=== PATIENT | male | born 1935 | race Caucasian/White ===

== ENCOUNTER 2018-05-06 14:43 | Emergency (ER) | payer MEDICARE ==
[~2018-05-06] VITALS: Ht 170.2 cm; Wt 81.6 kg
[2018-05-06 15:13] LABS: BASOPHILS % (AUTO) 0.3 % (0.0-2.0); EOSINOPHILS % (AUTO) 3.5 % (0.0-6.0); HEMATOCRIT 36 % (39-51); HEMOGLOBIN 12.8 g/dL (13.5-17.5); LYMPHOCYTES # (AUTO) 3.5 /CMM (0.8-4.8); LYMPHOCYTES % (AUTO) 29.7 % (20.0-44.0); MEAN CORPUSCULAR HEMOGLOBIN 31 PG (26.0-33.0); MEAN CORPUSCULAR HGB CONC 36 g/dl (31.0-36.0); MEAN CORPUSCULAR VOLUME 88 fL (80-96); MONOCYTES # (AUTO) 0.9 /CMM (0.1-1.30); MONOCYTES % (AUTO) 7.4 % (2.0-12.0); NEUTROPHILS # (AUTO) 7.1 /CMM (1.8-8.9); NEUTROPHILS % (AUTO) 59.1 % (43.0-81.0); PLATELET COUNT (AUTO) 241 /CMM (150-450); RDW COEFFICIENT OF VARIATION 12.1 (11.5-15.0); RED BLOOD CELL COUNT(AUTO) 4.11 MIL/uL (4.5-6.0); WHITE BLOOD COUNT (AUTO) 11.9 K/uL (4.3-11.0)
[2018-05-06 15:24] LABS: CALCIUM, SERUM 8.4 mg/dL (8.5-10.1); CARBON DIOXIDE 29 mmol/L (21-32); CHLORIDE 104 mmol/L (98-107); GLUCOSE 128 mg/dL (74-106); POTASSIUM 3.4 mmol/L (3.5-5.1); SODIUM SERUM 139 mmol/L (136-145); UREA NITROGEN, BLOOD 10 mg/dL (7-18)
[2018-05-06] MEDS ORDERED: IV NS 0.9% 500 ML BAG IV ONE (15:30)
[2018-05-06 15:40] LABS: APPEARANCE,URINE Cloudy (CLEAR); BILIRUBIN,URINE SMALL (NEGATIVE); BLOOD, URINE Large Ery/uL (NEGATIVE); COLOR,URINE Red (YELLOW); KETONES,URINE Negative (NEGATIVE); LEUKOCYTE ESTERASE ,URINE Trace (NEGATIVE); NITRITE, URINE Negative (NEGATIVE); PH,URINE 8.5 (5.0-8.0); PROTEIN,URINE >=300 mg/dl (NEGATIVE); UGLUCOSE Negative (NEGATIVE)
[2018-05-06 15:47] LABS: BACTERIA,URINE None seen /HPF (None Seen); RBC,URINE TOO NUMEROUS TO COUN /HPF (0-2); SQUAMOUS EPITHELIAL CELL,UR Few /HPF (None Seen); WBC,URINE 0-3 /HPF (0-3)
[2018-05-06 16:28] VITALS: BP 139/81
== END 2018-05-06 16:28 | disposition home or self-care (01) ==
LOC: ER 14:45
DX: R31.9 Hematuria, unspecified (principal); I10 Essential (primary) hypertension; N40.0 Benign prostatic hyperplasia without lower urinary tract symptoms; Z98.890 Other specified postprocedural states
CPT/HCPCS: 36415; 80048-TC; 81000-TC; 85025-TC; 85730-TC; 87086-TC; 87186-TC; A4606; J7040; Z7610

== ENCOUNTER 2018-05-13 10:46 | Emergency (ER) | payer MEDICARE ==
[~2018-05-13] VITALS: Ht 170.2 cm; Wt 79.4 kg
[2018-05-13 10:46] VITALS: BP 146/82
--- NOTE | 2018-05-13 10:55 | NUR ---
PATIENT TO ED FOR KO CATHETER REMOVAL. PATIENT HAS NO OTHER COMPLAIN,. VSS
--- NOTE | 2018-05-13 10:56 | NUR ---
MD GARCIA AT BEDSIDE.
--- NOTE | 2018-05-13 11:01 | NUR ---
PATIENT TOLERATED THE PROCEDURE.
--- NOTE | 2018-05-13 11:01 | NUR ---
DEJUAN KO PER DR GARCIA ORDER.
== END 2018-05-13 11:09 | disposition home or self-care (01) ==
LOC: ER 10:47
DX: Z46.6 Encounter for fitting and adjustment of urinary device (principal); R33.9 Retention of urine, unspecified; N40.0 Benign prostatic hyperplasia without lower urinary tract symptoms; Z98.890 Other specified postprocedural states
CPT/HCPCS: A4606; Z7610

== ENCOUNTER 2018-05-14 09:16 | Emergency (ER) | payer MEDICARE ==
[~2018-05-14] VITALS: Ht 172.7 cm; Wt 81.6 kg
[2018-05-14 09:26] VITALS: BP 153/90
== END 2018-05-14 10:15 | disposition home or self-care (01) ==
LOC: ER 09:17
DX: N40.1 Benign prostatic hyperplasia with lower urinary tract symptoms (principal); R33.8 Other retention of urine
CPT/HCPCS: A4606; Z7610

== ENCOUNTER 2019-05-13 11:42 | Emergency (ER) | payer MEDICARE, OTHER ==
[~2019-05-13] VITALS: Ht 167.6 cm; Wt 74.4 kg
[2019-05-13 14:05] VITALS: BP 146/85
--- NOTE | 2019-05-13 14:20 | NUR ---
BRANDEN CALLED FOR RIDE, ANGELA WILL BE BACK ANY MINUTE ACCORDING TO HER
--- NOTE | 2019-05-13 14:22 | NUR ---
KITCHEN CALLD FOR TO GO [facility] REQUESTED
--- NOTE | 2019-05-13 14:25 | NUR ---
Patient discharged to home in stable condition. Written and verbal after care instructions given. Patient verbalizes understanding of instruction.
== END 2019-05-13 14:47 | disposition home or self-care (01) ==
LOC: ER 11:42
DX: S42.432A Displaced fracture (avulsion) of lateral epicondyle of left humerus, initial encounter for closed fracture (principal); Z98.890 Other specified postprocedural states; X58.XXXA Exposure to other specified factors, initial encounter; Y93.89 Activity, other specified; Y92.89 Other specified places as the place of occurrence of the external cause; Y99.8 Other external cause status
CPT/HCPCS: 73080-TC; 73130-TC

== ENCOUNTER 2019-08-03 00:34 | Inpatient (IN) | payer MEDICARE ==
[~2019-08-03] VITALS: Ht 165.1 cm; Wt 68.0 kg
--- NOTE | 2019-08-03 00:50 | NUR ---
PT BIBFRIEND C/O DIFFICULTY SWALLOWING X1 WEEK. DENIES SOB, STATES DIFFICULT WHILE EATING PT STATES "MY FOOD DOESN'T STAY DOWN". PT AAOX4. RESPIRATIONS EVEN AND UNLABORED. SKIN WARM AND INTACT. NO ACUTE DISTRESS NOTED AT THIS TIME. PLACED ON MONITOR, WILL CONTINUE TO MONITOR
[2019-08-03] MEDS ORDERED: IV NS 0.9% 500 ML BAG IV ONE (01:00)
--- NOTE | 2019-08-03 01:10 | NUR ---
IV INITIATED RAC 20G. LABS DRAWN FROM SITE. STOCK PREPARER AT BEDSIDE FOR COLLECTION. IV INTACT AND PATENT, PLACED ON SALINE LOCK
[2019-08-03 01:15] LABS: BASOPHILS # (AUTO) 0.1 /CMM (0.0-0.2); BASOPHILS % (AUTO) 1.2 % (0.0-2.0); HEMATOCRIT 42 % (39-51); HEMOGLOBIN 14.2 g/dL (13.5-17.5); LYMPHOCYTES # (AUTO) 3.5 /CMM (0.8-4.8); LYMPHOCYTES % (AUTO) 27.6 % (20.0-44.0); MEAN CORPUSCULAR HGB CONC 34 g/dl (31.0-36.0); MEAN CORPUSCULAR VOLUME 89 fL (80-96); MONOCYTES # (AUTO) 1.3 /CMM (0.1-1.30); NEUTROPHILS # (AUTO) 7.2 /CMM (1.8-8.9); NEUTROPHILS % (AUTO) 57.2 % (43.0-81.0); PLATELET COUNT (AUTO) 408 /CMM (150-450); RED BLOOD CELL COUNT(AUTO) 4.65 MIL/uL (4.5-6.0); WHITE BLOOD COUNT (AUTO) 12.6 K/uL (4.3-11.0)
[2019-08-03 01:21] LABS: CALCIUM, SERUM 8.7 mg/dL (8.5-10.1); CARBON DIOXIDE 27 mmol/L (21-32); CHLORIDE 103 mmol/L (98-107); CREATININE 0.8 mg/dL (0.6-1.3); GLUCOSE 116 mg/dL (74-106); POTASSIUM 3.8 mmol/L (3.5-5.1); SODIUM SERUM 138 mmol/L (136-145); UREA NITROGEN, BLOOD 11 mg/dL (7-18)
[2019-08-03] MEDS ORDERED: MAGNESIUM HYDROXIDE 30 ML UDC PO PRN (02:30)
[2019-08-03] MEDS ORDERED: MAG HYDROX/AL HYDROX/SIMETH 30 ML UDC PO PRN (02:30)
[2019-08-03] MEDS ORDERED: Z GUARD REMEDY 2 OZ OINT TP PRN (02:30)
[2019-08-03] MEDS ORDERED: ACETAMINOPHEN 325 MG TABLET PO PRN (02:30)
[2019-08-03] MEDS ORDERED: ONDANSETRON HCL/PF 4 MG/2 ML VIAL IVP PRN (02:30)
[2019-08-03] MEDS ORDERED: HYDROCODONE/APAP 5/325MG 1 EACH TABLET PO PRN (02:30)
--- NOTE | 2019-08-03 03:26 | NUR ---
REPORT CALLED TO BLOW DOWN OPERATORCAROLA BROWN. WILL TRANSPORT PT VIA ACLS PROTOCOL.
--- NOTE | 2019-08-03 03:35 | NUR ---
PT WAS TRANSFERRED TO THE THIRD FLOOR IN STABLE CONDITION.
[2019-08-03 03:40] VITALS: BP 148/74
--- NOTE | 2019-08-03 03:40 | NUR ---
RN MS ADMITTING OPENING NOTES RECEIVED PATIENT FROM ER VIA GURNEY SAFELY TRANSFERRED TO BED, AWAKE ALERT AND ORIENTED X2 NOTED, RESPIRATIONS EVEN AND UNLABORED WITH EQUAL RISE AND FALL OF CHEST, DENIES ANY PAIN OR DISCOMFORT, KO CATHETER INTACT AND PATENT, NOTED URINE YELLOW WITH SLIGHT SEDIMENTS CLEAR, BODY ASSESSMENT DONE SACRAL REDNESS AND LEFT ARM SCAB PICTURES TAKEN IN CHART, BELONGINGS LIST DONE , FRIEND ANGELA CORADO WILL TAKE WALLET HOME PATIENT AWAKE, IV SITE TO RIGHT AC #20 G INTACT AND PATENT, NO REDNESS, NO INFILTRATION, NPO STATUS, ORIENTED TO STAFF AND CALL LIGHT AND KEPT WITHIN REACH,AT THIS TIME DISCUSSED PLAN OF CARE, REMAINS COMFORTABLE WILL CONTINUE TO MONITOR FOR ANY CHANGES AND FOLLOW MD ORDERS.
[2019-08-03] MEDS: IV NS 0.9% 1,000 ML IV PRN (04:15)
[2019-08-03 05:00] VITALS: BP 148/74
[2019-08-03] MEDS ORDERED: TAMS-12 PO (05:24)
--- NOTE | 2019-08-03 06:32 | NUR ---
RN MS CLOSING NOTES PATIENT IN BED AWAKE ALERT AND ORIENTED X2, RESPIRATIONS EVEN AND UNLABORED WITH EQUAL RISE AND FALL OF CHEST,DENIES ANY PAIN OR DISCOMFORT, KO CATHETER INTACT DRAINING WELL 250CC OUTPUT, IV SITE RIGHT AC #20 INTACT AND PATENT, IVF RUNNING ORDERED, REMAINS COMFORTABLE AND CLEAN AT THIS TIME, SAFETY PRECAUTIONS IN PLACE, LOW BED AND LOCKED, BED ALARM IN PLACE, ALL NEEDS ATTENDED AT THIS TIME, WILL CONTINUE TO MONITOR.
[2019-08-03] MEDS: PANTOPRAZOLE 40 MG VIAL IV SCH (07:30)
[2019-08-03 08:00] VITALS: BP 128/68
--- NOTE | 2019-08-03 11:20 | NUR ---
WOUND CARE CONSULT: PT PRESENTS WITH DRY ABRASIONS TO LEFT ELBOW AND BLANCHABLE REDNESS TO BUTTOCKS, PRESENT ON ADMISSION. RECOMMENDATIONS MADE FOR SKIN PROTECTION. DISCUSSED WITH NURSING STAFF. STEFANI RUBIO. WILL SEE PRN. HOWARD IN AGREEMENT WITH PLAN OF CARE. Addendum: 08/03/19 at 1121 by SUKUMAR GUILLAUME WNDNU Amended: Links added.
[2019-08-03 16:00] VITALS: BP 137/82
--- NOTE | 2019-08-03 17:00 | NUR ---
Urine sample sent to lab for US
--- NOTE | 2019-08-03 19:00 | NUR ---
Patient awake , resting in bed. Alert and oriented x2, episodes of forgetfulness. Patient remains NPO status, ice chips ok to take in upright position. Caregiver at bedside. Patient with F/C, for retention. Came with catheter from home. All needs attended. GI consult pending. All needs attended. Iv line flushing well. Will endorse to next shift for BRINA.
--- NOTE | 2019-08-03 19:10 | NUR ---
MS RN NOTES RECEIVED PT IN BED AWAKE AND ABLE TO MAKE NEEDS KNOWN WITH CAREGIVER AT BEDSIDE. PT A/O X2. RESPIRATIONS EVEN AND UNLABORED WITH NO S/S OF ACUTE DISTRESS OR SOB NOTED. NO COMPLAINTS OF PAIN AT THIS TIME. KO CATHETER INTACT AND DRAINING WELL. PT WITH RAC #20G PATENT AND INTACT. SAFETY MEASURES IN PLACE WITH BED IN LOWEST LOCKED POSITION WITH SIDE RAILS UP X2. CALL LIGHT WITHIN REACH. WILL CONTINUE TO MONITOR.
[2019-08-03 19:44] LABS: APPEARANCE,URINE Slightly Cloudy (CLEAR); BILIRUBIN,URINE Negative (NEGATIVE); BLOOD, URINE Small Ery/uL (NEGATIVE); COLOR,URINE Dark (YELLOW); KETONES,URINE Negative (NEGATIVE); LEUKOCYTE ESTERASE ,URINE Large (NEGATIVE); NITRITE, URINE Positive (NEGATIVE); PROTEIN,URINE 30 mg/dl (NEGATIVE); UGLUCOSE Negative (NEGATIVE)
[2019-08-03 20:00] VITALS: BP 145/71
[2019-08-03 20:13] LABS: BACTERIA,URINE Many /HPF (None Seen); SQUAMOUS EPITHELIAL CELL,UR Rare /HPF (None Seen)
[2019-08-03 20:14] LABS: WBC,URINE 51-80 /HPF (0-3)
--- NOTE | 2019-08-03 21:36 | NUR ---
MS RN NOTES EXPLAINED TO PT AND CAREGIVER ABOUT PENDING PROCEDURE. CAREGIVER WANTS TO WAIT BEFORE SIGNING CONSENT FORMS, STATED THAT HE WANTED TO TALKED TO THE DAUGHTER FIRST. CHARGE NURSE MADE AWARE. WILL CONTINUE TO MONITOR.
[2019-08-04 06:25] LABS: BASOPHILS # (AUTO) 0.1 /CMM (0.0-0.2); BASOPHILS % (AUTO) 0.9 % (0.0-2.0); EOSINOPHILS % (AUTO) 3.9 % (0.0-6.0); HEMATOCRIT 39 % (39-51); HEMOGLOBIN 13.4 g/dL (13.5-17.5); LYMPHOCYTES # (AUTO) 2.5 /CMM (0.8-4.8); LYMPHOCYTES % (AUTO) 23.6 % (20.0-44.0); MEAN CORPUSCULAR HGB CONC 34 g/dl (31.0-36.0); MEAN CORPUSCULAR VOLUME 89 fL (80-96); NEUTROPHILS # (AUTO) 6.5 /CMM (1.8-8.9); NEUTROPHILS % (AUTO) 61.6 % (43.0-81.0); PLATELET COUNT (AUTO) 394 /CMM (150-450); RED BLOOD CELL COUNT(AUTO) 4.41 MIL/uL (4.5-6.0); WHITE BLOOD COUNT (AUTO) 10.5 K/uL (4.3-11.0)
--- NOTE | 2019-08-04 06:35 | NUR ---
MS RN NOTES CAREGIVER SPOKE WITH PT'S SISTER, CONFIRMED THAT IT IS OK FOR PROCEDURE. WILL HAVE PT SIGN CONSENTS. PIPE ORGAN INSTALLER STATED THAT HE WILL HAVE IT SIGNED WITH ON COMING NURSE. CHARGE NURSE MADE AWARE.
--- NOTE | 2019-08-04 06:37 | NUR ---
MS RN NOTES PT IN BED ASLEEP BUT EASILY AWOKEN VERBALLY OR BY TOUCH. PT A/O X1-2 AND ABLE TO MAKE NEEDS KNOWN WITH CAREGIVER AT BEDSIDE. RESPIRATIONS EVEN AND UNLABORED WITH NO S/S OF ACUTE DISTRESS OR SOB NOTED THROUGHOUT SHIFT. NO COMPLAINTS OF PAIN AT THIS TIME. KO CATHETER INTACT AND DRAINING WELL. PT WITH RAC #20G PATENT AND INTACT. SAFETY MEASURES IN PLACE WITH BED IN LOWEST LOCKED POSITION WITH SIDE RAILS UP X2. PT KEPT CLEAN, DRY, AND COMFORTABLE. CALL LIGHT WITHIN REACH. WILL ENDORSE TO ONCOMING NURSE FOR BRINA.
[2019-08-04 06:45] LABS: CALCIUM, SERUM 8.5 mg/dL (8.5-10.1); CREATININE 0.6 mg/dL (0.6-1.3); PHOSPHORUS 3.2 mg/dL (2.5-4.9); POTASSIUM 3.6 mmol/L (3.5-5.1)
[2019-08-04 06:53] LABS: THYROID STIMULATING HORMONE 0.085 uIU/mL (0.358-3.74)
[2019-08-04] MEDS: PANTOPRAZOLE 40 MG VIAL IV SCH (07:30)
[2019-08-04 08:00] VITALS: BP 147/70
--- NOTE | 2019-08-04 08:25 | NUR ---
patient picked up by OR staff for scheduled EGD . Patient awake and oriented x2.
--- NOTE | 2019-08-04 10:30 | NUR ---
patient back from EGD . Awake and oriented x2 . stable on room air with VS within baseline
[2019-08-04] MEDS ORDERED: DIATR MEGLU/DIATRIZOATE SODIUM 120 ML BOTTLE (GASTROGRAPHIN) ONE ×2 (11:09→11:36)
[2019-08-04] MEDS ORDERED: BARIUM SULFATE 98% 135 ML SUSP.RECON PO ONE (11:10)
--- NOTE | 2019-08-04 11:11 | NUR ---
patient out of department for Esophagram
[2019-08-04] MEDS: CEFTRIAXONE 2 G in IV NS 0.9% 100 ML IV SCH (12:15)
--- NOTE | 2019-08-04 14:32 | NUR ---
patient had episode of confusion and pulled out IV line. A new IV line inserted to the right arm G22, Flushing well . Patient transferred to room 312-1 with a sitter for safety.Will continue to monitor.
[2019-08-04] MEDS: IV NS 0.9% 1,000 ML IV PRN (15:14)
[2019-08-04 16:00] VITALS: BP 139/74
[2019-08-04] MEDS ORDERED: CEPHALEXIN MONOHYDRATE 500 MG CAPSULE PO SCH (17:00)
--- NOTE | 2019-08-04 19:30 | NUR ---
MS RN PM OPENING NOTE BEDSIDE REPORT RECIEVED FROM SHERRY SRIVASTAVA. PT IN BED ALERT AND ORIENTED X2 CONVERSING. BLAYNE GUADALUPE A SITTER PRESENT AT THE BEDSIDE. RESPIRATIONS EVEN AND UNLABORED WITH NO S/S OF ACUTE DISTRESS DENIES COMPLAINTS OF PAIN AT THIS TIME. KO CATHETER INTACT AND DRAINING ANJALI URINE. SAFETY MEASURES IN PLACE WITH BED IN LOW LOCKED POSITION WITH SIDE RAILS UP X3. CALL LIGHT WITHIN REACH. WILL CONT TO MONITOR.
[2019-08-04 20:00] VITALS: BP 124/68
[2019-08-05] MEDS: PANTOPRAZOLE 40 MG VIAL IV SCH (06:15)
[2019-08-05] MEDS: IV NS 0.9% 1,000 ML IV PRN (06:16)
[2019-08-05 06:38] LABS: BASOPHILS # (AUTO) 0.1 /CMM (0.0-0.2); BASOPHILS % (AUTO) 1.2 % (0.0-2.0); EOSINOPHILS % (AUTO) 3.5 % (0.0-6.0); HEMATOCRIT 40 % (39-51); HEMOGLOBIN 13.4 g/dL (13.5-17.5); LYMPHOCYTES # (AUTO) 2.8 /CMM (0.8-4.8); LYMPHOCYTES % (AUTO) 24.6 % (20.0-44.0); MEAN CORPUSCULAR HGB CONC 34 g/dl (31.0-36.0); MEAN CORPUSCULAR VOLUME 89 fL (80-96); MONOCYTES % (AUTO) 8.7 % (2.0-12.0); NEUTROPHILS # (AUTO) 6.9 /CMM (1.8-8.9); PLATELET COUNT (AUTO) 399 /CMM (150-450); WHITE BLOOD COUNT (AUTO) 11.2 K/uL (4.3-11.0)
[2019-08-05 06:52] LABS: CALCIUM, SERUM 8.6 mg/dL (8.5-10.1); CREATININE 0.7 mg/dL (0.6-1.3); MAGNESIUM 2.2 mg/dL (1.8-2.4); POTASSIUM 3.5 mmol/L (3.5-5.1)
--- NOTE | 2019-08-05 07:25 | NUR ---
MS RN OPENING NOTES RECEIVED PT IN AWAKE. A/O X1. SITTER AT BEDSIDE. PT TOLERATING RA, WITH NO ACUTE RESPIRATORY DISTRESS NOTED. PT DENIES PAIN OR ANY DISCOMFORT AT THIS TIME. PT ALSO DENIES QUESTIONS OR CONCERNS AT THIS MOMENT. IVF NS AT 75ML/HR TO RFA G22, INTACT AND FLUID INFUSING WELL. PT KEPT COMFORTABLE IN BED. CALL LIGHT KEPT WITHIN REACH. HOB ELEVATED. PT'S BED IN LOWEST, LOCKED POSITION WITH SR X3. WILL CONTINUE PLAN OF CARE.
[2019-08-05] MEDS: CEFTRIAXONE 2 G in IV NS 0.9% 100 ML IV SCH (10:20)
[2019-08-05] MEDS ORDERED: CEPH-570 PO (14:40)
--- NOTE | 2019-08-05 15:30 | NUR ---
MS RN NOTES PT REFUSED FOR PICTURES TO BE TAKEN. STATING HE DOESN'T HAVE WOUNDS. SKIN NOTED INTACT BY RN. EXPLAINED UNIT PROTOCOL, PT INSISTED TO REFUSE AND EXCITED TO GO HOME.
--- NOTE | 2019-08-05 16:19 | NUR ---
MS ADULT PSYCHIATRIST NOTES PT TO DISCHARGE TO HOME. PT TOLERATING RA, WITH NO ACUTE RESPIRATORY DISTRESS NOTED. PT DENIES ANY PAIN OR DISCOMFORT AT THE TIME OF DISCHARGE. PIV TO RFA REMOVED, APPLIED DRY DRESSING. REVIEWED AND SIGNED DISCHARGE PAPERS AND INVENTORY LIST BY CAREGIVER/OTTIS. ALL BELONGINGS WITH THE PT. ALL NEEDS AND CARE ATTENDED AND PROVIDED. PT ESCORTED BY TRIM INSTALLER VIA WHEELCHAIR TO THE LOBBY WITH THE CAREGIVER. CN/BONNY AND HABITAT CONSERVATION PLANNER/LW AWARE OF DISCHARGE. PT LEFT THE UNIT AT 1600.
== END 2019-08-05 16:00 | disposition home health service (06) | DRG 392 ==
LOC: ER 00:34 → MED 02:38
PROVIDERS: ADMIT Registered Nurse; ATTEND Registered Nurse
PROC: 0DJ08ZZ Inspection of Upper Intestinal Tract, Via Natural or Artificial Opening Endoscopic (ICD-10-PCS; principal; 2019-08-04)
DX: K22.0 Achalasia of cardia (principal); N39.0 Urinary tract infection, site not specified; N40.0 Benign prostatic hyperplasia without lower urinary tract symptoms; I10 Essential (primary) hypertension; Z66 Do not resuscitate; D72.829 Elevated white blood cell count, unspecified; Z87.891 Personal history of nicotine dependence; B96.20 Unspecified Escherichia coli [E. coli] as the cause of diseases classified elsewhere; B95.2 Enterococcus as the cause of diseases classified elsewhere
CPT/HCPCS: 36415; 71045-TC; 74230-TC; 80048-TC; 80061-TC; 81000-TC; 83735-TC; 84100-TC; 84443-TC; 84484-TC; 85025-TC; 85730-TC; 87081-TC; 87086-TC; 87186-TC; 92526; 92611-TC; C9113; G0378; J0280; J0330; J0696; J7030; J7040; Q9963

== ENCOUNTER 2019-08-28 15:35 | Inpatient (IN) | payer MEDICARE ==
[~2019-08-28] VITALS: Ht 165.1 cm; Wt 66.2 kg
[~2019-08-28 15:35] MED LIST: CEPH-570 PO; TAMS-12 GT
--- NOTE | 2019-08-28 16:05 | NUR ---
[id number], FROM HOME, C/O R RIB PAIN x 2 DAYS, HAVING TROUBLE SWALLOWING x 2 WEEKS. RR IS EVEN AND UNLABORED WITH NAD NOTED. SKIN IS WARM AND DRY. PLACED ON THE MONITOR. WILL CONTINUOUSLY MONITOR THE PATIENT. AWAITING MD FOR EVAL.
--- NOTE | 2019-08-28 16:07 | NUR ---
DR GARCIA AT BS FOR EVAL.
[2019-08-28] MEDS ORDERED: IV NS 0.9% 500 ML BAG IV ONE (16:30)
[2019-08-28 16:31] LABS: BASOPHILS # (AUTO) 0.2 /CMM (0.0-0.2); BASOPHILS % (AUTO) 1.3 % (0.0-2.0); EOSINOPHILS % (AUTO) 3.7 % (0.0-6.0); HEMATOCRIT 38 % (39-51); HEMOGLOBIN 12.8 g/dL (13.5-17.5); LYMPHOCYTES # (AUTO) 3.7 /CMM (0.8-4.8); MEAN CORPUSCULAR HGB CONC 33 g/dl (31.0-36.0); MEAN CORPUSCULAR VOLUME 87 fL (80-96); MONOCYTES # (AUTO) 1.4 /CMM (0.1-1.30); MONOCYTES % (AUTO) 7.9 % (2.0-12.0); NEUTROPHILS # (AUTO) 11.8 /CMM (1.8-8.9); NEUTROPHILS % (AUTO) 66.1 % (43.0-81.0); PLATELET COUNT (AUTO) 535 /CMM (150-450); RED BLOOD CELL COUNT(AUTO) 4.42 MIL/uL (4.5-6.0); WHITE BLOOD COUNT (AUTO) 17.8 K/uL (4.3-11.0)
[2019-08-28 16:37] LABS: CALCIUM, SERUM 8.8 mg/dL (8.5-10.1); CARBON DIOXIDE 27 mmol/L (21-32); CHLORIDE 103 mmol/L (98-107); CREATININE 0.8 mg/dL (0.6-1.3); GLUCOSE 113 mg/dL (74-106); POTASSIUM 3.9 mmol/L (3.5-5.1); SODIUM SERUM 138 mmol/L (136-145); UREA NITROGEN, BLOOD 15 mg/dL (7-18)
[2019-08-28 16:43] LABS: ALANINE AMINOTRANSFERASE 58 U/L (12-78); ALBUMIN 2.6 g/dL (3.4-5.0); ALKALINE PHOSPHATASE 247 U/L (46-116); ASPARTATE AMINOTRANSFERASE 47 U/L (15-37); BILIRUBIN,DIRECT 0.3 mg/dL (0.0-0.2); BILIRUBIN,TOTAL 0.6 mg/dL (0.2-1.0); LIPASE 146 U/L (73-393); TOTAL PROTEIN, SERUM 8.5 g/dL (6.4-8.2)
--- NOTE | 2019-08-28 17:04 | NUR ---
UNABLE TO TOLERATE ORAL FLUIDS. DR GARCIA AWARE.
[2019-08-28] MEDS ORDERED: DONE5TAB34 GT (17:12)
[2019-08-28] MEDS ORDERED: IV NS 0.9% 1,000 ML IV ONE (17:30)
--- NOTE | 2019-08-28 18:17 | NUR ---
REQUESTED [facility] BED
[2019-08-28] MEDS ORDERED: TEMAZEPAM 15 MG CAPSULE PO PRN (19:30)
[2019-08-28] MEDS ORDERED: MAG HYDROX/AL HYDROX/SIMETH 30 ML UDC PO PRN ×2 (19:30)
[2019-08-28] MEDS ORDERED: Z GUARD REMEDY 2 OZ OINT TP PRN (19:30)
[2019-08-28] MEDS ORDERED: ACETAMINOPHEN 325 MG TABLET PO PRN (19:30)
[2019-08-28] MEDS ORDERED: MORPHINE SULFATE INJ 2 MG/ML DISP.SYRIN IV PRN (19:30)
[2019-08-28] MEDS ORDERED: ZOLPIDEM TARTRATE 5 MG TABLET PO PRN (19:30)
[2019-08-28] MEDS ORDERED: HYDROCODONE/APAP 5/325MG 1 EACH TABLET PO PRN (19:30)
[2019-08-28] MEDS ORDERED: MAGNESIUM HYDROXIDE 30 ML UDC PO PRN ×2 (19:30)
[2019-08-28] MEDS ORDERED: ONDANSETRON HCL/PF 4 MG/2 ML VIAL IVP PRN ×2 (19:30)
--- NOTE | 2019-08-28 19:41 | NUR ---
BED ASSIGNMENT 327-2
--- NOTE | 2019-08-28 19:55 | NUR ---
REPORT GIVEN TO CAROLA JOSE FOR BRINA.
--- NOTE | 2019-08-28 20:20 | NUR ---
RN ADMITTING NOTES RECEIVED PT FROM ER, VIA [place]TAE. PT AWAKE ALERT ORIENTED X3, NON AMBULATORY, BREATHING EVEN AND UNLABORED ON ROOM AIR. NO COMPLAINT OF PAIN OR DISCOMFORT AT THIS TIME. IV ACCESS ON THE L AC 18G SL. KO CATH IN PLACE AND DRAINING. BED IN LOWEST LOCKED POSITION, CALL LIGHT WITHIN REACH AT ALL TIMES, WILL CONTINUE TO MONITOR.
[2019-08-28] MEDS: IV D5/0.45 NACL 1,000 ML IV PRN (21:34)
[2019-08-28 22:30] VITALS: BP 124/57
[2019-08-29] VITALS: BP 136/76
[2019-08-29 04:28] VITALS: BP 127/67
--- NOTE | 2019-08-29 06:02 | NUR ---
RN CLOSING NOTES PT REMAINS IN BED SLEEPING INTERMITTENTLY, AND EASILY AROUSED TO NAME CALL. BREATHING EVEN AND UNLABORED ON ROOM AIR. IN NO APPARENT PAIN OR DISCOMFORT AT THIS TIME. IV ACCESS ON THE L WRIST 20G NS @75ML/HR. KO CATH IN PLACE AND DRAINING. BED IN LOWEST LOCKED POSITION, CALL LIGHT WITHIN REACH AT ALL TIMES, WILL ENDORSE TO DAY NURSE FOR BRINA.
[2019-08-29 06:32] LABS: BASOPHILS # (AUTO) 0.1 /CMM (0.0-0.2); BASOPHILS % (AUTO) 0.8 % (0.0-2.0); HEMATOCRIT 37 % (39-51); HEMOGLOBIN 12.3 g/dL (13.5-17.5); LYMPHOCYTES # (AUTO) 2.7 /CMM (0.8-4.8); LYMPHOCYTES % (AUTO) 18.2 % (20.0-44.0); MEAN CORPUSCULAR HGB CONC 33 g/dl (31.0-36.0); MEAN CORPUSCULAR VOLUME 87 fL (80-96); MONOCYTES # (AUTO) 1.1 /CMM (0.1-1.30); MONOCYTES % (AUTO) 7.7 % (2.0-12.0); NEUTROPHILS # (AUTO) 10.4 /CMM (1.8-8.9); NEUTROPHILS % (AUTO) 70.3 % (43.0-81.0); PLATELET COUNT (AUTO) 475 /CMM (150-450); RED BLOOD CELL COUNT(AUTO) 4.28 MIL/uL (4.5-6.0); WHITE BLOOD COUNT (AUTO) 14.8 K/uL (4.3-11.0)
[2019-08-29 06:41] LABS: ALBUMIN 2.3 g/dL (3.4-5.0); BILIRUBIN,TOTAL 0.7 mg/dL (0.2-1.0); CALCIUM, SERUM 8.3 mg/dL (8.5-10.1); CREATININE 0.6 mg/dL (0.6-1.3); PHOSPHORUS 2.6 mg/dL (2.5-4.9); POTASSIUM 3.5 mmol/L (3.5-5.1); TOTAL PROTEIN, SERUM 7.9 g/dL (6.4-8.2)
--- NOTE | 2019-08-29 07:30 | NUR ---
Tele/RN - AM Assessment Patient in bed awake, A/O x 1-2, confused at times, reality orientation provided, afebrile, c/o right rib pain but refused medication for now, stable on room air. Patient was admitted with Simon catheter for urinary retention, hx of BPH. Skin is intact. Fall and aspiration precautions maintained. Labs reviewed, no critical results noted. Patient is currently NPO for dysphagia, pending swallow evaluation and GI consult. All needs attended and met. Will continue with current medical management.
[2019-08-29 08:00] VITALS: BP 150/74
[2019-08-29] MEDS: DONEPEZIL 5 MG TABLET PO SCH (08:22)
[2019-08-29] MEDS: TAMSULOSIN 0.4 MG CAP.SR.24H PO SCH (08:22)
[2019-08-29] MEDS: ENOXAPARIN SODIUM 40 MG/0.4 ML DISP.SYRIN SQ SCH (08:47)
[2019-08-29] MEDS: IV D5/0.45 NACL 1,000 ML IV PRN (09:59)
--- NOTE | 2019-08-29 10:00 | NUR ---
Tele/RN - Hospitalist rounds Seen and examined by KAYLAH Andino with orders, noted and carried out. Urine specimen sent to lab for UA and culture.
[2019-08-29 10:32] LABS: APPEARANCE,URINE CLOUDY (CLEAR); BILIRUBIN,URINE NEGATIVE (NEGATIVE); BLOOD, URINE TRACE-INTA Ery/uL (NEGATIVE); KETONES,URINE NEGATIVE (NEGATIVE); LEUKOCYTE ESTERASE ,URINE MODERATE (NEGATIVE); NITRITE, URINE POSITIVE (NEGATIVE); PROTEIN,URINE NEGATIVE (NEGATIVE); UGLUCOSE NEGATIVE (NEGATIVE)
[2019-08-29 10:34] LABS: COLOR,URINE DARK YELLOW (YELLOW)
[2019-08-29 10:38] LABS: BACTERIA,URINE Many /HPF (None Seen); SQUAMOUS EPITHELIAL CELL,UR Few /HPF (None Seen); WBC,URINE TOO NUMEROUS TO COUN /HPF (0-3)
[2019-08-29] MEDS ORDERED: KETOROLAC TROMETHAMINE INJ 30 MG/ML VIAL IV PRN (11:00)
[2019-08-29] MEDS: ACETYLCYSTEINE 10% SOLN 400 MG/4 ML VIAL NEB SCH ×3 (11:00→23:07)
[2019-08-29] MEDS: ALBUTEROL FS 2.5 MG/0.5 ML VIAL.NEB NEB SCH ×4 (11:31→23:07)
[2019-08-29] MEDS ORDERED: ZOSYN IVPB 3.375 G in IV D5W 50ml IV ONE (12:00)
--- NOTE | 2019-08-29 12:24 | NUR ---
RT NOTE PT REC'D ON 4L NASAL CANNULA. PT ALERT, AWAKE, ORIENTED, NO SOB NOTED AT THIS TIME, CPT NOT PERFORMED DUE CONTRAINDICATION OF RIBS FRACTURED. XRAY SHOWS CLEAR LUNGS WITH RIBS FRACTURED. RN AWARE. Addendum: 08/29/19 at 1228 by ELISEO MULTANI RT Amended: Links added.
[2019-08-29 16:29] VITALS: BP 151/71
--- NOTE | 2019-08-29 17:30 | NUR ---
Tele/RN - End of shift summary No significant change in condition seen, tele shows SR, remain afebrile, on oxygen at 4lpm via NC, no c/o pain. Patient failed swallow test, remain NPO, keep IVF to maintain hydration, Zosyn for UTI. Dr. Hale spoke to sister Radha regarding PEG placement but refused. All needs attended and met. Will continue with current plan of care.
--- NOTE | 2019-08-29 19:00 | NUR ---
PACKER DRIED BEEF OPENING NOTES Received patient A/O x1-2, awake, on low Hopson's position. With O2 inhalation via NC at 2LPM, saturating well. With occasional productive cough noted with thin whitish secretions noted, suction PRN. Patient denies any pain at this time. Repositioned patient o High Hopson's. Ensure mouth cleared from secretions. Kept on bed clean, dry and comfortable. Call light within easy reach. On fall precautions. Will continue to monitor accordingly.
--- NOTE | 2019-08-29 19:01 | NUR ---
YARN EXAMINER NOTES Patient on tele monitor with NSR noted.
[2019-08-29] MEDS: PIPERACILLIN /TAZOBACTAM 3.375 G in IV D5W 100 ML IV SCH (19:50)
[2019-08-29 20:00] VITALS: BP 151/75
[2019-08-30] VITALS (7 sets, daily range): BP systolic 112–153; BP diastolic 54–79
[2019-08-30] MEDS: PIPERACILLIN /TAZOBACTAM 3.375 G in IV D5W 100 ML IV SCH ×3 (03:00→20:23)
[2019-08-30] MEDS: ALBUTEROL FS 2.5 MG/0.5 ML VIAL.NEB NEB SCH ×5 (04:13→20:44)
--- NOTE | 2019-08-30 06:23 | NUR ---
CARBON PAPER MACHINE OPERATOR CLOSING NOTES Patient intermittent asleep, on O2 inhalation via NC @ 3LPM, saturating well. Still with copious secretions, suctions PRN. Oral care provided. On breathing treatment Q4h as ordered. All due meds given as ordered, no ASE noted. All nursing needs attended. Kept patient on bed clean, dry and comfortable. With minimal output noted. Turned and repositioned patient every 2 hrs. Call light within easy reach. On tele monitor with NSR noted. For video swallow as ordered. Endorsed to the next shift. for BRINA.
[2019-08-30 06:58] LABS: BASOPHILS # (AUTO) 0.1 /CMM (0.0-0.2); BASOPHILS % (AUTO) 0.7 % (0.0-2.0); EOSINOPHILS % (AUTO) 3.5 % (0.0-6.0); HEMATOCRIT 36 % (39-51); HEMOGLOBIN 11.8 g/dL (13.5-17.5); LYMPHOCYTES % (AUTO) 14.4 % (20.0-44.0); MEAN CORPUSCULAR HGB CONC 33 g/dl (31.0-36.0); MEAN CORPUSCULAR VOLUME 86 fL (80-96); MONOCYTES # (AUTO) 1.2 /CMM (0.1-1.30); MONOCYTES % (AUTO) 8.2 % (2.0-12.0); NEUTROPHILS # (AUTO) 10.4 /CMM (1.8-8.9); NEUTROPHILS % (AUTO) 73.2 % (43.0-81.0); PLATELET COUNT (AUTO) 449 /CMM (150-450); RED BLOOD CELL COUNT(AUTO) 4.14 MIL/uL (4.5-6.0); WHITE BLOOD COUNT (AUTO) 14.2 K/uL (4.3-11.0)
[2019-08-30 07:24] LABS: CALCIUM, SERUM 8.3 mg/dL (8.5-10.1); CREATININE 0.7 mg/dL (0.6-1.3); POTASSIUM 3.4 mmol/L (3.5-5.1)
--- NOTE | 2019-08-30 07:30 | NUR ---
TELE/ RN - AM Assessment Patient in bed awake, A/O x2. Confused, oriented to time, date and place. Patient is on NPO for dysphagia. Patient is showing no signs of acute distress or SOB. NSR noted. Saturating well on 2L NC. Patient has bowling catheter for urinary retention. Skin is intact. Patient is on fall and aspiration precautions. Bed is in lowest position, side rails x3, in upright position. Will continue to monitor and continue with current medical management.
--- NOTE | 2019-08-30 08:01 | NUR ---
TELE/RN - Potassium lab Labs reviewed, Potassium is 3.4. Will notify Thu ADRIAN.
[2019-08-30] MEDS: TAMSULOSIN 0.4 MG CAP.SR.24H PO SCH (08:19)
[2019-08-30] MEDS: DONEPEZIL 5 MG TABLET PO SCH (08:19)
[2019-08-30] MEDS: ACETYLCYSTEINE 10% SOLN 400 MG/4 ML VIAL NEB SCH ×2 (08:27→15:28)
[2019-08-30] MEDS: ENOXAPARIN SODIUM 40 MG/0.4 ML DISP.SYRIN SQ SCH (08:32)
[2019-08-30] MEDS: POTASSIUM CL. PREMIX PERIPHER. 50 ML IV SCH ×4 (10:23→13:19)
[2019-08-30] MEDS: IV D5/0.45 NACL 1,000 ML IV PRN (10:26)
--- NOTE | 2019-08-30 17:41 | NUR ---
TELE/RN CLOSING NOTE PATIENT RESTING IN BED, A/O X2, SHOWING NO SIGNS OF ACUTE DISTRESS OR SOB AND SATURATING >95% ON 2L NC. FAMILY IS AT THE BEDSIDE. TELE MONITOR NSR. IV SITE ON LEFT WRIST IS CLEAN AND PATENT. ALL DUE MEDS GIVEN AND ALL PATIENT'S NEEDS WERE MET. AWAITING TRANSFER TO [facility] FOR HIGHER LEVEL OF CARE. BED IS IN LOWEST POSITION, SIDE RAILS X3 IN UPRIGHT POSITION, CALL LIGHT IS WITHIN REACH. WILL ENDORSE TO AFTER SCHOOL COUNSELOR.
--- NOTE | 2019-08-30 19:15 | NUR ---
SPINNING AND WINDING SUPERVISOR NOTES RECEIVED ON BED A/O X1-2,ABLE TO RESPOND TO NAME.CAREGIVER AT BEDSIDE,IVF IN PROGRESS ON LEFT FORE ARM VIA IV PUMP.SITE PATENT.KO IN PLACE DRAINING YELLOW ORANGE OUTPUT.HX OF FALL AT HOME,SUSTAINED RIB FRACTURE,NO SURGICAL INTERVENTION.NEEDS FREQUENT ORAL SUCTION,WITH LOTS OF MUCUS.O2 IN USED AT 2L/NC TO KEEP O2 SAT ABOVE 90%.WILL CONTINUE TO MONITOR STATUS.
--- NOTE | 2019-08-30 20:00 | NUR ---
DIRECTOR DIGITAL STRATEGY NOTES SR WITH PAC-89 ON TELE MONITOR.
--- NOTE | 2019-08-30 20:30 | NUR ---
ASSISTANT PROFESSOR OF RELIGION NOTES RT AT BEDSIDE,ASSIST WITH NASAL SUCTIONING.
[2019-08-31] VITALS: BP 125/66
[2019-08-31] MEDS: ALBUTEROL FS 2.5 MG/0.5 ML VIAL.NEB NEB SCH ×7 (00:22→23:39)
[2019-08-31] MEDS: ACETYLCYSTEINE 10% SOLN 400 MG/4 ML VIAL NEB SCH ×4 (00:22→23:39)
[2019-08-31 04:00] VITALS: BP 150/74
[2019-08-31] MEDS: PIPERACILLIN /TAZOBACTAM 3.375 G in IV D5W 100 ML IV SCH ×3 (04:13→20:11)
--- NOTE | 2019-08-31 04:45 | NUR ---
TRAFFIC DIVISION COMMANDING OFFICER NOTES RONEL RN FROM [facility] CALLED FOR UPDATE ON THIS PATIENT,STILL NO ROOM FOR POEM PROCEDURE.CHARGE NURSE MADE AWARE.
--- NOTE | 2019-08-31 06:31 | NUR ---
DEVELOPER AUTOMATIC NOTES FAIRLY RESTED AT NIGHT,NO SOB NOTED,FREQUENT SUCTIONING RENDERED,REPOSITION PER PROTOCOL.BREATHING TREATMENT TOLERATED WELL.KO CATH DRAINS WELL,IN NO ACUTE DISTRESS.WILL ENDORSE TO DAY NURSE FOR BRINA.
[2019-08-31 07:10] LABS: BASOPHILS # (AUTO) 0.1 /CMM (0.0-0.2); BASOPHILS % (AUTO) 0.9 % (0.0-2.0); EOSINOPHILS % (AUTO) 3.6 % (0.0-6.0); HEMATOCRIT 37 % (39-51); LYMPHOCYTES # (AUTO) 2.2 /CMM (0.8-4.8); LYMPHOCYTES % (AUTO) 14.2 % (20.0-44.0); MEAN CORPUSCULAR HGB CONC 33 g/dl (31.0-36.0); MEAN CORPUSCULAR VOLUME 86 fL (80-96); MONOCYTES # (AUTO) 1.4 /CMM (0.1-1.30); NEUTROPHILS # (AUTO) 11.4 /CMM (1.8-8.9); NEUTROPHILS % (AUTO) 72.3 % (43.0-81.0); PLATELET COUNT (AUTO) 486 /CMM (150-450); RED BLOOD CELL COUNT(AUTO) 4.27 MIL/uL (4.5-6.0); WHITE BLOOD COUNT (AUTO) 15.8 K/uL (4.3-11.0)
[2019-08-31 07:12] LABS: CALCIUM, SERUM 8.6 mg/dL (8.5-10.1); CREATININE 0.6 mg/dL (0.6-1.3); MAGNESIUM 2.3 mg/dL (1.8-2.4); PHOSPHORUS 2.7 mg/dL (2.5-4.9); POTASSIUM 3.8 mmol/L (3.5-5.1)
--- NOTE | 2019-08-31 07:30 | NUR ---
AUTO HAULAWAY DRIVER OPENING NOTES: RECEIVED PATIENT ON BED A/O X1-2, CONFUSED AND FORGETFUL. VERBALLY RESPONSIVE TO NAME. HX OF FALL AT HOME, SUSTAINED RIB FRACTURE. SR ON 70'S. NO SOB NOTED. NO SIGNS OF DISTRESS. NO COMPLAINS OF PAIN AT THIS TIME. SKIN IS INTACT, IV ACCESS ON LEFT FA #20G INTACT AND PATENT. KO CATHETER IN PLACE DRAINING YELLOW ORANGE OUTPUT. SAFETY MEASURES KEPT IN PLACE. BED IN LOW, LOCKED POSITION WITH SIDE RAILS X2 UP.
[2019-08-31 08:00] VITALS: BP 153/78
[2019-08-31] MEDS: DONEPEZIL 5 MG TABLET PO SCH (08:14)
[2019-08-31] MEDS: TAMSULOSIN 0.4 MG CAP.SR.24H PO SCH (08:15)
[2019-08-31] MEDS: ENOXAPARIN SODIUM 40 MG/0.4 ML DISP.SYRIN SQ SCH (09:17)
[2019-08-31] MEDS ORDERED: FEE PK DOSING 1 MIN EA MC ONE (11:05)
--- NOTE | 2019-08-31 11:41 | NUR ---
RN NOTES PT FOR EGD AND PEG INSERTION TOMORROW. PROCEDURES EXPLAINED TO DAUGHTER BY KAYLAH OMALLEY. TEL CONSENTS OBTAINED AND VERIFIED BY ANOTHER RN. PT MAINTAINED ON NPO. WILL CONTINUE TO MONITOR. Addendum: 08/31/19 at 1244 by CHET LOPEZ RN ADDENDUM: TELEPHONE CONSENTS OBTAINED FROM DAUGHTER BRANDEN BARTLETT.
[2019-08-31] MEDS: IV D5/0.45 NACL 1,000 ML IV PRN (12:00)
[2019-08-31] MEDS: VANCOMYCIN 0.75 GM in IV D5W 250 ML IV SCH (12:29)
[2019-08-31 13:02] LABS: ABG OXYGEN SATURATION 96.7 % (92.0-98.5); ABG PCO2 36.6 mmHg (35.0-45.0); ABG PH 7.462 (7.350-7.450); ABG PO2 85.9 mmHg (75.0-100.0); AaDO2 70.6 mmHg; COHb 0.5 % (0.5-1.5); MetHb 0.3 % (0.0-1.5); O2Hb 95.9 % (94.0-97.0); SITE, ABG Right Radial
[2019-08-31 16:00] VITALS: BP 155/87
--- NOTE | 2019-08-31 18:50 | NUR ---
PACKING SHED SUPERVISOR CLOSING NOTES: PATIENT IS AWAKE AND RESTING IN BED AT THIS TIME. A/O X2, WITH PERIODS OF CONFUSION AND FORGETFULNESS. NO SIGNS OF SOB OR DISTRESS, SATURATING WELL ON 2L OF NASAL CANNULA AT 96% WITH HOB ELEVATED. TELE MONITORING OF HR OF 74. IV SITE ON LEFT WRIST #20G INTACT AND PATENT. ALL NURSING NEEDS WERE MET AND PROVIDED. SAFETY MEASURES KEPT IN PLACE. BED ALARM ON, BED IN THE LOW AND LOCKED POSITION. CALL LIGHT WITHIN EASY REACH. WILL ENDORSE TO WALL TAPER HELPER FOR BRINA.
--- NOTE | 2019-08-31 19:15 | NUR ---
SALON SALES CONSULTANT NOTES RECEIVED ON BED A/O X1-2,WITH PERIODS OF CONFUSION AND FORGETFULNESS.O2 AT 3L/NC IN USED.WITH BREATHING TREATMENT Q 4 AND DEEP SUCTIONING Q [address] ORDERED[address]KO CATH IN PLACE DRAINING YELLOW ORANGE OUTPUT.WITH IVF INFUSING WELL ON LEFT ARM,SITE PATENT.CALL LIGHT IN REACH,NEEDS ANTICIPATED.
[2019-08-31 20:00] VITALS: BP 124/80
--- NOTE | 2019-08-31 20:00 | NUR ---
CERTIFIED ENDOSCOPY TECHNICIAN NOTES DUE IV ZOSYN LALO,INFUSING VIA IV PUMP.
--- NOTE | 2019-08-31 20:00 | NUR ---
SPECIAL EDUCATION SUPERINTENDENT NOTES RT AT BEDSIDE FOR DEEP SUCTIONING AND TO ADMINISTER BREATHING TREATMENT SCHEDULED.
[2019-08-31 22:43] VITALS: BP 122/78
[2019-09-01] VITALS (15 sets, daily range): BP systolic 113–155; BP diastolic 59–88
[2019-09-01] MEDS: ALBUTEROL FS 2.5 MG/0.5 ML VIAL.NEB NEB SCH ×6 (02:36→22:56)
[2019-09-01] MEDS: PIPERACILLIN /TAZOBACTAM 3.375 G in IV D5W 100 ML IV SCH ×3 (03:51→20:07)
[2019-09-01] MEDS: VANCOMYCIN 0.75 GM in IV D5W 250 ML IV SCH (06:00)
--- NOTE | 2019-09-01 06:31 | NUR ---
LINUX SOLARIS ADMINISTRATOR NOTES SLEPT WITH INTERVALS,NASOTRACHEAL SUCTIONING RENDERED,IVF REMAINS PATENT.KEPT NPO FOR EGD WITH PEG PLACEMENT,CONSENT ON CHART.KO REMAINS INTACT AND PATENT.IV ABX TOLERATED WELL.IN NO ACUTE DISTRESS.
[2019-09-01 07:10] LABS: CALCIUM, SERUM 8.7 mg/dL (8.5-10.1); CREATININE 0.7 mg/dL (0.6-1.3); MAGNESIUM 2.1 mg/dL (1.8-2.4); PHOSPHORUS 3.1 mg/dL (2.5-4.9); POTASSIUM 3.3 mmol/L (3.5-5.1)
[2019-09-01 07:24] LABS: BASOPHILS # (AUTO) 0.2 /CMM (0.0-0.2); BASOPHILS % (AUTO) 0.9 % (0.0-2.0); EOSINOPHILS % (AUTO) 3.3 % (0.0-6.0); HEMATOCRIT 37 % (39-51); HEMOGLOBIN 12.3 g/dL (13.5-17.5); LYMPHOCYTES # (AUTO) 2.4 /CMM (0.8-4.8); LYMPHOCYTES % (AUTO) 14.4 % (20.0-44.0); MEAN CORPUSCULAR HGB CONC 34 g/dl (31.0-36.0); MEAN CORPUSCULAR VOLUME 85 fL (80-96); MONOCYTES # (AUTO) 1.5 /CMM (0.1-1.30); NEUTROPHILS # (AUTO) 12.1 /CMM (1.8-8.9); NEUTROPHILS % (AUTO) 72.4 % (43.0-81.0); PLATELET COUNT (AUTO) 485 /CMM (150-450); RED BLOOD CELL COUNT(AUTO) 4.29 MIL/uL (4.5-6.0); WHITE BLOOD COUNT (AUTO) 16.7 K/uL (4.3-11.0)
--- NOTE | 2019-09-01 07:29 | NUR ---
MANAGER ARCHITECTURE OPENING NOTES Patient remains 3L nasal cannula, no sob noted, patient awake and alert lying down on bed comfortably with sitter bedside. Simon remains intact, NPO except medications and has an EGD with PEG placement at 0830. Lovenox to be held at this time. Bed at the lowest setting, call light within reach, side rails up x2.
[2019-09-01] MEDS: ACETYLCYSTEINE 10% SOLN 400 MG/4 ML VIAL NEB SCH ×3 (08:02→22:56)
[2019-09-01] MEDS: TAMSULOSIN 0.4 MG CAP.SR.24H PO SCH (08:14)
[2019-09-01] MEDS: ENOXAPARIN SODIUM 40 MG/0.4 ML DISP.SYRIN SQ SCH (08:14)
[2019-09-01] MEDS: DONEPEZIL 5 MG TABLET PO SCH (08:14)
[2019-09-01] MEDS ORDERED: ALBUTEROL FS 2.5 MG/3 ML VIAL.NEB ONE (09:46)
[2019-09-01] MEDS ORDERED: POTASSIUM CHLORIDE 20 MEQ TAB.PRT.SR PO SCH (11:00)
--- NOTE | 2019-09-01 13:07 | NUR ---
DIRECTOR LABOR STANDARDS NOTES Patient transfered to ICU at this time. Transported with 3L o2. Report given, and chart left with patient.
[2019-09-01 13:37] LABS: ABG BASE EXCESS 2.3 mmol/L; ABG OXYGEN SATURATION 98.8 % (92.0-98.5); ABG PCO2 35.7 mmHg (35.0-45.0); ABG PH 7.474 (7.350-7.450); ABG PO2 152.3 mmHg (75.0-100.0); AaDO2 55.8 mmHg; COHb 0.4 % (0.5-1.5); MetHb 0.3 % (0.0-1.5); O2Hb 98.1 % (94.0-97.0); VENT MODE, BG Nasal Cannula
--- NOTE | 2019-09-01 13:53 | NUR ---
RN NOTE 1320: Received patient from 3W via bed, A/Ox2 with confusion, AEB verbalizing "I wanna go home, I wanna see my parents.". Noted with gurgling sound during coughing, 99% O2 sat on 3 LPM via NC. PIV on LFA intact, placed new PIV on RFA. Simon cath intact, noted with cloudy colored urine drained to BSD. SR on the monitor. GT intact, newly placed per report. No c/o pain at this time. 1350: Left nare trumpet placed by RT. Suctioned via NT by RT. ABG done, Dr. Oneal in the unit aware for the result. Placed O2 supplement to 1LPM for high pO2. Kept HOB elevated. Resting well now, VSS, will continue to monitor.
--- NOTE | 2019-09-01 18:30 | NUR ---
RN NOTE No any significant changes noted. Still with copious amount of secretions when coughing, suctioned via NT frequently, noted with pinkish thick secretions. Kept HOB elevated. Left nares trumpet intact. Turned and repositioned q2. Kept clean, warm and dry. Needs attended. Son [place] aware for the POC. Remained on 1 LPM of O2 via NC Simon intact, noted with hayden colored urine drained to BSD.
--- NOTE | 2019-09-01 20:37 | NUR ---
RESEARCH DAIRY FARM SUPERVISOR INITIAL NOTES: RECEIVED PATIENT ON BED A/O X1-2, CONFUSED AND FORGETFUL. VERBALLY RESPONSIVE , PRODUCTIVE WITH BLOOD TINGE SECRETIONS PER ORAL, SUCTION ALSO PROVIDED VIA LT NASAL TRUMPET, SUSTAINED RIB FRACTURE, GENTLE REPOSITIONING Q2H AND PRN. SR ON 80'S. NO SOB NOTED. NO SIGNS OF DISTRESS. NO COMPLAINS OF PAIN AT THIS TIME. SKIN IS INTACT, IV ACCESS ON LEFT FA #20G INTACT AND PATENT. KO CATHETER IN PLACE DRAINING YELLOW ORANGE OUTPUT. SAFETY MEASURES KEPT IN PLACE. BED IN LOW, LOCKED POSITION WITH SIDE RAILS X2 UP.
[2019-09-02] VITALS (28 sets, daily range): BP systolic 117–150; BP diastolic 55–100
[2019-09-02] MEDS: VANCOMYCIN 0.75 GM in IV D5W 250 ML IV SCH (00:43)
[2019-09-02] MEDS: ALBUTEROL FS 2.5 MG/0.5 ML VIAL.NEB NEB SCH ×5 (03:19→20:11)
[2019-09-02] MEDS: PIPERACILLIN /TAZOBACTAM 3.375 G in IV D5W 100 ML IV SCH ×2 (04:09→12:17)
[2019-09-02 04:52] LABS: BASOPHILS % (AUTO) 0.1 % (0.0-2.0); HEMATOCRIT 35 % (39-51); HEMOGLOBIN 11.4 g/dL (13.5-17.5); LYMPHOCYTES # (AUTO) 2.3 /CMM (0.8-4.8); LYMPHOCYTES % (AUTO) 13.7 % (20.0-44.0); MEAN CORPUSCULAR HGB CONC 33 g/dl (31.0-36.0); MEAN CORPUSCULAR VOLUME 86 fL (80-96); MONOCYTES % (AUTO) 5.9 % (2.0-12.0); NEUTROPHILS # (AUTO) 13.7 /CMM (1.8-8.9); NEUTROPHILS % (AUTO) 80.3 % (43.0-81.0); PLATELET COUNT (AUTO) 449 /CMM (150-450); RED BLOOD CELL COUNT(AUTO) 4.04 MIL/uL (4.5-6.0); WHITE BLOOD COUNT (AUTO) 17.1 K/uL (4.3-11.0)
[2019-09-02 04:56] LABS: CALCIUM, SERUM 8.4 mg/dL (8.5-10.1); CREATININE 0.6 mg/dL (0.6-1.3); MAGNESIUM 2.2 mg/dL (1.8-2.4); PHOSPHORUS 2.6 mg/dL (2.5-4.9); POTASSIUM 3.3 mmol/L (3.5-5.1)
--- NOTE | 2019-09-02 06:45 | NUR ---
STEEL INSPECTOR CLOSING NOTES: PATIENT ON BED A/O X1-2, CONFUSED AND FORGETFUL. VERBALLY RESPONSIVE , PRODUCTIVE WITH BLOOD TINGE SECRETIONS PER ORAL, SUCTION ALSO PROVIDED VIA LT NASAL TRUMPET, SUSTAINED RIB FRACTURE, GENTLE REPOSITIONING Q2H AND PRN. SR ON 80'S. NO SOB NOTED. NO SIGNS OF DISTRESS. NO COMPLAINS OF PAIN AT THIS TIME. SKIN IS INTACT, IV ACCESS ON LEFT FA #20G INTACT AND PATENT. KO CATHETER IN PLACE DRAINING YELLOW ORANGE OUTPUT. PT FOR POSSIBLE TRANSFER FOR HLOC FOR POEM OR BOTOX TRA CALLED REGARDING PT STATUS, WILL CALL BACK TODAY IN AM, WILL ENDORSE FOR AM RN TO NOTIFY MD. SAFETY MEASURES KEPT IN PLACE. BED IN LOW, LOCKED POSITION WITH SIDE RAILS X2 UP.
--- NOTE | 2019-09-02 07:10 | NUR ---
PLUG MAKER INITIAL NOTES Rec'd pt on bed, A/O x 1-2, confused, not in any distress, denies any pain/discomfort. On NC at 2lpm, no SOB. SR on telemonitor. Has IV line access on RFA G20 w/ D5 1/2 NS x 75 cc/hr infusing well, LFA G20 SL, both patent & intact w/ no s/sx of infection/infiltration noted. Has B soft wrist restraints on d/t episode of pulling out lines last night & trying to get OOB per report. Has FC draining to BSB w/ hayden UOP. Safety precaution in place w/ bed in lowest & locked pos. Call light placed w/in reach. Will cont to monitor & attend pt needs.
[2019-09-02] MEDS: ACETYLCYSTEINE 10% SOLN 400 MG/4 ML VIAL NEB SCH ×2 (07:39→15:39)
[2019-09-02] MEDS: IV D5/0.45 NACL 1,000 ML IV PRN (07:48)
[2019-09-02] MEDS: TAMSULOSIN 0.4 MG CAP.SR.24H PO SCH (08:13)
[2019-09-02] MEDS: DONEPEZIL 5 MG TABLET PO SCH (08:14)
[2019-09-02] MEDS: Z GUARD REMEDY 2 OZ OINT TP PRN (08:14)
[2019-09-02] MEDS: ENOXAPARIN SODIUM 40 MG/0.4 ML DISP.SYRIN SQ SCH (08:14)
[2019-09-02] MEDS: LACTOBACILLUS RHAMNOSUS GG 1 EACH CAP.SPRINK PO SCH ×2 (09:02→16:26)
[2019-09-02] MEDS: POTASSIUM CL. PREMIX PERIPHER. 50 ML IV SCH ×4 (09:03→12:17)
--- NOTE | 2019-09-02 10:00 | NUR ---
Wilder Adrian at bedside, B soft wrist restraints removed for now. Pt verbalized understanding of not pulling lines. Will closely monitor.
--- NOTE | 2019-09-02 11:30 | NUR ---
Dr. Gil, updated about pt status.
--- NOTE | 2019-09-02 11:45 | NUR ---
Per Thu, HAND SLITTER may start GTF per RD recommendation.
--- NOTE | 2019-09-02 12:06 | NUR ---
Pt seen & examined by KAYLAH Andino, updated about pt condition.
[2019-09-02] MEDS: OSMOLITE 1.2 CAL 1,000 ML LIQUID GT PRN (12:19)
[2019-09-02] MEDS ORDERED: VANCOMYCIN 0.75 GM in IV D5W 250 ML IV SCH (13:00)
--- NOTE | 2019-09-02 14:05 | NUR ---
Pt seen & examined by Dr. Hale, updated about pt status.
--- NOTE | 2019-09-02 16:13 | NUR ---
Pt pulled out IV line, placed on B soft wrist restraints for safety.
[2019-09-02] MEDS ORDERED: MEROPENEM 500 MG in IV NS 0.9% 50 ML IV ONE (18:00)
--- NOTE | 2019-09-02 18:31 | NUR ---
TELEVISION SCRIPT WRITER CLOSING NOTES Pt resting comfortably on his bed, not in any distress. Tolerating NC at 2lpm, no SOB. SR on telemonitor. IV line access on RFA G20 w/ D5 1/2 NS x 75 cc/hr infusing well, LFA G20 SL, both kept patent & intact w/ no s/sx of infection/infiltration noted. B soft wrist restraints kept on d/t episode of pulling out lines & confusion. FC draining to BSB w/ adequate hayden UOP. Safety precaution kept in place at all times w/ bed in lowest & locked pos. Call light placed w/in reach. Will endorse to PM RN for BRINA.
--- NOTE | 2019-09-02 20:00 | NUR ---
INCREASED FEEDING RATE TO 35 ML/HR PER ORDERS. PATIENT HAS 0 RESIDUAL ON 25 ML/HR. WILL CONTINUE TO MONITOR. NEXT INCREASE WOULD BE AT 0400 TO 45ML/HR.
[2019-09-03] VITALS (25 sets, daily range): BP systolic 113–162; BP diastolic 59–89
[2019-09-03] MEDS: MEROPENEM 500 MG in IV NS 0.9% 100 ML IV SCH ×4 (00:03→23:01)
[2019-09-03] MEDS: ACETYLCYSTEINE 10% SOLN 400 MG/4 ML VIAL NEB SCH ×3 (00:19→15:25)
[2019-09-03] MEDS: ALBUTEROL FS 2.5 MG/0.5 ML VIAL.NEB NEB SCH ×6 (00:19→20:14)
[2019-09-03] MEDS: ACETAMINOPHEN 325 MG TABLET PO PRN ×3 (00:34→23:01)
[2019-09-03] MEDS: IV D5/0.45 NACL 1,000 ML IV PRN ×2 (01:42→16:20)
--- NOTE | 2019-09-03 04:19 | NUR ---
INCREASED TUBE FEEDING RATE TO 45 ML/HR PER ORDERS. PATIENT CONTINUES TO HAVE 0 RESIDUAL ON 35 ML/HR WILL RECHECK TO EVALUATE IF PATIENT IS TOLERATING NEW RATE.
[2019-09-03 04:36] LABS: BASOPHILS # (AUTO) 0.1 /CMM (0.0-0.2); BASOPHILS % (AUTO) 0.4 % (0.0-2.0); EOSINOPHILS % (AUTO) 1.3 % (0.0-6.0); HEMATOCRIT 35 % (39-51); HEMOGLOBIN 11.4 g/dL (13.5-17.5); LYMPHOCYTES # (AUTO) 2.8 /CMM (0.8-4.8); LYMPHOCYTES % (AUTO) 16.6 % (20.0-44.0); MEAN CORPUSCULAR HGB CONC 33 g/dl (31.0-36.0); MEAN CORPUSCULAR VOLUME 85 fL (80-96); MONOCYTES # (AUTO) 1.7 /CMM (0.1-1.30); MONOCYTES % (AUTO) 10.3 % (2.0-12.0); NEUTROPHILS # (AUTO) 11.9 /CMM (1.8-8.9); NEUTROPHILS % (AUTO) 71.4 % (43.0-81.0); PLATELET COUNT (AUTO) 452 /CMM (150-450); RED BLOOD CELL COUNT(AUTO) 4.05 MIL/uL (4.5-6.0); WHITE BLOOD COUNT (AUTO) 16.7 K/uL (4.3-11.0)
[2019-09-03 04:41] LABS: CALCIUM, SERUM 8.3 mg/dL (8.5-10.1); CREATININE 0.6 mg/dL (0.6-1.3); PHOSPHORUS 2.6 mg/dL (2.5-4.9); POTASSIUM 3.4 mmol/L (3.5-5.1)
--- NOTE | 2019-09-03 06:28 | NUR ---
PATIENT REMAINS IN NO ACUTE DISTRESS IN BED. PATIENT DID NOT HAVE ANY SIGNIFICANT CHANGE IN CONDITION DURING SHIFT.ALL NEEDS MET, ALL ORDERS CARRIED OUT. WILL ENDORSE CARE TO AM RN FOR CONTINUITY OF CARE.
--- NOTE | 2019-09-03 07:10 | NUR ---
PRODUCE PRODUCTION TEAM MEMBER INITIAL NOTES Rec'd pt on bed, A/O x 1-2, confused, not in any distress, denies any pain/discomfort. On NC at 2lpm, no SOB. SR on telemonitor. Has IV line access on RFA G20 w/ D5 1/2 NS x 75 cc/hr infusing well, LFA G20 SL, both patent & intact w/ no s/sx of infection/infiltration noted. Has B soft wrist restraints on d/t trying to get OOB. Has GT patent & intact, on Osmolite 1.2 x 45 cc/hr infusing well, no residual noted upon checking. Has FC draining to BSB w/ hayden UOP. Safety precaution in place w/ bed in lowest & locked pos. Call light placed w/in reach. Will cont to monitor & attend pt needs.
[2019-09-03] MEDS ORDERED: POTASSIUM CHLORIDE 20 MEQ POWDER PACKET GT ONE (08:00)
[2019-09-03] MEDS: TAMSULOSIN 0.4 MG CAP.SR.24H PO SCH (08:22)
[2019-09-03] MEDS: LACTOBACILLUS RHAMNOSUS GG 1 EACH CAP.SPRINK PO SCH ×2 (08:23→16:19)
[2019-09-03] MEDS: DONEPEZIL 5 MG TABLET PO SCH (08:23)
[2019-09-03] MEDS: Z GUARD REMEDY 2 OZ OINT TP PRN (08:24)
[2019-09-03] MEDS: ENOXAPARIN SODIUM 40 MG/0.4 ML DISP.SYRIN SQ SCH (08:24)
--- NOTE | 2019-09-03 13:00 | NUR ---
Dr. Gil updated about pt condition.
--- NOTE | 2019-09-03 13:25 | NUR ---
Pt seen & examined by KAYLAH Andino, updated about pt condition.
[2019-09-03] MEDS: OSMOLITE 1.2 CAL 1,000 ML LIQUID GT PRN (16:20)
--- NOTE | 2019-09-03 16:45 | NUR ---
Pt seen & examined by KAYLAH Amor, updated about pt status, informed her re: Tmax 100.7, made orders & carried out.
--- NOTE | 2019-09-03 18:52 | NUR ---
IT BUSINESS ANALYST CLOSING NOTES Pt resting on his bed, not in any distress. Tolerating NC at 2lpm, no SOB. Frequent deep & oral suctioning done. SR on telemonitor. IV line access on LFA G20 w/ D5 1/2 NS x 75 cc/hr infusing well, R wrist G20 SL, both kept patent & intact w/ no s/sx of infection/infiltration noted. FC draining to BSB w/ adequate hayden UOP. Safety precaution kept in place at all times w/ bed in lowest & locked pos. Call light placed w/in reach. Will endorse to PM RN for BRINA.
--- NOTE | 2019-09-03 20:00 | NUR ---
RECRUITER - NOTES - Pt resting in bed Tolerating NC at 2lpm, no SOB. Frequent deep & oral suctioning done. SR on telemonitor. IV line access on LFA G20 w/ D5 1/2 NS x 75 cc/hr infusing well, R wrist G20 SL, both kept patent & intact w/ no s/sx of infection/infiltration noted. FC draining to gravity w/ adequate hayden UOP. Safety precaution kept in place at all times w/ bed in lowest & locked pos. Call light placed w/in reach. Will continue to monitor
--- NOTE | 2019-09-03 20:10 | NUR ---
TF INCREASED TO GOAL RATE 65 ML/HR, 0 RESIDUALS, TOLERATING WELL, WILL REASSESS RESIDUALS
--- NOTE | 2019-09-03 20:45 | NUR ---
NT SUCTIONING DONE BY RT, TRUMPET PLACED FOR NT SUCTIONING. PT TOLERATED WELL
[2019-09-04] VITALS (26 sets, daily range): BP systolic 105–160; BP diastolic 52–82
[2019-09-04] MEDS: ALBUTEROL FS 2.5 MG/0.5 ML VIAL.NEB NEB SCH ×7 (00:03→23:38)
[2019-09-04] MEDS: ACETYLCYSTEINE 10% SOLN 400 MG/4 ML VIAL NEB SCH ×4 (00:03→23:38)
[2019-09-04 04:22] LABS: BASOPHILS # (AUTO) 0.1 /CMM (0.0-0.2); BASOPHILS % (AUTO) 0.6 % (0.0-2.0); EOSINOPHILS % (AUTO) 2.1 % (0.0-6.0); HEMATOCRIT 35 % (39-51); HEMOGLOBIN 11.6 g/dL (13.5-17.5); LYMPHOCYTES # (AUTO) 2.7 /CMM (0.8-4.8); LYMPHOCYTES % (AUTO) 15.1 % (20.0-44.0); MEAN CORPUSCULAR HGB CONC 33 g/dl (31.0-36.0); MEAN CORPUSCULAR VOLUME 87 fL (80-96); MONOCYTES % (AUTO) 11.1 % (2.0-12.0); NEUTROPHILS # (AUTO) 12.5 /CMM (1.8-8.9); NEUTROPHILS % (AUTO) 71.1 % (43.0-81.0); PLATELET COUNT (AUTO) 431 /CMM (150-450); RED BLOOD CELL COUNT(AUTO) 4.08 MIL/uL (4.5-6.0); WHITE BLOOD COUNT (AUTO) 17.6 K/uL (4.3-11.0)
[2019-09-04 04:27] LABS: CALCIUM, SERUM 8.4 mg/dL (8.5-10.1); CREATININE 0.7 mg/dL (0.6-1.3); MAGNESIUM 2.3 mg/dL (1.8-2.4); PHOSPHORUS 2.6 mg/dL (2.5-4.9); POTASSIUM 3.6 mmol/L (3.5-5.1)
--- NOTE | 2019-09-04 07:10 | NUR ---
RN INITIAL NOTES RECEIVED PT AWAKE/DROWSY. ON 02 VIA NC. HOB ELEVATED. NASAL TRUMPET IN PLACE. NO SIGNS OF PAIN NOTED. IV LINES IN PLACE. TOLERATING GTF. NO RESIDUAL NOTED. FC IN PLACE. NO HEMATURIA NOTED. BLE ELEVATED. AWAITING TO TRANSFER TO HIGHER LEVEL OF CARE. WILL MONITOR
[2019-09-04] MEDS: MEROPENEM 500 MG in IV NS 0.9% 100 ML IV SCH ×3 (07:47→23:46)
[2019-09-04] MEDS: TAMSULOSIN 0.4 MG CAP.SR.24H PO SCH (08:25)
[2019-09-04] MEDS: LACTOBACILLUS RHAMNOSUS GG 1 EACH CAP.SPRINK PO SCH ×2 (08:25→16:20)
[2019-09-04] MEDS: DONEPEZIL 5 MG TABLET PO SCH (08:25)
[2019-09-04] MEDS: ENOXAPARIN SODIUM 40 MG/0.4 ML DISP.SYRIN SQ SCH (08:26)
[2019-09-04] MEDS: OSMOLITE 1.2 CAL 1,000 ML LIQUID GT PRN (08:32)
--- NOTE | 2019-09-04 09:30 | NUR ---
RN NOTES 0900 SEEN AND EXAMINED BY DR ISAAC. PT ON 02 VIA NC. NEEDS FREQUENT SUCTIONING VIA NASAL TRUMPET. KEPT HOB ELEVATED. 02 SAT 98-100%. WILL MONITOR 0930 SEEN AND EXAMINED BY DOMINGO OMALLEY NP. AWARE OF LAB VALUES. AWAITING FOR SPUTUM, URINE AND BLOOD CULTURE RESULT. STILL WAITING TO TRANSFER TO HIGHER LEVEL OF CARE. WILL CLOSELY MONITOR
[2019-09-04] MEDS: ACETAMINOPHEN 325 MG TABLET PO PRN (15:39)
--- NOTE | 2019-09-04 17:00 | NUR ---
RN NOTES PT NOTED WITH NO PALPABLE PULSE. BP UNAPPRECIATED. NO RISE AND FALL OF CHEST NOTED. PT PRONOUNCED BY CAROLA MCKEON AND CAROLA COOL AT 1650. DR SPIKE HAINES NOTIFIED. FAMILY AT BEDSIDE. CALLED [facility], SPOKE WITH VANESSA. ALL PERTINENT INFO GIVEN. REFERENCE #[id number]. [facility], NOTIFIED BY KELLEY (SON). Addendum: 09/04/19 at 1740 by LINDA SALAS RN ... DISREGARD NOTE. WRONG PT
--- NOTE | 2019-09-04 18:38 | NUR ---
RN CLOSING NOTES NO SIGNIFICANT CHANGE NOTED. PT A/OX1. ON 02 VIA NC. KEPT HOB ELEVATED. REQUIRED FREQUENT SUCTIONING. NO SOB NOTED. NO SIGNS OF PAIN NOTED. TOLERATING GTF WELL. KEPT COMFORTABLE. REPOSITIONED Q2. BLE ELEVATED. WILL ENDORSE FOR CONTINUITY OF CARE.
--- NOTE | 2019-09-04 20:00 | NUR ---
IRON WORKER APPRENTICE - NOTES - RECEIVED PT AWAKE ALERT ON 02 VIA NC. HOB ELEVATED. NASAL TRUMPET IN PLACE. NO SIGNS OF PAIN NOTED. IV LINES IN PLACE. TOLERATING GTF. NO RESIDUAL NOTED. FC IN PLACE. NO HEMATURIA NOTED. BLE ELEVATED. WILL MONITOR
--- NOTE | 2019-09-04 21:16 | NUR ---
PT REQUIRING FREQUENT SUCTIONING, PT IS AWAKE ALERT ABLE TO CONVERSE. PT CAREGIVER ANGELA CORADO PHONE NUMBER IS [phone]. (INCORRECT NUMBER IS LISTED ON FACE SHEET)
[2019-09-05] VITALS (27 sets, daily range): BP systolic 110–164; BP diastolic 58–87
[2019-09-05] MEDS: ACETAMINOPHEN 325 MG TABLET PO PRN ×3 (00:04→22:17)
--- NOTE | 2019-09-05 00:20 | NUR ---
report given to Kae Xie RN for BRINA
--- NOTE | 2019-09-05 00:25 | NUR ---
RN NOTES, RECEIVED PATIENT FROM CAROLA OCAMPO FOR CONTINUATION OF CARE, BREATHING EVEN AND UNLABORED, UNABLE TO REMOVE SECRETIONS, ON 02 VIA NC WITH 100% SATURATION LEVEL, HOB ELEVATED. NASAL TRUMPET IN PLACE, SUCTIONED AT THIS TIME, NO SIGNS OF PAIN OR DISCOMFORT NOTED, PEG IN PLACED PATENT AND INTACT, TOLERATED GTF WELL, WITH NO RESIDUAL, IV LINES IN PLACE., PATENT AND INTACT, FC IN PLACE DRAINING YELLOW URINE, PATENT Y INTACT, ALL SAFETY MEASURES IN PLACED, WILL MONITOR CONTINUE TO MONITOR CLOSELY.
[2019-09-05] MEDS: ALBUTEROL FS 2.5 MG/0.5 ML VIAL.NEB NEB SCH ×7 (03:30→23:39)
[2019-09-05] MEDS: OSMOLITE 1.2 CAL 1,000 ML LIQUID GT PRN ×2 (04:23→23:33)
[2019-09-05 04:47] LABS: BASOPHILS # (AUTO) 0.1 /CMM (0.0-0.2); BASOPHILS % (AUTO) 0.6 % (0.0-2.0); EOSINOPHILS % (AUTO) 1.9 % (0.0-6.0); HEMATOCRIT 35 % (39-51); HEMOGLOBIN 11.5 g/dL (13.5-17.5); LYMPHOCYTES # (AUTO) 3.2 /CMM (0.8-4.8); LYMPHOCYTES % (AUTO) 13.8 % (20.0-44.0); MEAN CORPUSCULAR HGB CONC 33 g/dl (31.0-36.0); MEAN CORPUSCULAR VOLUME 86 fL (80-96); MONOCYTES # (AUTO) 1.8 /CMM (0.1-1.30); MONOCYTES % (AUTO) 7.6 % (2.0-12.0); NEUTROPHILS # (AUTO) 17.6 /CMM (1.8-8.9); NEUTROPHILS % (AUTO) 76.1 % (43.0-81.0); PLATELET COUNT (AUTO) 457 /CMM (150-450); RED BLOOD CELL COUNT(AUTO) 4.09 MIL/uL (4.5-6.0); WHITE BLOOD COUNT (AUTO) 23.2 K/uL (4.3-11.0)
[2019-09-05 05:03] LABS: CALCIUM, SERUM 8.4 mg/dL (8.5-10.1); CREATININE 0.6 mg/dL (0.6-1.3); MAGNESIUM 1.9 mg/dL (1.8-2.4); PHOSPHORUS 2.8 mg/dL (2.5-4.9); POTASSIUM 3.8 mmol/L (3.5-5.1)
--- NOTE | 2019-09-05 05:50 | NUR ---
RN NOTES, INFORMED JACQUELINE BOB FEATHER WASHER ABOUT CRITICAL RESULTS ABOUT CHEST X RAYS THIS MORNING REPORTED FROM RADIOLOGY, WHERE THEY POINTED NEW BILATERAL NODULAR OPACITIES AND INFECTION OR SEPTIC EMBOLI WOULD BE LIKELY CONSIDER AND INFORMED HIM THAT CT WITH IV CONTRAST IS RECOMMENDED, PER JACQUELINE DO CT CHEST WITHOUT CONTRAST, NOTED AND CARRIED OUT.
--- NOTE | 2019-09-05 07:00 | NUR ---
RN NOTES, PATIENT IN BED AWAKE A/O ABLE TO LET NEEDS KNOW, BREATHING EVEN AND UNLABORED, UNABLE TO REMOVE SECRETIONS, FREQUENT SUCTIONING VIA RIGHT TRUMPET DONE DURING THE SHIFT, ON 02 VIA NC WITH 100% SATURATION LEVEL, HOB ELEVATED. NASAL TRUMPET IN PLACE, NO SIGNS OF PAIN OR DISCOMFORT NOTED, STATED FEELING OK, PEG IN PLACED PATENT AND INTACT, TOLERATED GTF WELL, WITH NO RESIDUAL, IV LINES IN PLACE., PATENT AND INTACT, FC IN PLACE DRAINING YELLOW URINE, PATENT Y INTACT, ALL SAFETY MEASURES IN PLACED, WILL ENDORSE CONTINUITY OF CARE TO ONCOMING NURSE.
[2019-09-05] MEDS: ACETYLCYSTEINE 10% SOLN 400 MG/4 ML VIAL NEB SCH ×3 (07:27→23:40)
--- NOTE | 2019-09-05 08:00 | NUR ---
ICU/RN AM SHIFT INITIAL NOTES RECEIVED PT AWAKE IN BED (HOB @ 40 DEGREES), A/O X 1-2 NOTED WITH OCCASIONAL CONFUSION. NO ACUTE RESPIRATORY DISTRESS NOTED, PT DENIES HAVING SHORTNESS OF BREATH, ON 2L O2 VIA N/C, SATURATING @ 100%, RESPIRATIONS EVEN & UNLABORED, RHONCHI LUNG SOUNDS, BEING SUCTIONED BY RESPIRATORY THERAPIST. ON TELE MONITORING WITH SINUS RHYTHM, HR 89. IV SITES PATENT, NO S/S OF INFECTION, ON TKO. GTF ON GOING @ 65CC/HR (GOAL RATE), NO GASTRIC RESIDUAL NOTED, FLUSHED, PATENT. KO CATHETER INTACT WITH ANJALI COLORED YELLOW (WITH SEDIMENTS) URINE OUTPUT. PT REPOSITIONED, COMFORTABLE, SCHEDULED AM MEDS TO BE GIVEN. CL WITHIN REACHED AND SAFETY MAINTAINED. ON GOING MONITORING.
--- NOTE | 2019-09-05 08:30 | NUR ---
ICU/RN ROUNDS - DR. ISAAC PT SEEN & EXAMINED BY DR. ISAAC WITH PT'S SON AT BEDSIDE. MD SPOKE TO PT'S SON REGARDING THE BOTOX PROCEDURE HE WANTED FOR HIS FATHER TO BE PERFORMED AT [facility], PER MD PT NOT IN STABLE CONDITION FOR THE SAID PROCEDURE.
[2019-09-05] MEDS: MEROPENEM 500 MG in IV NS 0.9% 100 ML IV SCH ×3 (08:36→23:16)
[2019-09-05] MEDS: LACTOBACILLUS RHAMNOSUS GG 1 EACH CAP.SPRINK PO SCH ×2 (08:37→16:07)
[2019-09-05] MEDS: DONEPEZIL 5 MG TABLET PO SCH (08:37)
[2019-09-05] MEDS: TAMSULOSIN 0.4 MG CAP.SR.24H PO SCH (08:37)
[2019-09-05] MEDS: ENOXAPARIN SODIUM 40 MG/0.4 ML DISP.SYRIN SQ SCH (08:40)
[2019-09-05] MEDS ORDERED: VANCOMYCIN HCL 1.25 GM in IV D5W 260 ML IV SCH (10:30)
[2019-09-05] MEDS ORDERED: FEE PK DOSING 1 MIN EA MC ONE (10:43)
--- NOTE | 2019-09-05 10:46 | NUR ---
ICU/RN CT OF CHEST PT RETURNED TO ROOM IN STABLE CONDITION, S/P CT OF CHEST WITHOUT CONTRAST. CONTINUING TO MONITOR.
--- NOTE | 2019-09-05 10:53 | NUR ---
ICU/RN ROUNDS - DR. ROBERTS UPDATED PT'S CONDITION. PT SEEN & EXAMINED BY DR. ROBERTS. NEW ORDERS NOTED.
[2019-09-05] MEDS ORDERED: VANCOMYCIN HCL 1 GM in IV D5W 250 ML IV SCH (11:00)
--- NOTE | 2019-09-05 17:16 | NUR ---
ICU/RN AFTERNOON ROUNDS PM CARE PROVIDED. NO CHANGE OF CONDITION. MONITORING CONTINUED.
--- NOTE | 2019-09-05 19:16 | NUR ---
ICU/RN AM SHIFT END NOTES ALL NEEDS MET. NO ACUTE CHANGE OF CONDITION DURING THE SHIFT. PT ENDORSED TO PM NURSE TO CONTINUE CARE.
[2019-09-06] VITALS (26 sets, daily range): BP systolic 108–151; BP diastolic 59–77
[2019-09-06] MEDS: ALBUTEROL FS 2.5 MG/0.5 ML VIAL.NEB NEB SCH ×6 (04:11→23:18)
[2019-09-06 04:23] LABS: BASOPHILS # (AUTO) 0.1 /CMM (0.0-0.2); BASOPHILS % (AUTO) 0.3 % (0.0-2.0); HEMATOCRIT 34 % (39-51); HEMOGLOBIN 11.2 g/dL (13.5-17.5); LYMPHOCYTES # (AUTO) 2.9 /CMM (0.8-4.8); LYMPHOCYTES % (AUTO) 11.7 % (20.0-44.0); MEAN CORPUSCULAR HGB CONC 33 g/dl (31.0-36.0); MEAN CORPUSCULAR VOLUME 86 fL (80-96); MONOCYTES # (AUTO) 2.5 /CMM (0.1-1.30); MONOCYTES % (AUTO) 10.1 % (2.0-12.0); NEUTROPHILS % (AUTO) 73.9 % (43.0-81.0); PLATELET COUNT (AUTO) 457 /CMM (150-450); RED BLOOD CELL COUNT(AUTO) 3.93 MIL/uL (4.5-6.0); WHITE BLOOD COUNT (AUTO) 24.4 K/uL (4.3-11.0)
[2019-09-06 04:33] LABS: CALCIUM, SERUM 8.7 mg/dL (8.5-10.1); CREATININE 0.6 mg/dL (0.6-1.3); POTASSIUM 4.2 mmol/L (3.5-5.1)
[2019-09-06] MEDS: ACETYLCYSTEINE 10% SOLN 400 MG/4 ML VIAL NEB SCH ×3 (07:42→23:18)
[2019-09-06] MEDS: MEROPENEM 500 MG in IV NS 0.9% 100 ML IV SCH ×3 (08:47→23:37)
[2019-09-06] MEDS: LACTOBACILLUS RHAMNOSUS GG 1 EACH CAP.SPRINK PO SCH ×2 (09:31→16:23)
[2019-09-06] MEDS: DONEPEZIL 5 MG TABLET PO SCH (09:31)
[2019-09-06] MEDS: TAMSULOSIN 0.4 MG CAP.SR.24H PO SCH (09:31)
[2019-09-06] MEDS: ENOXAPARIN SODIUM 40 MG/0.4 ML DISP.SYRIN SQ SCH (09:32)
--- NOTE | 2019-09-06 10:52 | NUR ---
RN NOTES 0730-RECCEIVED PATIENT FROM RN. PATIENT AWAKE, ALERT, FOLLOWS SIMPLE COMMANDS.ORAL CARE DONE AFTER SUCTIONING. HOB UP. NO SIGN OF PAIN. 1000-RESTING ORAL CARE DONE, NO SIGN OF PAIN.
--- NOTE | 2019-09-06 12:43 | NUR ---
RN NOTES 1200-SKIN WARM, TEMP ORALLY 98.9.PATIENT ORAL CARE DONE, SUCTIONING DONE WELL. COACHED HIM TO COUGH TIME TO TIME.
[2019-09-06] MEDS: Z GUARD REMEDY 2 OZ OINT TP PRN (12:57)
[2019-09-06] MEDS: ACETAMINOPHEN 325 MG TABLET PO PRN ×2 (13:01→18:39)
[2019-09-06] MEDS: OSMOLITE 1.2 CAL 1,000 ML LIQUID GT PRN (13:02)
--- NOTE | 2019-09-06 14:05 | NUR ---
RNNOTES 1400-PATIENT VISITED BY HIS FRIEND, FERMIN, PATIENT WIDE AWAKE, ALERT, COMMUNICATES VERBALLY. NO SIGN OF PAIN.
--- NOTE | 2019-09-06 15:07 | NUR ---
RNNOTES 1500-PATIENT SUCTIONED NASOTRACHEALLY AND ORALLY, HOB UP, SAFETY MAINTAINED, AROM/PROM DONE. OTTIS AT BEDSIDE.
--- NOTE | 2019-09-06 16:56 | NUR ---
RN NOTES PATIENT ATTEMPTED TO HAVE A BM. PATIENT REMAINS WITH NEED TO SUCTION NASOTRACHEALLY, ORALLY, HOB UP.
--- NOTE | 2019-09-06 17:06 | NUR ---
RN NOTES PATIENT SEEN BY DR. YOSEF MD SPOKE TO ANGELA, PATIENT SISTER'S PHONE ALSO PROVIDED, DR NAVAS STATES SHE WILL CALL HER
--- NOTE | 2019-09-06 19:00 | NUR ---
RECEIVED PATIENT IN NO ACUTE DISTRESS IN BED. PATIENT IS A/O X 2 WITH PERIODS OF CONFUSION. PATIENT IS ON O2 VIA NC AT 2LPM AND TOLERATING WELL. PATIENT CONTINUES TO HAVE EXCESSIVE SECRETIONS WITH FREQUENT SUCTIONING. PATIENT IS NOT C/O ANY SOB, DIFFICULTY BREATHING OR PAIN AT THIS TIME. PATIENT IS ON TELEMETRY WITH SR WITH BBB ON THE MONITOR. PATIENT HAS PEG TUBE THAT IS CLEAN DRY INTACT AND PATENT WITH OSMOLITE RUNNING AT 65ML/HR AND TOLERATING WELL WITH 0 RESIDUAL. PATIENT HAS F/C THAT IS CLEAN DRY INTACT AND PATENT WITH YELLOW URINE DRAINING. PATIENT HAS BILATERAL FOREARM 20G IV THAT ARE CLEAN DRY INTACT AND PATENT WITH SALINE FLUSH. BED IN LOW LOCK POSITION WITH RAILS UP X 2. CALL LIGHT WITHIN REACH AND ALL SAFETY MEASURES ENSURED AND CARRIED OUT. WILL CONTINUE TO MONITOR PATIENT.
--- NOTE | 2019-09-06 19:05 | NUR ---
RN NOTES PATIENT RESTING. SUCTIONING DONE EARLIER, HE STATES "IT IS UNCOMFORTABLE(SUCTIONING)" EXPLAINED TO HIM THE BENEFIT OF SUCTIONING. MEDICATED FOR DISCOMFORT. REPORT GIVEN TO INCOMING RN FOR FURTHER CARE.
--- NOTE | 2019-09-06 22:00 | NUR ---
DEEP SUCTION PATIENT WITH SMALL WHITE SECRETIONS SUCTIONED. PATIENT TOLERATED PROCEDURE, BUT STATED IT WAS UNCOMFORTABLE. EDUCATION ON THE NEED OF THE PROCEDURE AND PATIENT VERBALIZED UNDERSTANDING.
[2019-09-07] VITALS (26 sets, daily range): BP systolic 103–158; BP diastolic 55–100
--- NOTE | 2019-09-07 | NUR ---
DEEP SUCTION PATIENT WITH AGAIN SMALL AMOUNT OF SECRETIONS NOTED. PATIENT TOLERATED WELL.
--- NOTE | 2019-09-07 02:00 | NUR ---
DEEP SUCTION PATIENT WITH MEDIUM AMOUNT OF WHITE SECRETIONS NOTED. PATIENT TOLERATED WELL.
[2019-09-07] MEDS: ALBUTEROL FS 2.5 MG/0.5 ML VIAL.NEB NEB SCH ×6 (03:21→23:37)
--- NOTE | 2019-09-07 04:00 | NUR ---
DEEP SUCTION PATIENT WITH SMALL WHITE SECRETIONS NOTED. PATIENT TOLERATED WELL.
[2019-09-07 04:24] LABS: BASOPHILS # (AUTO) 0.1 /CMM (0.0-0.2); BASOPHILS % (AUTO) 0.4 % (0.0-2.0); EOSINOPHILS % (AUTO) 2.8 % (0.0-6.0); HEMATOCRIT 35 % (39-51); HEMOGLOBIN 11.3 g/dL (13.5-17.5); LYMPHOCYTES # (AUTO) 2.7 /CMM (0.8-4.8); LYMPHOCYTES % (AUTO) 10.2 % (20.0-44.0); MEAN CORPUSCULAR HGB CONC 33 g/dl (31.0-36.0); MEAN CORPUSCULAR VOLUME 86 fL (80-96); MONOCYTES # (AUTO) 2.2 /CMM (0.1-1.30); MONOCYTES % (AUTO) 8.3 % (2.0-12.0); NEUTROPHILS # (AUTO) 20.7 /CMM (1.8-8.9); NEUTROPHILS % (AUTO) 78.3 % (43.0-81.0); PLATELET COUNT (AUTO) 477 /CMM (150-450); RED BLOOD CELL COUNT(AUTO) 4.03 MIL/uL (4.5-6.0); WHITE BLOOD COUNT (AUTO) 26.4 K/uL (4.3-11.0)
[2019-09-07 04:31] LABS: CALCIUM, SERUM 8.4 mg/dL (8.5-10.1); CREATININE 0.6 mg/dL (0.6-1.3); POTASSIUM 4.4 mmol/L (3.5-5.1)
[2019-09-07 05:12] LABS: THYROID STIMULATING HORMONE 9.516 uIU/mL (0.358-3.74)
--- NOTE | 2019-09-07 05:39 | NUR ---
RECEIVED CALL FROM [facility]NAG[facility] AT [facility] WITH UPDATE THAT THERE STILL HAVE NO BED AVAILABLE TO TRANSFER PATIENT. WILL UPDATE DAYSHIFT RN TO FOLLOW UP WITH OUR CASE MANAGEMENT.
--- NOTE | 2019-09-07 06:00 | NUR ---
DEEP SUCTION PATIENT WITH SMALL WHITE SECRETIONS NOTED. PATIENT TOLERATED WELL. CHANGED TRUMPET TO LEFT NARE WITH RT AT BEDSIDE. PATIENT TOLERATED WELL.
--- NOTE | 2019-09-07 06:19 | NUR ---
PATIENT REMAINS IN NO ACUTE DISTRESS IN BED. PATIENT DID NOT HAVE ANY SIGNIFICANT CHANGE IN CONDITION DURING SHIFT. ALL NEEDS MET, ALL ORDERS CARRIED OUT. PATIENT TOLERATED DEEP SUCTION WELL. WILL ENDORSE CARE TO AM RN FOR CONTINUITY OF CARE.
[2019-09-07] MEDS: MEROPENEM 500 MG in IV NS 0.9% 100 ML IV SCH ×3 (07:28→23:49)
[2019-09-07] MEDS: ACETYLCYSTEINE 10% SOLN 400 MG/4 ML VIAL NEB SCH ×3 (07:46→23:37)
--- NOTE | 2019-09-07 08:00 | NUR ---
MANAGER MARKET INTELLIGENCE NOTE RECEIVE PATIENT AWAKE A/OX2, NO DISTRESS NOTED, ON 2LPMO2 NC. WITH LEFT NARE TRUMPET NOTED. ON TELE MONITOR SR. GT PATENT, INTACT, IN PLACE, NO RESIDUAL NOTED. F/C PATENT, INTACT, IN PLACE. HOB ELEVATED. SIDE RAILS UP AND LOCKED. BED KEPT AT LOWEST POSITION. CALL LIGHT KEPT WITHIN EASY REACH. WILL CONTINUE TO MONITOR.
[2019-09-07] MEDS: DONEPEZIL 5 MG TABLET PO SCH (08:22)
[2019-09-07] MEDS: LACTOBACILLUS RHAMNOSUS GG 1 EACH CAP.SPRINK PO SCH ×2 (08:22→17:01)
[2019-09-07] MEDS: ACETAMINOPHEN 325 MG TABLET PO PRN ×2 (08:22→19:44)
[2019-09-07] MEDS: TAMSULOSIN 0.4 MG CAP.SR.24H PO SCH (08:22)
[2019-09-07] MEDS: ENOXAPARIN SODIUM 40 MG/0.4 ML DISP.SYRIN SQ SCH (08:23)
[2019-09-07] MEDS: OSMOLITE 1.2 CAL 1,000 ML LIQUID GT PRN (11:00)
--- NOTE | 2019-09-07 11:02 | NUR ---
CALLED RN REGARDING BIOPSY, AND PER STATE GAME PROTECTOR IS ON HOLD, MD ISAAC TALKED TO PATIENT SISTER, AND SISTER WANTS TO PUT THE PATIENT ON CONFORT CARE, FOLLOW UP
--- NOTE | 2019-09-07 15:41 | NUR ---
articulation officer note Dr. Oneal spoke to sister Radha regarding patient status, per sister Radha she would like to maintain full code, does Not want any biopsies to be done.
--- NOTE | 2019-09-07 16:06 | NUR ---
TAFFY CANDY MAKER NOTE CLARIFIED C.DIFF STOOL ORDER WITH DR. ISAAC, PER DR. ISAAC HE WOULD LIKE TO GO AGAINST C.DIFF PROTOCOL AND COLLECT STOOL SPECIMEN.
[2019-09-07 17:33] LABS: OCCULT BLOOD STOOL NEGATIVE (NEGATIVE)
[2019-09-07] MEDS ORDERED: MORPHINE SULFATE INJ 2 MG/ML DISP.SYRIN IM PRN (18:00)
[2019-09-07] MEDS: SCOPOLAMINE HBR 1 EA PATCH.TD72 TD SCH (19:00)
--- NOTE | 2019-09-07 19:00 | NUR ---
RECEIVED PATIENT IN NO ACUTE DISTRESS IN BED. PATIENT IS A/O X 2 WITH PERIODS OF CONFUSION. PATIENT IS ON O2 VIA NC AT 2LPM AND TOLERATING WELL. PATIENT CONTINUES TO HAVE EXCESSIVE SECRETIONS WITH FREQUENT SUCTIONING. PATIENT IS NOT C/O ANY SOB, DIFFICULTY BREATHING OR PAIN AT THIS TIME. PATIENT IS ON TELEMETRY WITH SR WITH BBB ON THE MONITOR. PATIENT HAS PEG TUBE THAT IS CLEAN DRY INTACT AND PATENT WITH OSMOLITE RUNNING AT 65ML/HR AND TOLERATING WELL WITH 0 RESIDUAL. PATIENT HAS F/C THAT IS CLEAN DRY INTACT AND PATENT WITH ANJALI URINE DRAINING. PATIENT HAS BILATERAL FOREARM 20G IV THAT ARE CLEAN DRY INTACT AND PATENT WITH SALINE FLUSH. BED IN LOW LOCK POSITION WITH RAILS UP X 2. CALL LIGHT WITHIN REACH AND ALL SAFETY MEASURES ENSURED AND CARRIED OUT. WILL CONTINUE TO MONITOR PATIENT.
--- NOTE | 2019-09-07 19:47 | NUR ---
ICU CLOSING NOTE NO SIGNIFICANT CHANGE THROUGHOUT THE DAY, FREQUENT SUCTIONING NEEDED. GT PATENT AND INTACT, TOLERATING GTF. ALL DUE MEDS GIVEN. KEPT CLEAN AND DRY. F/C PATENT, INTACT, IN PLACE DRAINING BY GRAVITY. TURNED AND REPOSITIONED Q2 AND PRN. HOB ELEVATED. SIDE RAILS UP AND LOCKED. BED KEPT AT LOWEST POSITION. CALL LIGHT KEPT WITHIN EASY REACH. CAREGIVER AT BEDSIDE. CONTINUITY OF CARE ENDORSED TO PM NURSE.
--- NOTE | 2019-09-07 20:00 | NUR ---
RT DEEP SUCTION PATIENT WITH SMALL WHITE SECRETIONS NOTED. WILL CONTINUE TO MONITOR.
--- NOTE | 2019-09-07 22:00 | NUR ---
DEEP SUCTION PATIENT WITH SMALL AMOUNT OF WHITE SECRETIONS NOTED. WILL CONTINUE TO MONITOR PATIENT
--- NOTE | 2019-09-07 22:11 | NUR ---
PER DR. ISAAC TEST FOR CDIFF. DR. ISAAC AWARE THAT HE IS GOING AGAINST PROTOCOL PER DAY SHIFT ASHTYN RN. SEE NOTE/MISC NOTE.
[2019-09-08] VITALS (21 sets, daily range): BP systolic 103–146; BP diastolic 55–82
--- NOTE | 2019-09-08 | NUR ---
JORDI RT DEEP SUCTION PATIENT WITH MODERATE AMOUNT OF WHITE SECRETIONS NOTED. WILL CONTINUE TO MONITOR.
--- NOTE | 2019-09-08 02:17 | NUR ---
PATIENT HAS NO SECRETIONS NOTED IN THROAT. PATIENT IS ABLE TO VERBALIZE WITHOUT DIFFICULTY AND WITHOUT SOUND OF SECRETIONS IN VOCAL CHORDS. PATIENT IS NOT COUGHING AT THIS TIME. WILL HOLD DEEP SUCTION AND CONTINUE TO MONITOR.
[2019-09-08] MEDS: ALBUTEROL FS 2.5 MG/0.5 ML VIAL.NEB NEB SCH ×6 (03:26→23:27)
--- NOTE | 2019-09-08 04:00 | NUR ---
JORDI RT DEEP SUCTION PATIENT AFTER BREATHING TREATMENT WITH MODERATE AMOUNT OF THIN WHITE SECRETIONS NOTED. PATIENT TOLERATED DEEP SUCTION.
[2019-09-08 04:35] LABS: BASOPHILS # (AUTO) 0.1 /CMM (0.0-0.2); BASOPHILS % (AUTO) 0.3 % (0.0-2.0); EOSINOPHILS % (AUTO) 0.9 % (0.0-6.0); HEMATOCRIT 33 % (39-51); HEMOGLOBIN 10.8 g/dL (13.5-17.5); LYMPHOCYTES # (AUTO) 2.9 /CMM (0.8-4.8); LYMPHOCYTES % (AUTO) 11.6 % (20.0-44.0); MEAN CORPUSCULAR HGB CONC 32 g/dl (31.0-36.0); MEAN CORPUSCULAR VOLUME 86 fL (80-96); NEUTROPHILS # (AUTO) 19.9 /CMM (1.8-8.9); NEUTROPHILS % (AUTO) 79.2 % (43.0-81.0); PLATELET COUNT (AUTO) 499 /CMM (150-450); RED BLOOD CELL COUNT(AUTO) 3.87 MIL/uL (4.5-6.0); WHITE BLOOD COUNT (AUTO) 25.1 K/uL (4.3-11.0)
[2019-09-08 04:49] LABS: CALCIUM, SERUM 8.3 mg/dL (8.5-10.1); CREATININE 0.6 mg/dL (0.6-1.3); POTASSIUM 3.9 mmol/L (3.5-5.1)
--- NOTE | 2019-09-08 06:00 | NUR ---
DEEP SUCTION PATIENT WITH SMALL AMOUNT OF THIN WHITE SECRETIONS NOTED. PATIENT TOLERATED PROCEDURE.
--- NOTE | 2019-09-08 06:12 | NUR ---
PATIENT REMAINS IN NO ACUTE DISTRESS IN BED. PATIENT DID NOT HAVE ANY SIGNIFICANT CHANGE IN CONDITION DURING SHIFT. PATIENT TOLERATED SUCTIONING WELL. PATIENT TOLERATED TUBE FEEDING WELL WITH 0 RESIDUAL. ALL NEEDS MET, ALL ORDERS CARRIED OUT. WILL ENDORSE CARE TO AM RN FOR CONTINUITY OF CARE.
[2019-09-08] MEDS: OSMOLITE 1.2 CAL 1,000 ML LIQUID GT PRN (07:09)
[2019-09-08] MEDS: ACETYLCYSTEINE 10% SOLN 400 MG/4 ML VIAL NEB SCH ×3 (07:39→23:27)
[2019-09-08] MEDS: MEROPENEM 500 MG in IV NS 0.9% 100 ML IV SCH ×3 (07:52→23:51)
[2019-09-08] MEDS: DONEPEZIL 5 MG TABLET PO SCH (08:01)
[2019-09-08] MEDS: TAMSULOSIN 0.4 MG CAP.SR.24H PO SCH (08:01)
[2019-09-08] MEDS: LACTOBACILLUS RHAMNOSUS GG 1 EACH CAP.SPRINK PO SCH ×2 (08:01→16:04)
[2019-09-08] MEDS: ENOXAPARIN SODIUM 40 MG/0.4 ML DISP.SYRIN SQ SCH (08:02)
[2019-09-08 08:06] LABS: IMMUNOGLOBULIN A, SERUM 299 mg/dL (61-437); IMMUNOGLOBULIN G, SERUM 1559 mg/dL (700-1600); IMMUNOGLOBULIN M, SERUM 244 mg/dL (15-143)
--- NOTE | 2019-09-08 08:33 | NUR ---
SPOKE TO CAROLA PETERS REGARDING U/S GUIDED NEEDLE BIOPSY, HE MENTIONED PATIENT REFUSING AT THIS TIME, BUT TO CHECK BACK TOMORROW. PATIENT CURRENTLY ON LOVENOX.
--- NOTE | 2019-09-08 08:46 | NUR ---
RN NOTE 0715: Received patient awake. A/Ox2, noted with confusion, trying to get up at times. On 3LPM of O2 via NC, sat 96%. Noted with crackles, productive cough but unable to expectorate freely. With Scopolamine patch on. Kept HOB upright >40degrees. With GT intact, feeding tolerated well, no residuals noted. With Simon cath intact, noted with hayden colored urine drained to BSD. With PIVs intact. SR 70's on the monitor. On contact iso prec for r/o CDiff, maintained and observed. 0830: S/E by Dr. Oneal, no new order at this time. 0845: No any significant changes noted at this time. Kept clean, warm and dry. Needs attended.
[2019-09-08 11:07] LABS: *SPE A/G RATIO 0.5 (0.7-1.7); *SPE ALBUMIN 2.1 g/dL (2.9-4.4); *SPE ALPHA-1-GLOBULIN 0.7 g/dL (0.0-0.4); *SPE GLOBULIN, TOTAL 4.3 g/dL (2.2-3.9); *SPE M-SPIKE Not Observed g/dL (Not Observed); *SPEGAMMA GLOBULIN 1.6 g/dL (0.4-1.8)
--- NOTE | 2019-09-08 14:58 | NUR ---
RN NOTE S/E by Dr. Jacinto, with order to may transfer to med surg. Nguyễn caregiver aware. CN aware.
--- NOTE | 2019-09-08 16:45 | NUR ---
RN NOTE No any significant changes noted. VSS, on 2 LPM O2 via NC. Rendered NT suction via left nares trumpet, noted with moderate amount of white thick secretions, with minimal blood. Transferred via bed using ACLS protocol to room 308-2. Endorsed care to Beth SRIVASTAVA. GT feeding intact, feeding tolerated. PIVs intact. Kept clean, warm and dry. Needs attended.
[2019-09-08] MEDS: JEVITY 1.2 CAL 1,000 ML BOTTLE GT PRN (16:50)
--- NOTE | 2019-09-08 17:06 | NUR ---
MS RN NOTES RECEIVED PT FROM ICU VIA BED. ARRIVED IN THE ROOM AT 1640 WITH 1 NURSE PRESENT. PT A/O X1-2, VERBAL. PT ON SUPPLEMENTARY OXYGEN AT 2L VIA NC WITH NO ACUTE RESPIRATORY DISTRESS NOTED. PT HAS LEFT NARE TRUMPET PRESENT FOR SUCTIONING, PER ICU NURSE HE JUST SUCTIONED AND GOT WHITE THICK SECRETION WITH PINK TINGED. PT DENIES ANY PAIN OR DISCOMFORT AT THE MOMENT. PT ON GT FEEDING TO CHANGED FROM OSMOLITE 1.2 TO JEVITY 1.2 AT 65ML/HR. GT RESIDUAL 5ML PRESENT. FC IN PLACE WITH ANJALI COLORED URINE IN THE BAG. PT KEPT COMFORTABLE. GOB ELEVATED. VS TAKEN AND RECORDED. PT'S BED IN LOWEST, LOCKED POSITION WITH SRX3. WILL CONTINUE PLAN OF CARE.
--- NOTE | 2019-09-08 17:11 | NUR ---
MS RN NOTES PIV TO LFA G20 AND RFA G20, FLUSHED WITH NS, INTACT AND OPERATIONAL.
--- NOTE | 2019-09-08 19:30 | NUR ---
MS RN NOTES CLARIFIED ORDER PO ACETYLCYSTINE FOR CT ABD/PELVIS WITH CONTRAST WITH DR. NAVAS AWAITING FOR RESPONSE. ENDORSED TO HUMAN RESOURCES CONSULTANT NURSE ADRIAN FOR BRINA.
--- NOTE | 2019-09-08 19:36 | NUR ---
MS RN CLOSING NOTES PT A/O X2-3, VERBAL. PT ON SUPPLEMENTARY OXYGEN AT 2L VIA NC WITH NO ACUTE RESPIRATORY DISTRESS NOTED. PT HAS LEFT NARE TRUMPET PRESENT FOR SUCTIONING. PT DENIES ANY PAIN OR DISCOMFORT AT THE MOMENT. PT ON GT FEEDING JEVITY 1.2 AT 65ML/HR. FC IN PLACE WITH ANJALI COLORED URINE IN THE BAG, OUTPUT OF 150ML. PT KEPT COMFORTABLE. ALL NEEDS AND CARE ATTENDED. HOB ELEVATED. TURN AND REPOSITIONED Q2. PT'S BED IN LOWEST, LOCKED POSITION WITH SRX3. ENDORSED TO INCOMING NIGHT NURSE FOR BRINA.
--- NOTE | 2019-09-08 20:00 | NUR ---
MS RN NOTES RECEIVED PATIENT ASLEEP IN BED WITH NO DISTRESS NOTED. CALL LIGHT WITHIN REACH. PERIPHERAL LINE INTACT AND PATENT. FC INTACT AND PATENT. GTF RUNNING AT 65ML/HR AND TOLERATING WELL. LEFT NARE TRUMPET INTACT. SPOKE WITH DR. NAVAS AND RECEIVED OK ORDER TO ADMINISTER MUCOMYST PO VIA GT. CONSENTS FOR CT ABD/PELVIS WITH CONTRAST AND US NEEDLE GUIDED BIOPSY OBTAINED FROM SISTER BRANDEN AND PLACED IN CHART. BED IN LOW LOCK SETTING. ALL BELONGINGS KEPT NEAR BEDSIDE. WILL CONTINUE TO MONITOR.
[2019-09-08] MEDS: METRONIDAZOLE 500 MG TABLET PO SCH (20:31)
[2019-09-08] MEDS: ACETYLCYSTEINE 10% 3,000 MG/30 ML VIAL PO SCH (20:31)
[2019-09-09] MEDS: ALBUTEROL FS 2.5 MG/0.5 ML VIAL.NEB NEB SCH ×6 (03:37→23:15)
[2019-09-09] MEDS: METRONIDAZOLE 500 MG TABLET PO SCH ×3 (05:00→20:19)
--- NOTE | 2019-09-09 06:26 | NUR ---
MS RN NOTES PATIENT ASLEEP IN BED WITH NO DISTRESS NOTED. CALL LIGHT WITHIN REACH. CAREGIVER AT BEDSIDE. ALL DUE MEDS GIVEN ORDERED WITH NO ASE NOTED. PERIPHERAL LINE AND FC INTACT AND PATENT. NO C/O PAIN OR DISCOMFORT. PATIENT PULLED OUT TRUMPET, RT AT BEDSIDE. PER RT, PATIENT HAD ZERO TO MINIMAL SECRETIONS THROUGHOUT SHIFT WITH O2 SAT 96-97%. PATIENT REMAINS IN STABLE CONDITION. NPO STATUS INITIATED AT MIDNIGHT. ALL BELONGINGS KEPT NEAR BEDSIDE. WILL ENDORSE TO ONCOMING SHIFT.
[2019-09-09 06:30] LABS: BASOPHILS # (AUTO) 0.1 /CMM (0.0-0.2); BASOPHILS % (AUTO) 0.4 % (0.0-2.0); EOSINOPHILS % (AUTO) 1.1 % (0.0-6.0); HEMATOCRIT 32 % (39-51); HEMOGLOBIN 10.3 g/dL (13.5-17.5); MEAN CORPUSCULAR HGB CONC 32 g/dl (31.0-36.0); MEAN CORPUSCULAR VOLUME 85 fL (80-96); MONOCYTES # (AUTO) 2.3 /CMM (0.1-1.30); NEUTROPHILS # (AUTO) 19.7 /CMM (1.8-8.9); NEUTROPHILS % (AUTO) 77.5 % (43.0-81.0); PLATELET COUNT (AUTO) 520 /CMM (150-450); RED BLOOD CELL COUNT(AUTO) 3.79 MIL/uL (4.5-6.0); WHITE BLOOD COUNT (AUTO) 25.4 K/uL (4.3-11.0)
[2019-09-09 06:35] LABS: CALCIUM, SERUM 8.4 mg/dL (8.5-10.1); CREATININE 0.6 mg/dL (0.6-1.3); POTASSIUM 3.8 mmol/L (3.5-5.1)
--- NOTE | 2019-09-09 07:35 | NUR ---
MS RN OPENING NOTES RECEIVED PT A/O X2-3, VERBAL. PT ON SUPPLEMENTARY OXYGEN AT 2L VIA NC WITH NO ACUTE RESPIRATORY DISTRESS NOTED. CAREGIVER/OTTIS PRESENT AT BEDSIDE. PER NIGHT NURSE PT'S LEFT NARE TRUMPET WAS PULLED OUT BY PT AROUND 5AM WHILE RT IS PRESENT AT BEDSIDE AND PER NIGHT RT "PT SATURATION IS BETTER WITHOUT IT AND HE'LL NOTIFY MD". RN TO F/U WITH AM HOSPITALIST REGARDING THE SITUATION. NIGHT RT LEFT THE TRUMPET AT BEDSIDE. PT DENIES ANY PAIN OR DISCOMFORT AT THE MOMENT. PT'S GT FEEDING JEVITY 1.2 ON HOLD FOR TODAY'S PROCEDURE. FC IN PLACE WITH ANJALI COLORED URINE IN THE BAG. PT KEPT COMFORTABLE. HOB ELEVATED. PT'S BED IN LOWEST, LOCKED POSITION WITH SRX3. WILL CONTINUE PLAN OF CARE.
--- NOTE | 2019-09-09 07:47 | NUR ---
MS RN NOTES AM RT IN THE UNIT MADE AWARE REGARDING PT'S LEFT NARE TRUMPET GOT PULLED OUT. RT TO ASSESS PT AND F/U WITH MD IF DEEP SUCTION STILL NEEDED.
[2019-09-09] MEDS: ACETYLCYSTEINE 10% SOLN 400 MG/4 ML VIAL NEB SCH ×3 (07:53→23:15)
[2019-09-09 08:00] VITALS: BP 154/76
[2019-09-09] MEDS: MEROPENEM 500 MG in IV NS 0.9% 100 ML IV SCH ×3 (08:07→23:13)
[2019-09-09] MEDS: LACTOBACILLUS RHAMNOSUS GG 1 EACH CAP.SPRINK PO SCH ×2 (08:14→16:24)
[2019-09-09] MEDS: TAMSULOSIN 0.4 MG CAP.SR.24H PO SCH (08:14)
[2019-09-09] MEDS: DONEPEZIL 5 MG TABLET PO SCH (08:14)
[2019-09-09] MEDS: ENOXAPARIN SODIUM 40 MG/0.4 ML DISP.SYRIN SQ SCH (08:15)
[2019-09-09] MEDS: ACETYLCYSTEINE 10% 3,000 MG/30 ML VIAL PO SCH ×2 (08:15→16:27)
--- NOTE | 2019-09-09 11:30 | NUR ---
MS RN NOTES HOSPITALIST/PV IN THE UNIT MADE AWARE REGARDING LEFT NARE TRUMPET FOR SUCTION WAS PULLED OUT THIS MORNING. HOSPITALIST STATED IT'S OKAY AND JUST MONITOR PT FOR NOW AND NOTIFY HOSPITALIST/PV FOR ANY SIGNIFICANT CHANGES. KATHERINE/MARÍA ELENA/VICKY MADE AWARE WELL.
--- NOTE | 2019-09-09 15:45 | NUR ---
MS RN NOTES CALLED ULTRASOUND DEPT AND LEFT A MESSAGE REGARDING PT'S SCHEDULED US GUIDED NEEDLE BIOPSY. AWAITING FOR CALL BACK. CN/VICKY MADE AWARE.
[2019-09-09 16:00] VITALS: BP 149/69
--- NOTE | 2019-09-09 16:06 | NUR ---
INFORMED RN THAT THE PROCEDURE WILL BE DONE ON WEDNESDAY, NO RADIOLOGIST OR PATHOLOGIST ON S
--- NOTE | 2019-09-09 16:10 | NUR ---
MS RN NOTES RECEIVED CALL BACK FROM US DEPT. PROCEDURE WONT BE DONE TODAY AND MOST LIKELY WILL BE DONE ON WEDNESDAY. KATHERINE/MARÍA ELENA/VICKY MADE AWARE. /LAURA MADE AWARE WELL. FEEDING TO RESUME. CAREGIVER/OTTIS AND FAMILY/SISTER/BRANDEN PRESENT AT BEDSIDE AND MADE AWARE OF PLAN.
[2019-09-09] MEDS: JEVITY 1.2 CAL 1,000 ML BOTTLE GT PRN (16:22)
--- NOTE | 2019-09-09 18:50 | NUR ---
MS RN CLOSING NOTES PT A/O X2, AWAKE, VERBAL. PT ON SUPPLEMENTARY OXYGEN AT 2L VIA NC WITH NO ACUTE RESPIRATORY DISTRESS NOTED; ON BREATHING TREATMENT ATC. CAREGIVER/OTTIS PRESENT AT BEDSIDE. PT DENIES ANY PAIN OR DISCOMFORT AT THE MOMENT. IV TO LFA G20, FLUSHED WITH NS, INTACT AND OPERATIONAL. PT ON GT FEEDING JEVITY 1.2 AT 65ML/HR, FEEDING TOLERATED. FC IN PLACE WITH ANJALI COLORED URINE IN THE BAG. ALL NEEDS AND CARE PROVIDED AND ATTENDED. PT KEPT COMFORTABLE. HOB ELEVATED. PT'S BED IN LOWEST, LOCKED POSITION WITH SRX3. WILL ENDORSE TO INCOMING NIGHT NURSE FOR BRINA.
--- NOTE | 2019-09-09 19:30 | NUR ---
MS RN OPENING NOTE RECEIVED PATIENT IN BED, A/O X2 - 3. ON OXYGEN AT 2L/MIN VIA NASAL CANNULA. RESPIRATIONS ARE EVEN AND UNLABORED. NO S/S SOB. DENIES PAIN AT THIS TIME. IN NO APPARENT DISTRESS. IV ACCESS IN LFA #20 PATENT AND SALINE LOCKED. GTUBE IS PRESENT, ASPIRATED, 25ML RESIDUAL, POSITIVE PLACEMENT, FLUSHED WITH 30ML NO RESISTANCE. GTUBE FEEDING RUNNING JEVITY 1.2 @65ML/HR . KO CATHETER IS PRESENT, DRAINING TO GRAVITY, URINE IS ANJALI.BED IS LOW AND LOCKED , SIDE RAILS UP X3, HOB ELEVATED 50 DEGREES, BED ALARM ON. CALL LIGHT WITHIN REACH. LEAD TELLER AT BEDSIDE. WILL CONTINUE TO MONITOR.
[2019-09-09 20:00] VITALS: BP 122/61
[2019-09-10] MEDS: ALBUTEROL FS 2.5 MG/0.5 ML VIAL.NEB NEB SCH ×6 (03:21→23:25)
--- NOTE | 2019-09-10 03:30 | NUR ---
MS RN NOTE STOPPED GTUBE FEEDING D/T CAREGIVER AT BEDSIDE WANTS HOB FLAT.
[2019-09-10] MEDS: METRONIDAZOLE 500 MG TABLET PO SCH ×2 (04:09→14:26)
--- NOTE | 2019-09-10 06:22 | NUR ---
MS RN CLOSING NOTE PATIENT IN BED, A/O X2 - 3, EPISODES OF CONFUSION. REMAINS ON OXYGEN AT 2L/MIN VIA NASAL CANNULA. RESPIRATIONS ARE EVEN AND UNLABORED. NO SOB NOTED. NO C/O PAIN. NO DISTRESS NOTED. IV ACCESS REMAINS IN LFA #20 PATENT AND SALINE LOCKED. GTUBE REMAINS PRESENT, DRESSING CHANGED. GTUBE FEEDING STOPPED D/T NEEDS TO BE HELD FOR [address] OF ABD/PELVIS . KO CATHETER REMAINS PRESENT , DRAINING TO GRAVITY, URINE IS ANJALI.BED IS LOW AND LOCKED , SIDE RAILS UP X3, HOB ELEVATED 50 DEGREES, BED ALARM ON. CALL LIGHT WITHIN REACH. TURRET PUNCH PRESS OPERATOR AT BEDSIDE. WILL ENDORSE TO NEXT SHIFT FOR BRINA.
[2019-09-10 06:25] LABS: BASOPHILS # (AUTO) 0.2 /CMM (0.0-0.2); BASOPHILS % (AUTO) 0.7 % (0.0-2.0); EOSINOPHILS % (AUTO) 2.3 % (0.0-6.0); HEMATOCRIT 31 % (39-51); HEMOGLOBIN 10.2 g/dL (13.5-17.5); LYMPHOCYTES # (AUTO) 3.3 /CMM (0.8-4.8); MEAN CORPUSCULAR HGB CONC 33 g/dl (31.0-36.0); MEAN CORPUSCULAR VOLUME 85 fL (80-96); MONOCYTES # (AUTO) 2.1 /CMM (0.1-1.30); MONOCYTES % (AUTO) 9.1 % (2.0-12.0); NEUTROPHILS # (AUTO) 17.4 /CMM (1.8-8.9); NEUTROPHILS % (AUTO) 73.9 % (43.0-81.0); PLATELET COUNT (AUTO) 540 /CMM (150-450); RED BLOOD CELL COUNT(AUTO) 3.68 MIL/uL (4.5-6.0); WHITE BLOOD COUNT (AUTO) 23.6 K/uL (4.3-11.0)
[2019-09-10 06:38] LABS: CALCIUM, SERUM 8.4 mg/dL (8.5-10.1); CREATININE 0.6 mg/dL (0.6-1.3); POTASSIUM 3.9 mmol/L (3.5-5.1)
--- NOTE | 2019-09-10 07:10 | NUR ---
MS RN OPENING NOTES RECEIVED PT A/O X2-3, VERBAL. PT ON SUPPLEMENTARY OXYGEN AT 2L VIA NC WITH NO ACUTE RESPIRATORY DISTRESS NOTED. CAREGIVER/OTTIS PRESENT AT BEDSIDE. PT DENIES ANY PAIN OR DISCOMFORT AT THE MOMENT. PT'S GT FEEDING JEVITY 1.2 [address] FOR TODAY'S CT OF ABD AND PELVIS. FC IN PLACE WITH CLEAR YELLOW URINE IN THE BAG. PT KEPT COMFORTABLE. HOB ELEVATED. PT'S BED IN LOWEST, LOCKED POSITION WITH SRX3. WILL CONTINUE PLAN OF CARE.
[2019-09-10] MEDS: ACETYLCYSTEINE 10% SOLN 400 MG/4 ML VIAL NEB SCH ×3 (07:46→23:25)
[2019-09-10 08:00] VITALS: BP 132/79
[2019-09-10] MEDS: MEROPENEM 500 MG in IV NS 0.9% 100 ML IV SCH ×3 (08:02→23:58)
[2019-09-10] MEDS: ENOXAPARIN SODIUM 40 MG/0.4 ML DISP.SYRIN SQ SCH (09:00)
[2019-09-10] MEDS: ACETYLCYSTEINE 10% 3,000 MG/30 ML VIAL PO SCH ×2 (09:00→16:08)
[2019-09-10] MEDS: TAMSULOSIN 0.4 MG CAP.SR.24H PO SCH (09:00)
[2019-09-10] MEDS: LACTOBACILLUS RHAMNOSUS GG 1 EACH CAP.SPRINK PO SCH ×2 (09:00→16:08)
[2019-09-10] MEDS: DONEPEZIL 5 MG TABLET PO SCH (09:00)
--- NOTE | 2019-09-10 10:15 | NUR ---
MS RN NOTES CALLED AND SPOKE TO CT DEPT REGARDING ST ABD/PELVIS WITH CONTRAST WILL BE DONE TODAY AROUND 1130-12 PM. PT STILL NPO SINCE 5AM. HOSPITALIST PV AND DR NAVAS AWARE OF IT.
--- NOTE | 2019-09-10 10:35 | NUR ---
INFORMED RN MAY THAT US NEEDLE GUIDED BIOPSY WILL BE DONE TOMORROW PER RADIOLOGIST DR. BUSTAMANTE
--- NOTE | 2019-09-10 10:36 | NUR ---
MS RN NOTES RECEIVED CALL FROM ULTRASOUND DEPT AND STATED US GUIDED NEEDLE BIOPY OF THYROID WILL BE DONE TOMORROW MORNING. CAREGIVER/OTTIS AT BEDSIDE. MADE AWARE AND CN/VICKY/MARÍA ELENA MADE AWARE WELL.
[2019-09-10] MEDS ORDERED: CT SWABBABLE VALVE TRANS SET 1 EA INFUS.SET MC ONE (11:46)
[2019-09-10] MEDS ORDERED: IV NS 0.9% 250 ML IV ONE (11:46)
[2019-09-10] MEDS ORDERED: IOHEXOL-300 100 ML VIAL IV ONE (11:47)
--- NOTE | 2019-09-10 12:17 | NUR ---
MS RN NOTES PT JUST CAME BACK FROM CT. RESUMED GT FEEDING ORDERED. AWAITING FOR PT TO COME AND EVAL PT AND OOB.
[2019-09-10] MEDS: JEVITY 1.2 CAL 1,000 ML BOTTLE GT PRN (15:37)
[2019-09-10 16:00] VITALS: BP 140/70
[2019-09-10] MEDS: SCOPOLAMINE HBR 1 EA PATCH.TD72 TD SCH (17:06)
--- NOTE | 2019-09-10 18:40 | NUR ---
MS RN CLOSING NOTES PT A/O X2 WITH EPISODES OF CONFUSION, INTERMITTENTLY DOZING OFF, EASILY AROUSED,VERBAL. PT ON SUPPLEMENTARY OXYGEN AT 2L VIA NC WITH NO ACUTE RESPIRATORY DISTRESS NOTED. PT DENIES ANY PAIN OR DISCOMFORT AT THE MOMENT. PIV TO LFA G20 SL, INTACT AND FLUID INFUSING WELL. ON GOING GT FEEDING JEVITY 1.2 AT 65ML/HR, TOLERATED FEEDING. FC IN PLACE WITH ANJALI-COLORED URINE IN THE BAG. PT KEPT COMFORTABLE. ALL NEEDS AND CARE ATTENDED AND PROVIDED. HOB ELEVATED. PT'S BED IN LOWEST, LOCKED POSITION WITH SRX3. WILL ENDORSE TO INCOMING NIGHTNURSE FOR BRINA.
--- NOTE | 2019-09-10 19:10 | NUR ---
MS RN NOTE RECEIVED PT IN STABLE CONDITION A/O X2-3, NO SIGNS OF SOB OR DISTRESS, NO INDICATION OF PAIN OR N/V. NOTED WITH KO CATH WITH ADEQUATE ANJALI URINE DRAINING. IV IN LFA IN PLACE S/L. NOTED WITH GTUBE FEEDING INFUSING, TOLERATING WELL, WITH MINIMAL RESIDUAL. ALL CURRENT NEEDS ATTENDED TO. BED LOW, LOCKED, UPPER RAILS UP, AND CALL LIGHT WITHIN REACH. WILL CONT. TO MONITOR. PT TO BE NPO PER DR. NAVAS FOR AM PROCEDURE.
[2019-09-10 20:06] VITALS: BP 139/81
[2019-09-11] MEDS: ALBUTEROL FS 2.5 MG/0.5 ML VIAL.NEB NEB SCH ×6 (03:44→23:56)
--- NOTE | 2019-09-11 06:29 | NUR ---
MS RN NOTE PT REMAINS IN STABLE CONDITION A/O X2-3 WITH SITTER AT BEDSIDE, NO SIGNS OF SOB OR DISTRESS, NO INDICATION OF PAIN OR N/V. NOTED WITH KO CATH WITH 350 ML OUTPUT OF ANJALI URINE DRAINED. IV IN LFA IN PLACE S/L. NOTED WITH GTUBE, CURRENTLY NPO PER DR. NAVAS. ALL CURRENT NEEDS ATTENDED TO. BED LOW, LOCKED, UPPER RAILS UP, AND CALL LIGHT WITHIN REACH. WILL CONT. TO MONITOR AND ENDORSE TO NEXT SHIFT FOR BRINA.
[2019-09-11 07:19] LABS: CALCIUM, SERUM 8.3 mg/dL (8.5-10.1); CREATININE 0.6 mg/dL (0.6-1.3); POTASSIUM 3.7 mmol/L (3.5-5.1)
--- NOTE | 2019-09-11 07:36 | NUR ---
MS RN OPENING NOTES RECEIVED PT AWAKE IN BED IN NO ACUTE SIGNS OF DISTRESS. HOB ELEVATED. A/O X2-3. VERBALLY RESPONSIVE, DENIES PAIN OR ANY DISCOMFORTS AT THIS TIME. ON SUPPLEMENTAL O2 AT 2L VIA N/C, TOLERATING WELL WITH NO SOB NOTED. G-TUBE IN PLACE AND PATENT. RECEIVED REPORT THAT PT IS FOR US NEEDLE GUIDED BIOPSY OF THYROID NODULE AND LEFT SUPRACLAVICULAR LYMPHADENOPATHY. GT FEEDING OF JEVITY 1.[address] NAVAS. KO IN PLACE AND PATENT WITH CLEAR YELLOW URINE NOTED IN THE URINARY BAG. SAFETY MEASURES IN PLACE. BED IN LOWEST, LOCKED POSITION WITH SR UP X3. WILL CONTINUE TO MONITOR PT ACCORDINGLY.
[2019-09-11 08:00] VITALS: BP 148/83
[2019-09-11] MEDS: ACETYLCYSTEINE 10% SOLN 400 MG/4 ML VIAL NEB SCH ×3 (08:16→23:56)
[2019-09-11] MEDS: DONEPEZIL 5 MG TABLET PO SCH (08:37)
[2019-09-11] MEDS: LACTOBACILLUS RHAMNOSUS GG 1 EACH CAP.SPRINK PO SCH ×2 (08:37→16:27)
[2019-09-11] MEDS: TAMSULOSIN 0.4 MG CAP.SR.24H PO SCH (08:37)
[2019-09-11] MEDS: ENOXAPARIN SODIUM 40 MG/0.4 ML DISP.SYRIN SQ SCH (08:38)
[2019-09-11] MEDS: ACETYLCYSTEINE 10% 3,000 MG/30 ML VIAL PO SCH ×2 (08:39→16:42)
--- NOTE | 2019-09-11 09:35 | NUR ---
WOUND CARE CONSULT: PT PRESENTS WITH RASH TO BACK AND BONY SACRAL AREA WITH BLANCHABLE REDNESS. DEFER TO MD FOR BACK RASH, UNKNOWN ETIOLOGY. RECOMMENDATIONS MADE FOR SKIN PROTECTION. DISCUSSED WITH NURSING STAFF. LOW AIRLOSS BED TO BE PLACED WHEN AVAILABLE ([employer]EL ISOFLEX). WILL SEE PRN. MD IN AGREEMENT WITH PLAN OF CARE. CURRENT JOSE ALBERTO SCORE IS 15. Addendum: 09/11/19 at 0937 by SUKUMAR GUILLAUME WNDNU Amended: Links added.
--- NOTE | 2019-09-11 10:51 | NUR ---
CALLED PATHOLOGY AT 9.50 AM, INFORMED TECH REGARDING BIOPSY, AT 1100 AM, STILL NO ANSWER FROM MD PATHOLOGIST , TECH WILL FOLLOW UP WITH PATHOLOGIST WHEN AVAILABLE
--- NOTE | 2019-09-11 12:40 | NUR ---
RN NOTES PT WHEELED DOWN VIA GURNEY TO RADIOLOGY FOR FINE NEEDLE US GUIDED BIOPSY.
[2019-09-11 14:00] VITALS: BP 154/75
--- NOTE | 2019-09-11 14:04 | NUR ---
RN NOTES PATIENT RETURNED TO UNIT A DONTAE S/P BIOPSY @ LEFT SIDE OF NECK WITH BAND AID IN PLACED WITH NO ACTIVE BLEEDING NOTED. PT IS AWAKE, A/O X2-3 AND VERBALLY RESPONSIVE. V/S CHECKED: BP 154/75, P 85, R 20 AND T 98%. WILL CONTINUE TO MONITOR.
[2019-09-11 14:30] VITALS: BP 154/75
--- NOTE | 2019-09-11 15:11 | NUR ---
RN NOTES INFORMED DR ROBERTS REGARDING PT HAVING REDDISH RASHES ON HIS BACK WITH ORDER TO GIVE BENADRYL 25MG INJ X1 DOSE. WILL CARRY OUT ORDER.
[2019-09-11] MEDS ORDERED: diphenhydrAMINE HCL 50 MG/ML VIAL IV ONE (15:30)
[2019-09-11 16:00] VITALS: BP 138/76
[2019-09-11] MEDS: JEVITY 1.2 CAL 1,000 ML BOTTLE GT PRN (16:25)
--- NOTE | 2019-09-11 18:54 | NUR ---
MS RN CLOSING NOTES PT IN BED AWAKE AND LYING AT MODERATE HIGH BACKREST POSITION. A/O X2-3. VERBALLY RESPONSIVE WITH EPISODES OF CONFUSION AND FORGETFULNESS NOTE. MAINTAINED ON SUPPLEMENTAL O2 AT 2LPM VIA N/C, TOLERATING WELL WITH NO SOB NOTED. G-TUBE IN PLACE AND PATENT, FEEDING OF JEVITY AT 1.2 IN PROGRESS AND TOLERATING WELL. ASPIRATION PRECAUTIONS MAINTAINED. KO IN PLACE AND PATENT WITH CLEAR YELLOW URINE NOTED IN THE URINARY BAG, KO CARE DONE. PT TURNED AND REPOSITIONED Q 2HRS AND PRN. ALL NEEDS AND CARE PROVIDED WELL. SAFETY MEASURES IN PLACE. BED IN LOWEST, LOCKED POSITION WITH SR UP X3. WILL ENDORSE TO POOL TABLE MECHANIC NURSE FOR BRINA..
--- NOTE | 2019-09-11 19:45 | NUR ---
MS RN NOTES: PATIENT SLEEPING IN BED. NO ACUTE DISTRESS NOTED. BREATHING EVEN AND UNLABORED. NO SOB NOTED. IV ACCESS ON LEFT FOREARM #20G SL INTACT, AND PATENT. ON JEVITY 1.2 AT 65ML/HR. HOB ELEVATED. SAFETY MEASURES KEPT IN PLACE. BED IS IN LOW, LOCKED POSITION, SIDE RAILS UP X2. KO CATHETER IN PLACE AND DRAINING CLEAR YELLOW URINE. CALL LIGHT WITHIN REACH, WILL CONTINUE TO MONITOR.
[2019-09-11 20:00] VITALS: BP 142/73
--- NOTE | 2019-09-12 03:00 | NUR ---
MS RN NOTES: RECEIVED CALL FROM [facility] TRANSFER HOLDEN REGARDING PATIENTS TRANSFER FOR POEM PROCEDURE. NO BEDS STILL AVAILABLE AT THIS TIME.
[2019-09-12] MEDS: ALBUTEROL FS 2.5 MG/0.5 ML VIAL.NEB NEB SCH ×6 (03:58→23:38)
[2019-09-12 06:31] LABS: BASOPHILS # (AUTO) 0.1 /CMM (0.0-0.2); BASOPHILS % (AUTO) 0.5 % (0.0-2.0); HEMATOCRIT 33 % (39-51); HEMOGLOBIN 10.5 g/dL (13.5-17.5); LYMPHOCYTES # (AUTO) 3.4 /CMM (0.8-4.8); MEAN CORPUSCULAR HGB CONC 32 g/dl (31.0-36.0); MEAN CORPUSCULAR VOLUME 85 fL (80-96); MONOCYTES % (AUTO) 7.6 % (2.0-12.0); NEUTROPHILS # (AUTO) 20.4 /CMM (1.8-8.9); NEUTROPHILS % (AUTO) 77.9 % (43.0-81.0); PLATELET COUNT (AUTO) 601 /CMM (150-450); RED BLOOD CELL COUNT(AUTO) 3.86 MIL/uL (4.5-6.0); WHITE BLOOD COUNT (AUTO) 26.1 K/uL (4.3-11.0)
--- NOTE | 2019-09-12 06:44 | NUR ---
MS RN CLOSING NOTES: PATIENT SLEEPING IN BED. NO CHANGES IN CONDITION. NO ACUTE DISTRESS NOTED. BREATHING EVEN AND UNLABORED. NO SOB NOTED. IV ACCESS ON LEFT FOREARM #20G SL INTACT, AND PATENT. ON JEVITY 1.2 AT 65ML/HR. HOB ELEVATED. SAFETY MEASURES KEPT IN PLACE. BED IS IN LOW, LOCKED POSITION, SIDE RAILS UP X2. KO CATHETER IN PLACE AND DRAINED 450 ML OF CLEAR YELLOW URINE. CALL LIGHT WITHIN REACH, WILL ENDORSE TO DAY SHIFT FOR BRINA.
[2019-09-12 06:48] LABS: CALCIUM, SERUM 8.4 mg/dL (8.5-10.1); CREATININE 0.6 mg/dL (0.6-1.3); POTASSIUM 3.8 mmol/L (3.5-5.1)
--- NOTE | 2019-09-12 07:30 | NUR ---
RN OPENING NOTES PATIENT IN BED RESTING. HOB ELEVATED. A/O X2-3. VERBALLY RESPONSIVE WITH EPISODES OF CONFUSION AND FORGETFULNESS NOTE. MAINTAINED ON SUPPLEMENTAL O2 AT 2LPM VIA N/C, TOLERATING WELL WITH NO SOB NOTED. NOT IN NAY FORM OF DISTRESS. G-TUBE IN PLACE AND PATENT, FEEDING OF JEVITY AT 1.2 AT 65ML/HR. ASPIRATION PRECAUTIONS MAINTAINED. KO IN PLACE AND PATENT WITH CLEAR YELLOW URINE NOTED IN THE URINARY BAG. WILL TURN AND REPOSITION Q 2HRS AND PRN. SAFETY MEASURES IN PLACE. BED IN LOWEST, LOCKED POSITION WITH SR UP X3. CALL LIGHT IN REACH. WILL CONTINUE TO MONITOR ACCORDINGLY
[2019-09-12] MEDS: ACETYLCYSTEINE 10% SOLN 400 MG/4 ML VIAL NEB SCH ×3 (07:41→23:38)
[2019-09-12 08:00] VITALS: BP 151/72
[2019-09-12] MEDS: DONEPEZIL 5 MG TABLET PO SCH (08:12)
[2019-09-12] MEDS: LACTOBACILLUS RHAMNOSUS GG 1 EACH CAP.SPRINK PO SCH ×2 (08:12→16:39)
[2019-09-12] MEDS: TAMSULOSIN 0.4 MG CAP.SR.24H PO SCH (08:12)
[2019-09-12] MEDS: ENOXAPARIN SODIUM 40 MG/0.4 ML DISP.SYRIN SQ SCH (08:22)
[2019-09-12] MEDS: ACETYLCYSTEINE 10% 3,000 MG/30 ML VIAL PO SCH ×2 (09:58→16:39)
[2019-09-12 16:00] VITALS: BP 126/67
--- NOTE | 2019-09-12 19:15 | NUR ---
RN CLOSING NOTES PATIENT IN STABLE CONDITION. ALL NEEDS ATTENDED AND PROVIDED. ALL DUE MEDICATIONS ADMINISTERED ORDERED.CAREGIVER AT BEDSIDE. TURNED AND REPSOTION PATIENT EVERY 2 HRS NEEDED. KEPT PATIENT SAFE AND COMFORTABLE. BED IN LOW/LOCKED POSITION, SIDERAILS UPX2, CALL LIGHT IN REACH. ENDORSED TO NIGHT RN FOR BRINA.
[2019-09-12 20:00] VITALS: BP 135/62
--- NOTE | 2019-09-12 21:14 | NUR ---
MS RN NOTES RECEIVED PATIENT AWAKE IN BED WITH NO DISTRESS NOTED. CALL LIGHT WITHIN REACH. NO C/O PAIN OR DISCOMFORT. CAREGIVER AT BEDSIDE. SITTER AT BEDSIDE. NO C/O PAIN OR DISCOMFORT. PERIPHERAL LINE INTACT AND PATENT. ROOM FREE OF CLUTTER AND BELONGINGS KEPT NEAR BEDSIDE. BED IN LOW LOCK SETTING. WILL CONTINUE TO MONITOR.
[2019-09-13] MEDS: ALBUTEROL FS 2.5 MG/0.5 ML VIAL.NEB NEB SCH ×4 (04:10→15:48)
[2019-09-13] MEDS ORDERED: IV D5/0.45 NACL 1,000 ML IV PRN (05:30)
--- NOTE | 2019-09-13 06:19 | NUR ---
MS RN NOTES PATIENT ASLEEP IN BED WITH NO DISTRESS NOTED. CALL LIGHT WITHIN REACH. SITTER AT BEDSIDE. PERIPHERAL LINE INTACT AND PATENT. ALL DUE MEDS GIVEN ORDERED. GTF HELD D/T SCHEDULED US GUIDED THYROID BIOPSY. ORDER OBTAINED FOR IVF D5 11/02 NS @ 75ML/HR. FC INTACT AND PATIENT. BED IN LOW LOCK SETTING. ALL BELONGINGS KEPT NEAR BEDSIDE. WILL CONTINUE TO MONITOR.
[2019-09-13 07:10] LABS: BASOPHILS # (AUTO) 0.1 /CMM (0.0-0.2); BASOPHILS % (AUTO) 0.3 % (0.0-2.0); EOSINOPHILS % (AUTO) 0.7 % (0.0-6.0); HEMATOCRIT 32 % (39-51); HEMOGLOBIN 10.1 g/dL (13.5-17.5); LYMPHOCYTES # (AUTO) 2.9 /CMM (0.8-4.8); LYMPHOCYTES % (AUTO) 9.7 % (20.0-44.0); MEAN CORPUSCULAR HGB CONC 32 g/dl (31.0-36.0); MEAN CORPUSCULAR VOLUME 85 fL (80-96); MONOCYTES % (AUTO) 6.6 % (2.0-12.0); NEUTROPHILS # (AUTO) 25.1 /CMM (1.8-8.9); NEUTROPHILS % (AUTO) 82.7 % (43.0-81.0); PLATELET COUNT (AUTO) 564 /CMM (150-450); RED BLOOD CELL COUNT(AUTO) 3.75 MIL/uL (4.5-6.0)
[2019-09-13 07:29] LABS: CALCIUM, SERUM 8.4 mg/dL (8.5-10.1); CREATININE 0.6 mg/dL (0.6-1.3); MAGNESIUM 2.3 mg/dL (1.8-2.4); PHOSPHORUS 3.7 mg/dL (2.5-4.9); POTASSIUM 3.7 mmol/L (3.5-5.1)
--- NOTE | 2019-09-13 07:29 | NUR ---
MS RN NOTES PATIENT RECEIVED RESTING INSIDE ROOM. AWAKE, ALERT AND ORIENTED X 2. VERBALLY RESPONSIVE AND RESPONDS TO VERBAL AND TACTILE STIMULI. NO ACUTE DISTRESS NOTED AT THIS TIME. KO CATH IN PLACE WITH CLOUDY YELLOW URINE OUTPUT NOTED ON COLLECTING BAG. RECEIVED ENDORSEMENT FROM PREVIOUS SHIFT THAT PATIENT IS SCHEDULED FOR US GUIDED NEEDLE BIOPSY TODAY. GT FEEDING ON HOLD PER ORDER. SAFETY PRECAUTIONS IN PLACE. WILL CONTINUE TO MONITOR. BED LOCKED AND IN LOW POSITION. BILATERAL UPPER SIDE RAILS UP AND LOCKED. MAINTAINED ASPIRATION PRECAUTIONS. CALL LIGHT WITHIN EASY REACH
[2019-09-13 07:45] LABS: WHITE BLOOD COUNT (AUTO) 30.4 K/uL (4.3-11.0)
[2019-09-13 07:51] LABS: BAND % (MANUAL) 5 % (0.0-5.0); EOSINOPHILS % (MANUAL) 1 % (0-4); LYMPHOCYTES % (MANUAL) 11 % (16-48); MONOCYTES % (MANUAL) 9 % (0-11.0); NEUTROPHILS % (MANUAL) 74 (42-76)
[2019-09-13] MEDS: ACETYLCYSTEINE 10% SOLN 400 MG/4 ML VIAL NEB SCH ×2 (08:10→15:48)
[2019-09-13] MEDS: ACETYLCYSTEINE 10% 3,000 MG/30 ML VIAL PO SCH ×2 (08:51→17:00)
[2019-09-13] MEDS: LACTOBACILLUS RHAMNOSUS GG 1 EACH CAP.SPRINK PO SCH ×2 (08:51→17:16)
[2019-09-13] MEDS: TAMSULOSIN 0.4 MG CAP.SR.24H PO SCH (08:51)
[2019-09-13] MEDS: ENOXAPARIN SODIUM 40 MG/0.4 ML DISP.SYRIN SQ SCH (08:51)
[2019-09-13] MEDS: DONEPEZIL 5 MG TABLET PO SCH (08:51)
--- NOTE | 2019-09-13 09:10 | NUR ---
MS RN NOTES PLACED CALL TO ULTRASOUND AND SPOKE WITH MARCIO. PER MARCIO, RADIOLOGY MD WILL DISCUSS WITH ORDERING PHYSICIAN TO WHAT TIME THEY WILL DO US GUIDED BIOPSY. VERBALIZED THAT SHE WILL UPDATE STAFF OF TIMING. WILL CONTINUE TO MONITOR
--- NOTE | 2019-09-13 12:17 | NUR ---
MS RN NOTES PLACED CALL TO ULTRASOUND BUT NO ANSWER, LEFT VOICEMAIL TO CALL BACK UNIT. DR COPELAND PRESENT AT UNIT AND AWARE.
--- NOTE | 2019-09-13 14:39 | NUR ---
MS RN NOTES PLACED CALL TO ULTRASOUND TO FOLLOW-UP REGARDING US GUIDED BIOPSY BUT NO ANSWER, LEFT VOICEMAIL.
[2019-09-13] MEDS: JEVITY 1.2 CAL 1,000 ML BOTTLE GT PRN (14:54)
--- NOTE | 2019-09-13 15:13 | NUR ---
MS RN NOTES US TECH MARCIO CAME TO UNIT AND VERBALIZED US GUIDED BIOPSY IS CANCELLED. STARTED GTF. WILL CONTINUE TO MONITOR
--- NOTE | 2019-09-13 15:25 | NUR ---
MS RN NOTES RECEIVED CALL FROM CASE MANAGEMENT. VERBALIZED THAT THERE IS A PLAN FOR DISCHARGE FOR PATIENT TODAY. TO TRANSFER TO [facility]. VERBALIZED THAT DR COPELAND IS AWARE. PLACED CALL TO [facility] ([phone]) AND GAVE REPORT TO EMILY SRIVASTAVA
[2019-09-13] MEDS ORDERED: ACET1OOV6 NEB (15:29)
[2019-09-13] MEDS ORDERED: SCOP1PAT11 TD (15:29)
[2019-09-13] MEDS ORDERED: LACT1CAP72 PO (15:29)
[2019-09-13] MEDS ORDERED: ALBU2.5V13 NEB (15:29)
[2019-09-13] MEDS ORDERED: LACT-209 GT (15:29)
--- NOTE | 2019-09-13 17:34 | NUR ---
MS RN NOTES PATIENT TO DISCHARGE TO [facility]. DISCHARGE INSTRUCTIONS AND EDUCATION PROVIDED TO PATIENT AND VERBALIZED UNDERSTANDING. PLACED CALL TO OTTIS, CAREGIVER, AND VERIFIED BELONGINGS, VERBALIZED THAT HE HAS PATIENT'S SHOES AND WATCH. VERIFIED THAT NO BELONGINGS ARE MISSING. IV REMOVED, TIP INTACT. PRESSURE DRESSING PLACED ON SITE. GT IN PLACE AND PATENT. KO CATH IN PLACE. PATIENT LEFT UNIT VIA GURNEY IN STABLE CONDITION. NO NEW SKIN BREAKDOWN NOTED ON DISCHARGE. AWARE
== END 2019-09-13 17:37 | DRG 177 ==
LOC: ER 15:38 → MED 19:44 → TELE 20:46 → ICU 09-01 13:08 → TELE 09-08 16:24 → MED 09-08 17:49
PROVIDERS: ADMIT Nurse Practitioner Acute Care; ATTEND Hospitalist
PROC: 0DH63UZ Insertion of Feeding Device into Stomach, Percutaneous Approach (ICD-10-PCS; principal; 2019-09-01)
DX: J69.0 Pneumonitis due to inhalation of food and vomit (principal); R53.2 Functional quadriplegia; E43 Unspecified severe protein-calorie malnutrition; C38.1 Malignant neoplasm of anterior mediastinum; S22.41XA Multiple fractures of ribs, right side, initial encounter for closed fracture; D68.59 Other primary thrombophilia; N39.0 Urinary tract infection, site not specified; J98.11 Atelectasis; E44.0 Moderate protein-calorie malnutrition; G93.40 Encephalopathy, unspecified; C77.0 Secondary and unspecified malignant neoplasm of lymph nodes of head, face and neck; C78.02 Secondary malignant neoplasm of left lung; C78.01 Secondary malignant neoplasm of right lung; K22.0 Achalasia of cardia; R13.10 Dysphagia, unspecified; D63.8 Anemia in other chronic diseases classified elsewhere; Z79.899 Other long term (current) drug therapy; N40.0 Benign prostatic hyperplasia without lower urinary tract symptoms; D72.829 Elevated white blood cell count, unspecified; R73.9 Hyperglycemia, unspecified; Z74.09 Other reduced mobility; E87.6 Hypokalemia; G20 Parkinson's disease; F02.80 Dementia in other diseases classified elsewhere, unspecified severity, without behavioral disturbance, psychotic disturbance, mood disturbance, and anxiety; Z87.891 Personal history of nicotine dependence; I10 Essential (primary) hypertension; E04.2 Nontoxic multinodular goiter; Y92.009 Unspecified place in unspecified non-institutional (private) residence as the place of occurrence of the external cause; W19.XXXA Unspecified fall, initial encounter; D47.3 Essential (hemorrhagic) thrombocythemia; B96.5 Pseudomonas (aeruginosa) (mallei) (pseudomallei) as the cause of diseases classified elsewhere; C73 Malignant neoplasm of thyroid gland
CPT/HCPCS: 31720; 36415; 36600; 43246; 71045-TC; 71100-TC; 71250-TC; 71260-TC; 76536-TC; 80048-TC; 80053-TC; 80061-TC; 80076-TC; 80202-TC; 81000-TC; 82272-TC; 82378; 82728-TC; 82784; 82803-TC; 83540-TC; 83605-TC; 83690-TC; 83735-TC; 84100-TC; 84155; 84165; 84439-TC; 84443-TC; 84484-TC; 85025-TC; 85610-TC; 85730-TC; 86334; 86800; 87040-TC; 87070-TC; 87081-TC; 87086-TC; 87186-TC; 88305-TC; 88342; 92526; 92611-TC; 94640-TC; 94760-TC; 94762-TC; 94799-TC; 97110-TC; 97116-TC; 97530-TC; A4216; A4624; G0378; J0330; J1100; J1200; J1650; J1885; J2185; J2270; J2405; J2543; J2704; J3370; J3480; J3490; J7030; J7040; J7042; J7050; J7060; Q9967

== ENCOUNTER 2019-09-14 22:07 | Inpatient (IN) | payer MEDICARE ==
[~2019-09-14] VITALS: Ht 177.8 cm; Wt 67.6 kg
[~2019-09-14 22:07] MED LIST changes: +ACET1OOV6 NEB; +ALBU2.5V13 NEB; -CEPH-570 PO; +DONE5TAB34 GT; +LACT-209 GT; +LACT1CAP72 PO; +SCOP1PAT11 TD
--- NOTE | 2019-09-14 22:13 | NUR ---
"[id number] FROM [place] FOR LOW O2 SAT AND FEVER OF 102" pt to bed 7, pt awake, pt on monitor, md at bedside for eval
[2019-09-14 22:34] LABS: BASOPHILS # (AUTO) 0.1 /CMM (0.0-0.2); BASOPHILS % (AUTO) 0.4 % (0.0-2.0); EOSINOPHILS % (AUTO) 0.5 % (0.0-6.0); HEMATOCRIT 34 % (39-51); HEMOGLOBIN 10.9 g/dL (13.5-17.5); LYMPHOCYTES # (AUTO) 3.3 /CMM (0.8-4.8); LYMPHOCYTES % (AUTO) 10.2 % (20.0-44.0); MEAN CORPUSCULAR HGB CONC 32 g/dl (31.0-36.0); MEAN CORPUSCULAR VOLUME 84 fL (80-96); MONOCYTES # (AUTO) 2.1 /CMM (0.1-1.30); MONOCYTES % (AUTO) 6.3 % (2.0-12.0); NEUTROPHILS % (AUTO) 82.6 % (43.0-81.0); PLATELET COUNT (AUTO) 611 /CMM (150-450); RED BLOOD CELL COUNT(AUTO) 4.05 MIL/uL (4.5-6.0); WHITE BLOOD COUNT (AUTO) 32.7 K/uL (4.3-11.0)
[2019-09-14 22:46] LABS: CALCIUM, SERUM 9.1 mg/dL (8.5-10.1); CARBON DIOXIDE 30 mmol/L (21-32); CHLORIDE 105 mmol/L (98-107); CREATININE 0.7 mg/dL (0.6-1.3); GLUCOSE 132 mg/dL (74-106); POTASSIUM 3.8 mmol/L (3.5-5.1); SODIUM SERUM 139 mmol/L (136-145); UREA NITROGEN, BLOOD 16 mg/dL (7-18)
[2019-09-14 22:59] LABS: ALANINE AMINOTRANSFERASE 101 U/L (12-78); ALBUMIN 1.7 g/dL (3.4-5.0); ALKALINE PHOSPHATASE 185 U/L (46-116); ASPARTATE AMINOTRANSFERASE 102 U/L (15-37); B-TYPE NATRIURETIC PEPTIDE 593 PG/ML (0-125); BILIRUBIN,DIRECT 0.3 mg/dL (0.0-0.2); BILIRUBIN,TOTAL 0.5 mg/dL (0.2-1.0); TOTAL PROTEIN, SERUM 7.9 g/dL (6.4-8.2)
[2019-09-14] MEDS ORDERED: CIPROFLOXACIN IV RTU 400 MG in PREMIX 1 EA IV SCH (23:00)
[2019-09-14] MEDS ORDERED: PIPERACILLIN /TAZOBACTAM 3.375 G in IV D5W 50 ML IV ONE (23:00)
--- NOTE | 2019-09-14 23:00 | NUR ---
urine collected and sent to lab
[2019-09-14] MEDS ORDERED: CIPROFLOXACIN IV RTU 200 ML IV ONE (23:02)
[2019-09-14] MEDS ORDERED: PIPERACILLIN /TAZOBACTAM 3.375 G VIAL IV ONE (23:02)
[2019-09-14 23:18] LABS: EOSINOPHILS % (MANUAL) 1 % (0-4); LYMPHOCYTES % (MANUAL) 10 % (16-48); MONOCYTES % (MANUAL) 12 % (0-11.0); NEUTROPHILS % (MANUAL) 77 (42-76)
[2019-09-14] MEDS ORDERED: ACETAMINOPHEN 650 MG/SUPP.RECT RC ONE ×2 (23:30→23:58)
[2019-09-14 23:44] LABS: APPEARANCE,URINE Clear (CLEAR); BILIRUBIN,URINE SMALL (NEGATIVE); BLOOD, URINE Moderate Ery/uL (NEGATIVE); COLOR,URINE Yellow (YELLOW); KETONES,URINE Trace (NEGATIVE); LEUKOCYTE ESTERASE ,URINE Trace (NEGATIVE); NITRITE, URINE Negative (NEGATIVE); PH,URINE 5.5 (5.0-8.0); PROTEIN,URINE 100 mg/dl (NEGATIVE); UGLUCOSE Negative (NEGATIVE)
[2019-09-14 23:46] LABS: BACTERIA,URINE Few /HPF (None Seen); SQUAMOUS EPITHELIAL CELL,UR Few /HPF (None Seen)
[2019-09-15] VITALS (21 sets, daily range): BP systolic 100–138; BP diastolic 53–81
[2019-09-15] MEDS ORDERED: MAGNESIUM HYDROXIDE 30 ML UDC PO PRN
[2019-09-15] MEDS ORDERED: Z GUARD REMEDY 2 OZ OINT TP PRN
[2019-09-15] MEDS ORDERED: ONDANSETRON HCL/PF 4 MG/2 ML VIAL IVP PRN
[2019-09-15] MEDS ORDERED: ZOLPIDEM TARTRATE 5 MG TABLET PO PRN
[2019-09-15] MEDS ORDERED: MAG HYDROX/AL HYDROX/SIMETH 30 ML UDC PO PRN
[2019-09-15] MEDS ORDERED: SCOP1PAT11 TD (00:38)
[2019-09-15] MEDS ORDERED: SACC250C GT (00:38)
[2019-09-15] MEDS ORDERED: HYDR-4384 GT (00:38)
[2019-09-15] MEDS ORDERED: DOCU-141 GT (00:38)
[2019-09-15] MEDS ORDERED: VANCOMYCIN 1 GM in IV D5W 250ml IV ONE (02:00)
[2019-09-15] MEDS ORDERED: VANCOMYCIN 1 GM VIAL ONE (02:50)
--- NOTE | 2019-09-15 03:00 | NUR ---
ICU/RN-ADMITTED THIS 84 Y/O MALE FROM ER PER ACLS PROTOCOL, ACCOMPANIED BY ER STAFF. NURSING FOCUS: ALTERED RESPIRATORY STATUS R/T DIAGNOSIS OF RESPIRATORY FAILURE. ROUTINE ICU ADMISSION CARE INITIATED. ON NRB AND IMMEDIATELY CHANGED BY RT TO BIPAP W/ INITIAL SETTINGS OF:I/E-15/5,R-16, FIO2-100%.SATS.-99%.AFEBRILE. PT. OBTUNDED, NON INTERACTIVE, WITHDRAWS TO PAIN. EKG SR W/ HR-78. BP-102/64 PT. NOTED TO HAVE A REDDENED SACRUM, BLANCHABLE. PICTURE TAKEN. NO S/S OF PAIN USING THE FLACC PAIN SCALE ASSESSMENT. Addendum: 09/15/19 at 0509 by JOSE MARTIN SEGAL RN PT. IS A FULL CODE. CAREGIVER HERE CHECKING ON PT. AND WILL BE BACK LATER IN THE DAY.
--- NOTE | 2019-09-15 03:02 | NUR ---
PT TRANSPORTED TO UNIT ON GURGLIDE WITH RN, EMT AND RT AT BEDSIDE W/ ACLS PROTOCOL. NAD NOTED DURING TRANSPORT.
[2019-09-15 04:32] LABS: BASOPHILS # (AUTO) 0.1 /CMM (0.0-0.2); BASOPHILS % (AUTO) 0.2 % (0.0-2.0); EOSINOPHILS % (AUTO) 0.2 % (0.0-6.0); HEMATOCRIT 31 % (39-51); HEMOGLOBIN 9.8 g/dL (13.5-17.5); LYMPHOCYTES # (AUTO) 1.9 /CMM (0.8-4.8); LYMPHOCYTES % (AUTO) 5.7 % (20.0-44.0); MEAN CORPUSCULAR HGB CONC 32 g/dl (31.0-36.0); MEAN CORPUSCULAR VOLUME 85 fL (80-96); MONOCYTES # (AUTO) 1.9 /CMM (0.1-1.30); MONOCYTES % (AUTO) 5.6 % (2.0-12.0); NEUTROPHILS # (AUTO) 29.8 /CMM (1.8-8.9); NEUTROPHILS % (AUTO) 88.3 % (43.0-81.0); PLATELET COUNT (AUTO) 539 /CMM (150-450); RED BLOOD CELL COUNT(AUTO) 3.64 MIL/uL (4.5-6.0)
[2019-09-15 04:46] LABS: CALCIUM, SERUM 8.8 mg/dL (8.5-10.1); CREATININE 0.7 mg/dL (0.6-1.3); MAGNESIUM 2.2 mg/dL (1.8-2.4); PHOSPHORUS 3.9 mg/dL (2.5-4.9); POTASSIUM 3.6 mmol/L (3.5-5.1)
[2019-09-15 05:03] LABS: THYROID STIMULATING HORMONE 5.858 uIU/mL (0.358-3.74)
[2019-09-15 05:20] LABS: WHITE BLOOD COUNT (AUTO) 33.8 K/uL (4.3-11.0)
[2019-09-15] MEDS ORDERED: PIPERACILLIN /TAZOBACTAM 3.375 G VIAL IV ONE (05:25)
[2019-09-15] MEDS ORDERED: PIPERACILLIN /TAZOBACTAM 3.375 G in IV D5W 50 ML IV ONE (06:00)
[2019-09-15] MEDS ORDERED: FEE PK DOSING 1 MIN EA MC ONE (07:13)
[2019-09-15 07:21] LABS: ABG BASE EXCESS 1.2 mmol/L; ABG OXYGEN SATURATION 99.2 % (92.0-98.5); ABG PCO2 36.4 mmHg (35.0-45.0); ABG PH 7.454 (7.350-7.450); ABG PO2 336.6 mmHg (75.0-100.0); COHb 0.3 % (0.5-1.5); MetHb 0.4 % (0.0-1.5); O2Hb 98.5 % (94.0-97.0); SITE, ABG Right Radial; VENT MODE, BG S/T 15/5 RR16 100%
[2019-09-15 07:29] LABS: BAND % (MANUAL) 1 % (0.0-5.0); LYMPHOCYTES % (MANUAL) 6 % (16-48); MONOCYTES % (MANUAL) 3 % (0-11.0); NEUTROPHILS % (MANUAL) 90 (42-76)
--- NOTE | 2019-09-15 07:45 | NUR ---
RN/ICU PT IS ON BI-PAP ,FIO2-100%.PT IS ALOC.RESPONSIVE ON PAIN STIMULATION.IV-HL. G-TUBE CLAMPED.F/C IN PLACE DRAINING WITH MINIMAL AMOUNT OF ANJALI URINE.V/S STABLE.AFEBRILE.
[2019-09-15] MEDS: PANTOPRAZOLE 40 MG VIAL IV SCH (08:10)
--- NOTE | 2019-09-15 09:00 | NUR ---
ICU/RN DUE MEDS ARE GIVEN ORDERED.LABS REVIEW. ABG DONE FIO2 DECREASED TO 70%.V/S STABLE.
[2019-09-15] MEDS: ZOSYN IVPB 4.5 G in IV D5W 50ml IV SCH ×2 (11:39→17:56)
[2019-09-15] MEDS ORDERED: PIPERACILLIN /TAZOBACTAM 3.375 G in IV D5W 100 ML IV SCH (12:00)
--- NOTE | 2019-09-15 12:00 | NUR ---
ICU/RN PT IS AWAKE ,ALERT, ORIENTED-1.RESTLESS AND CONFUSED.PLACED ON 3L N/C SAT O2-97%.V/S STABLE.AFEBRILE.SR ON MONITOR.MIDLINE PLACED ORDERED.PT TOLERATED PROCEDURE WELL.DUE MEDS ARE GIVEN ORDERED.CONTINUE MONITORING.
[2019-09-15] MEDS: VANCOMYCIN 0.75 GM in IV D5W 250 ML IV SCH (14:37)
[2019-09-15] MEDS: SCOPOLAMINE HBR 1 EA PATCH.TD72 TD SCH (14:38)
[2019-09-15] MEDS: JEVITY 1.2 CAL 1,000 ML BOTTLE GT PRN (16:08)
[2019-09-15] MEDS: DOCUSATE SODIUM 100 MG CAPSULE PO SCH (16:36)
[2019-09-15] MEDS: LACTOBACILLUS RHAMNOSUS GG 1 EACH CAP.SPRINK GT SCH (16:36)
--- NOTE | 2019-09-15 16:58 | NUR ---
ICU/RN PM CARE PROVIDED.PT HAS REDNESS ON NERISSA AREA AND LOWER BACK. MEPILEX ON.PT PLACED ON [facility].G-TUBE RESTARTED.DUE MEDS ARE GIVEN ORDERED.V/S STABLE.AFEBRILE.NO PAIN REPORTED AT THIS TIME.CUSTOMER EQUIPMENT ENGINEER AT BEDSIDE.
--- NOTE | 2019-09-15 17:52 | NUR ---
[phone] He is admitted to ICU due to hypoxia and fever. Patient has hx of Parkinson's, esophageal achalasia, dysphagia with a recent G-tube insertion. She requires mod-max assist with adl's. Current dc plan is to return to SNF when stable. Addendum: 09/15/19 at 1753 by MALGORZATA QUEVEDO RN Amended: Links added.
--- NOTE | 2019-09-15 19:45 | NUR ---
ICU/DIRECTOR SPORTS RECEIVED REPORT FROM DAY SHIFT NURSE. SEE FLOWSHEET FOR ASSESSMENT. THERE ARE A COUPLE SKIN ISSUES THAT PT HAS, WHICH IS ADDRESSED ON FLOWSHEET ALONG WITH THE INTERVENTION TO EACH.PT HAS G-TUBE WITH FEEDING, WHICH PT IS TOLERATING.CHECKING FEEDING RESIDUALS. PT WAS TURNING AND REPOSITIONING FOR COMFORT AND CARE. WILL CONTINUE TO MONITOR THIS PT.
[2019-09-15] MEDS: Z GUARD REMEDY 2 OZ OINT TP SCH (21:12)
--- NOTE | 2019-09-15 22:20 | NUR ---
ICU/USER SUPPORT ANALYST SUPERVISOR PT WAS GIVEN PM CARE, ALONG WITH ORAL CARE. PT TOLERATED THIS WELL, REMAINS ON CURRENT 3 LITERS VIA N/C WITH SATURATION AT 97%. PT WAS TURNED AND REPOSITIONED FOR COMFORT AND CARE. WILL CONTINUE TO MONITOR THIS PT.
[2019-09-16] VITALS (24 sets, daily range): BP systolic 100–132; BP diastolic 52–75
--- NOTE | 2019-09-16 00:12 | NUR ---
ICU/TINNING EQUIPMENT TENDER PT'S FEEDING RESIDUALS WERE 130ML, DROPPED THE FEEDING DOWN TO HALF TO ALLOW THE PT TO ABSORBED THE TUBE FEEDING WHICH ALLOWS THE RESIDUALS TO DECREASE. WILL CONTINUE TO CLOSELY MONITOR THIS PT AND HIS RESIDUALS.
[2019-09-16] MEDS: ZOSYN IVPB 4.5 G in IV D5W 50ml IV SCH ×5 (00:28→23:20)
--- NOTE | 2019-09-16 02:55 | NUR ---
ICU/FORESTRY CONTRACTOR PT WAS GIVEN AM CARE, ALONG WITH ORAL CARE. PT TOLERATED THIS WELL, REMAINS ON CURRENT 3 LITERS VIA N/C WITH SATURATION AT 97%. PT WAS TURNED AND REPOSITIONED FOR COMFORT AND CARE. WILL CONTINUE TO MONITOR THIS PT.
[2019-09-16] MEDS: VANCOMYCIN 0.75 GM in IV D5W 250 ML IV SCH (03:26)
--- NOTE | 2019-09-16 04:30 | NUR ---
ICU/PROFESSIONAL BUILDER AM LABS WERE DRAWN, AWAIT FOR ANY ABNORMAL RESULTS.
[2019-09-16 05:04] LABS: BASOPHILS # (AUTO) 0.1 /CMM (0.0-0.2); BASOPHILS % (AUTO) 0.2 % (0.0-2.0); EOSINOPHILS % (AUTO) 0.7 % (0.0-6.0); HEMATOCRIT 30 % (39-51); HEMOGLOBIN 9.5 g/dL (13.5-17.5); LYMPHOCYTES # (AUTO) 2.8 /CMM (0.8-4.8); LYMPHOCYTES % (AUTO) 9.5 % (20.0-44.0); MEAN CORPUSCULAR HGB CONC 32 g/dl (31.0-36.0); MEAN CORPUSCULAR VOLUME 85 fL (80-96); MONOCYTES % (AUTO) 6.6 % (2.0-12.0); NEUTROPHILS # (AUTO) 24.6 /CMM (1.8-8.9); PLATELET COUNT (AUTO) 509 /CMM (150-450); RED BLOOD CELL COUNT(AUTO) 3.49 MIL/uL (4.5-6.0); WHITE BLOOD COUNT (AUTO) 29.7 K/uL (4.3-11.0)
[2019-09-16 05:20] LABS: ALANINE AMINOTRANSFERASE 64 U/L (12-78); ALKALINE PHOSPHATASE 151 U/L (46-116); ASPARTATE AMINOTRANSFERASE 60 U/L (15-37); BILIRUBIN,TOTAL 0.5 mg/dL (0.2-1.0); CALCIUM, SERUM 8.3 mg/dL (8.5-10.1); CARBON DIOXIDE 30 mmol/L (21-32); CHLORIDE 104 mmol/L (98-107); CREATININE 0.7 mg/dL (0.6-1.3); GLUCOSE 144 mg/dL (74-106); MAGNESIUM 2.5 mg/dL (1.8-2.4); SODIUM SERUM 136 mmol/L (136-145); TOTAL PROTEIN, SERUM 6.9 g/dL (6.4-8.2); UREA NITROGEN, BLOOD 15 mg/dL (7-18)
[2019-09-16 05:51] LABS: ALBUMIN 1.4 g/dL (3.4-5.0)
--- NOTE | 2019-09-16 06:05 | NUR ---
ICU/VOCATIONAL REHABILITATION SPECIALIST CRITICAL LAB RESULT OF 1.4 ALBUMIN. WILL PASS ON TO DAY SHIFT NURSE.
[2019-09-16] MEDS: TAMSULOSIN 0.4 MG CAP.SR.24H GT SCH (08:25)
[2019-09-16] MEDS: DOCUSATE SODIUM 100 MG CAPSULE PO SCH ×2 (08:25→16:15)
[2019-09-16] MEDS: PANTOPRAZOLE 40 MG VIAL IV SCH (08:25)
[2019-09-16] MEDS: DONEPEZIL 5 MG TABLET GT SCH (08:25)
[2019-09-16] MEDS: LACTOBACILLUS RHAMNOSUS GG 1 EACH CAP.SPRINK GT SCH ×2 (08:25→16:15)
[2019-09-16] MEDS: Z GUARD REMEDY 2 OZ OINT TP SCH ×2 (09:21→21:43)
[2019-09-16] MEDS ORDERED: POTASSIUM CHLORIDE 20 MEQ POWDER PACKET GT SCH (10:00)
--- NOTE | 2019-09-16 11:30 | NUR ---
rn notes 0730-received patient from rn. patient awake,alert, no sign of pain. on 3 lpm/nc, saturation up to 96% this time. positioned HOB upright.safety maintained. 0930-no sign of pain, awake most of times 1130-suctioned safely,HOB up. denies pain, coached to breath deep thru nose.
--- NOTE | 2019-09-16 14:32 | NUR ---
rn notes 1430-patient asleep, Ottis, keno writer/runner at bedside and he was updated of patient status. patient has been suctioned safely
[2019-09-16] MEDS: VANCOMYCIN 1 GM in IV D5W 250 ML IV SCH (15:21)
--- NOTE | 2019-09-16 17:48 | NUR ---
rn notes 1730-patient resting, needed to be suctioned nasotracheally, done safely. HOB kept upright. GT feedings up to 40ml/he this time. discussed with CHAPARRO Marquez earlier regarding feeding status, respiratory status.
--- NOTE | 2019-09-16 19:14 | NUR ---
rn notes 1900-report given to rn for further care. patient saturates up to 96%.HOB up
--- NOTE | 2019-09-16 19:30 | NUR ---
ICU/PRINT PRODUCTION COORDINATOR RECEIVED REPORT FROM DAY SHIFT NURSE. SEE FLOWSHEET FOR ASSESSMENT. THERE ARE A COUPLE SKIN ISSUES THAT PT HAS, WHICH IS ADDRESSED ON FLOWSHEET ALONG WITH THE INTERVENTION TO EACH.PT HAS G-TUBE WITH FEEDING, WHICH PT IS TOLERATING.CHECKING FEEDING RESIDUALS. PT WAS TURNING AND REPOSITIONING FOR COMFORT AND CARE. WILL CONTINUE TO MONITOR THIS PT.
--- NOTE | 2019-09-16 22:10 | NUR ---
ICU/ORTHODONTIC BAND MAKER PT WAS GIVEN PM CARE, ALONG WITH ORAL CARE. PT TOLERATED THIS WELL, REMAINS ON CURRENT 3 LITERS VIA N/C WITH SATURATION AT 97%. PT WAS TURNED AND REPOSITIONED FOR COMFORT AND CARE. WILL CONTINUE TO MONITOR THIS PT.
[2019-09-17] VITALS (24 sets, daily range): BP systolic 107–131; BP diastolic 53–74
--- NOTE | 2019-09-17 00:10 | NUR ---
ICU/CATERING ASSISTANT PT'S FEEDING RESIDUALS WERE 40ML, WILL CONTINUE TO MONITOR FEEDING RESIDUALS. PT WAS TURNED AND [id number] FOR COMFORT AN CARE. NO ACUTE DISTRESS SEEN AT THIS TIME.
--- NOTE | 2019-09-17 02:30 | NUR ---
ICU/WHITE SIDEWALL TIRE BUFFER PT WAS GIVEN AM CARE, ALONG WITH ORAL CARE. PT TOLERATED THIS WELL, REMAINS ON CURRENT 3 LITERS VIA N/C WITH SATURATION AT 95-97%. PT WAS TURNED AND REPOSITIONED FOR COMFORT AND CARE. WILL CONTINUE TO MONITOR THIS PT.
[2019-09-17] MEDS: VANCOMYCIN 1 GM in IV D5W 250 ML IV SCH ×3 (02:49→22:57)
[2019-09-17 04:24] LABS: BASOPHILS # (AUTO) 0.2 /CMM (0.0-0.2); BASOPHILS % (AUTO) 0.8 % (0.0-2.0); EOSINOPHILS % (AUTO) 0.5 % (0.0-6.0); HEMATOCRIT 29 % (39-51); HEMOGLOBIN 9.2 g/dL (13.5-17.5); LYMPHOCYTES # (AUTO) 3.1 /CMM (0.8-4.8); LYMPHOCYTES % (AUTO) 9.8 % (20.0-44.0); MEAN CORPUSCULAR HGB CONC 32 g/dl (31.0-36.0); MEAN CORPUSCULAR VOLUME 85 fL (80-96); MONOCYTES # (AUTO) 2.1 /CMM (0.1-1.30); MONOCYTES % (AUTO) 6.6 % (2.0-12.0); NEUTROPHILS # (AUTO) 26.6 /CMM (1.8-8.9); NEUTROPHILS % (AUTO) 82.3 % (43.0-81.0); PLATELET COUNT (AUTO) 491 /CMM (150-450); RED BLOOD CELL COUNT(AUTO) 3.43 MIL/uL (4.5-6.0)
--- NOTE | 2019-09-17 04:30 | NUR ---
ICU/CLASSIFICATION COUNSELOR AM LABS WERE DRAWN, AWAIT FOR ANY ABNORMAL RESULTS.
[2019-09-17 04:54] LABS: WHITE BLOOD COUNT (AUTO) 32.2 K/uL (4.3-11.0)
[2019-09-17 05:07] LABS: CREATININE 0.8 mg/dL (0.6-1.3); PHOSPHORUS 3.1 mg/dL (2.5-4.9); POTASSIUM 3.8 mmol/L (3.5-5.1)
[2019-09-17 05:12] LABS: EOSINOPHILS % (MANUAL) 3 % (0-4); LYMPHOCYTES % (MANUAL) 10 % (16-48); MONOCYTES % (MANUAL) 7 % (0-11.0); NEUTROPHILS % (MANUAL) 80 (42-76)
[2019-09-17] MEDS: ZOSYN IVPB 4.5 G in IV D5W 50ml IV SCH ×4 (05:34→23:49)
--- NOTE | 2019-09-17 06:10 | NUR ---
ICU/DIVISION CONTROLLER CRITICAL LAB RESULT OF 32.2 WBC. WILL PASS ON TO DAY SHIFT NURSE. PT HAS HAD ELEVATED WBC SINCE ADMISSIONS.
[2019-09-17] MEDS: PANTOPRAZOLE 40 MG VIAL IV SCH (08:40)
[2019-09-17] MEDS: LACTOBACILLUS RHAMNOSUS GG 1 EACH CAP.SPRINK GT SCH ×2 (08:40→16:53)
[2019-09-17] MEDS: DOCUSATE SODIUM 100 MG CAPSULE PO SCH ×2 (08:41→16:53)
[2019-09-17] MEDS: DONEPEZIL 5 MG TABLET GT SCH (08:41)
[2019-09-17] MEDS: TAMSULOSIN 0.4 MG CAP.SR.24H GT SCH (08:41)
[2019-09-17] MEDS: ACETAMINOPHEN 325 MG TABLET PO PRN (08:41)
[2019-09-17] MEDS: Z GUARD REMEDY 2 OZ OINT TP SCH ×2 (08:42→22:43)
--- NOTE | 2019-09-17 10:12 | NUR ---
RN NOTES 0730-RECEIVED PATIENT FROM RN. PATIENT OPENS EYES TO VOICE, FOLLOWS SIMPLE COMMANDS. ORAL CARE DONE, NASOTRACHEAL SUCTIONING DONE SAFELY, THICK SECRETIONS SUCTIONED, PATIENT UNABLE TO EXPECTORATE SECRETIONS, HOB UP 40 DEGREES, GT FEEDINGS ONGOING, MINIMAL RESIDUALS NOTED. 1000-PATIENT SISTER , FLORENCIO AND CAREGIVER, ANGELA SPOKE TO CHAPARRO COPELAND REGARDING PATIENT STATUS. INFORMED THEM THAT PATIENT EARLIER "LET ME GO", PATIENT SUCTIONED WITH THICK SECRETIONS, AFTERWARDS HE SAID AGAIN"LET ME GO", HEARD BY ANTHONY AND ANGELA. PATIENT HOB UP TO 40 DEGREES
--- NOTE | 2019-09-17 11:44 | NUR ---
RN NOTES PATIENT SUCTIONED SAFELY, FAMILY AT BEDSIDE.HOB UP.
--- NOTE | 2019-09-17 14:38 | NUR ---
RN NOTES 1430-PATIENT EYES CLOSED, OPENS WHEN NAME IS CALLED OUT, APPEARS COMFORTABLE. FOLLOWS SIMPLE COMMANDS APPROPRIATELY.HOB UP.
[2019-09-17] MEDS: HYDROCODONE/APAP 5/325MG 1 EACH TABLET PO PRN (15:55)
--- NOTE | 2019-09-17 18:55 | NUR ---
RN NOTES 1600-AFEBRILE.LEEP, NO SIGN OF PAIN. REST PROMOTED 1800-AWAKE, SLIDES SELF DOWN WHEN PLACED ON 40 DEG HOB ELEVATION, ORAL CARE DONE AFTER SUCTIONING SAFELY NASOTRACHEALLY 1830-DR NAVAS SPOKE TO ANGELA, CAREGIVER, IN THE ROOM REGARDING PLAN OF CARE
--- NOTE | 2019-09-17 19:20 | NUR ---
ICU/SINGLE RESOURCE BOSS RECEIVED REPORT FROM DAY SHIFT NURSE. SEE FLOWSHEET FOR ASSESSMENT. THERE ARE A COUPLE SKIN ISSUES THAT PT HAS, WHICH IS ADDRESSED ON FLOWSHEET ALONG WITH THE INTERVENTION TO EACH.PT HAS G-TUBE WITH FEEDING, WHICH PT IS TOLERATING.CHECKING FEEDING RESIDUALS. PT WAS TURNING AND REPOSITIONING FOR COMFORT AND CARE. WILL CONTINUE TO MONITOR THIS PT.
--- NOTE | 2019-09-17 22:00 | NUR ---
ICU/HEAVY LINE TECHNICIAN PT WAS GIVEN PM CARE, ALONG WITH ORAL CARE. PT TOLERATED THIS WELL, REMAINS ON CURRENT 3 LITERS VIA N/C WITH SATURATION AT 95-96%. PT WAS TURNED AND REPOSITIONED FOR COMFORT AND CARE. WILL CONTINUE TO MONITOR THIS PT.
[2019-09-18] VITALS (18 sets, daily range): BP systolic 102–142; BP diastolic 54–75
--- NOTE | 2019-09-18 00:10 | NUR ---
ICU/TERRAZZO WORKER APPRENTICE PT'S FEEDING RESIDUALS WERE 30ML, WILL CONTINUE TO MONITOR FEEDING RESIDUALS. PT WAS TURNED AND [id number] FOR COMFORT AN CARE. NO ACUTE DISTRESS SEEN AT THIS TIME.DIRECTOR STUDENT UNION JUST WENT HOME.
--- NOTE | 2019-09-18 02:40 | NUR ---
ICU/THERMAL TECHNICIAN PT WAS GIVEN AM CARE, ALONG WITH ORAL CARE. PT TOLERATED THIS WELL, REMAINS ON CURRENT 3 LITERS VIA N/C WITH SATURATION AT 95%. PT WAS TURNED AND REPOSITIONED FOR COMFORT AND CARE. WILL CONTINUE TO MONITOR THIS PT.
--- NOTE | 2019-09-18 04:55 | NUR ---
ICU/ASSOCIATE PROFESSOR OF ENGINEERING AM LABS WERE DRAWN, AWAIT FOR ANY ABNORMAL RESULTS.
[2019-09-18 05:15] LABS: CALCIUM, SERUM 8.7 mg/dL (8.5-10.1); CREATININE 0.7 mg/dL (0.6-1.3); POTASSIUM 3.9 mmol/L (3.5-5.1)
[2019-09-18 05:17] LABS: BASOPHILS # (AUTO) 0.1 /CMM (0.0-0.2); BASOPHILS % (AUTO) 0.2 % (0.0-2.0); EOSINOPHILS % (AUTO) 0.7 % (0.0-6.0); HEMATOCRIT 29 % (39-51); HEMOGLOBIN 9.4 g/dL (13.5-17.5); LYMPHOCYTES % (AUTO) 8.4 % (20.0-44.0); MEAN CORPUSCULAR HGB CONC 32 g/dl (31.0-36.0); MEAN CORPUSCULAR VOLUME 85 fL (80-96); MONOCYTES # (AUTO) 2.4 /CMM (0.1-1.30); MONOCYTES % (AUTO) 6.9 % (2.0-12.0); NEUTROPHILS # (AUTO) 29.5 /CMM (1.8-8.9); NEUTROPHILS % (AUTO) 83.8 % (43.0-81.0); PLATELET COUNT (AUTO) 522 /CMM (150-450); RED BLOOD CELL COUNT(AUTO) 3.45 MIL/uL (4.5-6.0)
[2019-09-18 05:28] LABS: WHITE BLOOD COUNT (AUTO) 35.2 K/uL (4.3-11.0)
--- NOTE | 2019-09-18 05:30 | NUR ---
ICU/SDE CRITICAL LAB VALUE OF WBC 35.2, YESTERDAY 09/17 WAS 32.3. CHARGE NURSE AWARE
[2019-09-18 05:41] LABS: BAND % (MANUAL) 2 % (0.0-5.0); EOSINOPHILS % (MANUAL) 2 % (0-4); LYMPHOCYTES % (MANUAL) 10 % (16-48); MONOCYTES % (MANUAL) 6 % (0-11.0); NEUTROPHILS % (MANUAL) 80 (42-76)
[2019-09-18] MEDS: VANCOMYCIN 1 GM in IV D5W 250 ML IV SCH ×3 (05:57→22:27)
[2019-09-18] MEDS: ZOSYN IVPB 4.5 G in IV D5W 50ml IV SCH ×4 (05:57→23:33)
[2019-09-18] MEDS: JEVITY 1.2 CAL 1,000 ML BOTTLE GT PRN (05:58)
--- NOTE | 2019-09-18 06:20 | NUR ---
ICU/SWITCHGEAR REPAIRER PT WAS DEEP SUCTIONED, SATURATION BEFORE WAS 92% POST SUCTION WAS 95%. PT WAS ABLE TO COUGH. WILL CONTINUE TO MONITOR THIS PT.
--- NOTE | 2019-09-18 07:31 | NUR ---
PERSONAL SUPPORT WORKER NOTES RECEIVED BEDSIDE REPORT. PATIENT SLEEPING ABLE TO AROUSE WITH VOICE AND TOUCH. NO S/SOF RESPIRATORY DISTRESS ON 3 LTRS NASAL CANNULA. NO C/O PAIN AT THIS TIME NOTED. SINUS ON MONITOR . GTF JEVITY 1.2 @ 50 ML/HR NO RESIDUAL NOTED. KO CATH DRAINING TO GRAVITY . SUNIL MIDLINE #18 TKO NO NAUSEA/VOMITING NOTED. HOB ELEVATED @ 30 DEGREES. SAFETY AND ASPIRATION PRECAUTIONS IN PLACE BED IN LOW LOCKED POSITION WILL CONT TO MONITOR ACCORDINGLY
[2019-09-18] MEDS: LACTOBACILLUS RHAMNOSUS GG 1 EACH CAP.SPRINK GT SCH ×2 (08:28→16:28)
[2019-09-18] MEDS: Z GUARD REMEDY 2 OZ OINT TP SCH ×2 (08:28→21:37)
[2019-09-18] MEDS: DONEPEZIL 5 MG TABLET GT SCH (08:28)
[2019-09-18] MEDS: TAMSULOSIN 0.4 MG CAP.SR.24H GT SCH (08:28)
[2019-09-18] MEDS: PANTOPRAZOLE 40 MG VIAL IV SCH (08:28)
[2019-09-18] MEDS: DOCUSATE SODIUM LIQ 100 MG/10 ML UDC GT SCH ×2 (08:28→16:28)
--- NOTE | 2019-09-18 11:31 | NUR ---
BED BATH GIVEN ORAL CARE DONE REPOSITIONED FOR COMFORT
--- NOTE | 2019-09-18 13:00 | NUR ---
PATIENT OFF BIPAP AND PLACED ON 4 LTRS NASAL CANNULA TOLERATING WELL
[2019-09-18] MEDS: SCOPOLAMINE HBR 1 EA PATCH.TD72 TD SCH (15:11)
--- NOTE | 2019-09-18 15:41 | NUR ---
REPORT GIVEN TO BRENNEN SRIVASTAVA FOR BRINA
--- NOTE | 2019-09-18 15:41 | NUR ---
TD/MANUFACTURING SUPERVISOR OF CARE - KATTY 106 REPORT GIVEN BY ICU NURSE HEATHER, PT ENDORSED TO CONTINUE CARE. PT TRANSFERRED TO [facility] VIA BED IN STABLE CONDITION.
--- NOTE | 2019-09-18 17:15 | NUR ---
TD/RN ROUNDS - KAYLAH MCALLISTER PT SEEN & EXAMINED BY KAYLAH MCALLISTER, NO NEW VERBAL ORDER RECEIVED, PER HEADLIGHT ASSEMBLER WILL ORDER LATER.
--- NOTE | 2019-09-18 17:59 | NUR ---
TD/RN ROUNDS - DR. NAVAS PT SEEN & EXAMINED BY DR. NAVAS, NO NEW ORDER RECEIVED AT THIS TIME. MONITORING CONTINUED.
--- NOTE | 2019-09-18 19:08 | NUR ---
TD/RN AM SHIFT END NOTES NO ACUTE CHANGE OF CONDITION NOTED SINCE PT WAS ENDORSED TO ME TO CONTINUE CARE. ALL NEEDS MET. PT ENDORSED TO PM NURSE TO CONTINUE CARE. CL WITHIN REACHED AND SAFETY MAINTAINED.
--- NOTE | 2019-09-18 20:15 | NUR ---
KATTY RN NOTE PT IN BED LETHARGIC. RESPONDS TO PAINFUL STIMULATION. PT HAS LOW GRADE FEVER 100.7 TYLENOL 650 MG VIA GT TUBE GIVEN. ALSO COOLING MEASURES APPLIED. BED BATH GIVEN. KEPT HOB ELEVATED 40 DEGREES. ON TELE SR HR 93. JEVITY INFUSING AT 65 ML/HR, 0 ML RESIDUAL NOTED AT THIS TIME. PT IS TOLERATING WELL. NO DISTRESS OR DISCOMFORT NOTED. NO S/S OF PAIN NOTED. REPOSITION HIM FOR SKIN MANAGEMENT. F/C INTACT AND PATENT DRAINING YELLOWISH COLOR URINE. SIDE RAILS UP X 3 AND CALL LIGHT WITHIN REACH.CONTINUE TO MONITOR HIM.
[2019-09-18] MEDS: ACETAMINOPHEN 325 MG TABLET PO PRN (20:16)
--- NOTE | 2019-09-18 21:15 | NUR ---
KATTY RN NOTE NO FEVER NOTED. NO DISTRESS NOTED.
--- NOTE | 2019-09-18 22:00 | NUR ---
PRODUCT MARKETING ANALYST NOTE PT IS MORE RESPONSIVE. RESPONDS TO VERBAL COMMANDS. SUCTIONED HIM ORALLY, THICK LIGHT YELLOWISH SECRETIONS NOTED. Addendum: 09/19/19 at 0425 by CODY MCPHERSON RN KATTY NOT ICU. WRITTEN IN ERROR
[2019-09-19] VITALS (7 sets, daily range): BP systolic 113–134; BP diastolic 53–72
[2019-09-19] MEDS: JEVITY 1.2 CAL 1,000 ML BOTTLE GT PRN (03:14)
[2019-09-19] MEDS: ZOSYN IVPB 4.5 G in IV D5W 50ml IV SCH ×3 (05:41→18:04)
[2019-09-19] MEDS: VANCOMYCIN 1 GM in IV D5W 250 ML IV SCH ×2 (06:16→15:56)
--- NOTE | 2019-09-19 06:33 | NUR ---
KATTY RN NOTE PT IN BED ASLEEP, NO DISTRESS OR DISCOMFORT NOTED. EASILY AROUSABLE. NO S/S OF PAIN NOTED. VANCO INFUSING WELL. NO S/S OF INFILTRATION NOTED. ON TELE SR. F/C INTACT AND PATENT DRAINING YELLOWISH COLOR URINE. GTF INFUSING WELL, 20 ML RESIDUAL NOTED. KEPT HOB ELEVATED. REPOSITION HIM Q2H, KEPT HIM DRY AND CLEAN. SIDE RAILS UP X 3 AND CALL LIGHT WITHIN REACH. WILL ENDORSE TO DAY SHIFT NURSE FOR CONTINUE TO CARE.
[2019-09-19 06:38] LABS: BASOPHILS # (AUTO) 0.1 /CMM (0.0-0.2); BASOPHILS % (AUTO) 0.2 % (0.0-2.0); HEMATOCRIT 29 % (39-51); HEMOGLOBIN 9.1 g/dL (13.5-17.5); LYMPHOCYTES # (AUTO) 2.9 /CMM (0.8-4.8); LYMPHOCYTES % (AUTO) 7.8 % (20.0-44.0); MEAN CORPUSCULAR HGB CONC 32 g/dl (31.0-36.0); MEAN CORPUSCULAR VOLUME 84 fL (80-96); MONOCYTES # (AUTO) 2.4 /CMM (0.1-1.30); MONOCYTES % (AUTO) 6.5 % (2.0-12.0); NEUTROPHILS # (AUTO) 31.1 /CMM (1.8-8.9); NEUTROPHILS % (AUTO) 84.5 % (43.0-81.0); PLATELET COUNT (AUTO) 523 /CMM (150-450); RED BLOOD CELL COUNT(AUTO) 3.45 MIL/uL (4.5-6.0)
[2019-09-19 07:09] LABS: BILIRUBIN,TOTAL 0.6 mg/dL (0.2-1.0); CALCIUM, SERUM 8.1 mg/dL (8.5-10.1); CREATININE 0.7 mg/dL (0.6-1.3); POTASSIUM 3.4 mmol/L (3.5-5.1); TOTAL PROTEIN, SERUM 6.8 g/dL (6.4-8.2)
[2019-09-19 07:29] LABS: WHITE BLOOD COUNT (AUTO) 36.8 K/uL (4.3-11.0)
[2019-09-19 07:45] LABS: BAND % (MANUAL) 1 % (0.0-5.0); LYMPHOCYTES % (MANUAL) 9 % (16-48); MONOCYTES % (MANUAL) 4 % (0-11.0); NEUTROPHILS % (MANUAL) 86 (42-76)
--- NOTE | 2019-09-19 08:00 | NUR ---
KATTY/RN AM SHIFT INITIAL NOTES RECEIVED PT ASLEEP IN BED, EASILY AROUSED, PT ALERT, CONFUSED, NO GRIMACING NOTED, DENIES ANY SYMPTOMS, NO ACUTE RESPIRATORY DISTRESS NOTED. ON 3L O2 VIA N/C SATURATING @ 95%, NOTED RHONCHI LUNG SOUNDS, UNLABORED RESPIRATIONS, SUCTIONED ORALLY, NOTIFIED RESPIRATORY THERAPIST FOR DEEP SUCTIONING. ON TELE WITH SINUS RHYTHM, HR 91. MIDLINE ON TKO, PATENT WITH NO S/S OF INFECTION. GT FEEDING ON GOING @ 65CC/HR, NO GASTRIC RESIDUAL, FLUSHED, PATENT. KO CATHETER INTACT WITH YELLOW CLOUDY URINE OUTPUT. DVT SLEEVE IN PLACED, PUMP TURNED ON. PT IS COMFORTABLE, SCHEDULED AM MEDS TO BE GIVEN. CL WITHIN REACHED AND SAFETY MAINTAINED. ON GOING MONITORING.
[2019-09-19 08:08] LABS: ALBUMIN 1.2 g/dL (3.4-5.0)
[2019-09-19] MEDS: DOCUSATE SODIUM LIQ 100 MG/10 ML UDC GT SCH ×2 (09:21→17:08)
[2019-09-19] MEDS: Z GUARD REMEDY 2 OZ OINT TP SCH ×2 (09:21→21:36)
[2019-09-19] MEDS: DONEPEZIL 5 MG TABLET GT SCH (09:21)
[2019-09-19] MEDS: LACTOBACILLUS RHAMNOSUS GG 1 EACH CAP.SPRINK GT SCH ×2 (09:21→17:08)
[2019-09-19] MEDS: TAMSULOSIN 0.4 MG CAP.SR.24H GT SCH (09:21)
[2019-09-19] MEDS: PANTOPRAZOLE 40 MG VIAL IV SCH (09:21)
--- NOTE | 2019-09-19 10:00 | NUR ---
KATTY/RN ROUNDS - Taiwo MILIAN UPDATED PT'S CONDITION. PT SEEN & EXAMINED BY KAYLAH RAMIREZ, NO NEW ORDER RECEIVED AT THIS TIME.
--- NOTE | 2019-09-19 11:00 | NUR ---
TD/RN ROUNDS - DR. MURRAY PT SEEN & EXAMINED BY DR. MURRAY. NO NEW ORDER RECEIVED. MONITORING CONTINUED.
[2019-09-19] MEDS ORDERED: POTASSIUM CHLORIDE 20 MEQ POWDER PACKET GT SCH (11:30)
[2019-09-19] MEDS: ALBUMIN 25% 25 GM in PREMIX 1 EA IV SCH ×2 (17:06→21:36)
--- NOTE | 2019-09-19 17:30 | NUR ---
KATTY/RN AFTERNOON ROUNDS PM CARE PROVIDED, NO CHANGE OF CONDITION.
--- NOTE | 2019-09-19 19:40 | NUR ---
KATTY/RN AM SHIFT END NOTES ALL NEEDS MET, NO ACUTE CHANGE OF CONDITION NOTED DURING THE SHIFT. PT ENDORSED TO PM NURSE TO CONTINUE CARE ALSO ENDORSED FREQUENT SUCTIONING FOR AIRWAY CLEARANCE. CL WITHIN REACHED AND SAFETY MAINTAINED.
[2019-09-19] MEDS: ACETAMINOPHEN 325 MG TABLET PO PRN (21:37)
[2019-09-20] VITALS (7 sets, daily range): BP systolic 127–137; BP diastolic 51–73
[2019-09-20] MEDS: VANCOMYCIN 1 GM in IV D5W 250 ML IV SCH ×4 (00:22→22:34)
[2019-09-20] MEDS: ZOSYN IVPB 4.5 G in IV D5W 50ml IV SCH ×5 (00:58→23:45)
[2019-09-20] MEDS: ALBUMIN 25% 25 GM in PREMIX 1 EA IV SCH ×2 (03:08→09:26)
[2019-09-20] MEDS: JEVITY 1.2 CAL 1,000 ML BOTTLE GT PRN (03:20)
[2019-09-20 06:42] LABS: BASOPHILS # (AUTO) 0.1 /CMM (0.0-0.2); BASOPHILS % (AUTO) 0.4 % (0.0-2.0); EOSINOPHILS % (AUTO) 1.6 % (0.0-6.0); HEMATOCRIT 26 % (39-51); HEMOGLOBIN 8.2 g/dL (13.5-17.5); LYMPHOCYTES # (AUTO) 2.9 /CMM (0.8-4.8); LYMPHOCYTES % (AUTO) 8.6 % (20.0-44.0); MEAN CORPUSCULAR HGB CONC 32 g/dl (31.0-36.0); MEAN CORPUSCULAR VOLUME 83 fL (80-96); MONOCYTES # (AUTO) 2.4 /CMM (0.1-1.30); MONOCYTES % (AUTO) 7.2 % (2.0-12.0); NEUTROPHILS # (AUTO) 27.9 /CMM (1.8-8.9); NEUTROPHILS % (AUTO) 82.2 % (43.0-81.0); PLATELET COUNT (AUTO) 461 /CMM (150-450); RED BLOOD CELL COUNT(AUTO) 3.08 MIL/uL (4.5-6.0)
[2019-09-20 06:49] LABS: ALBUMIN 2.1 g/dL (3.4-5.0); CALCIUM, SERUM 8.3 mg/dL (8.5-10.1); CREATININE 0.6 mg/dL (0.6-1.3); MAGNESIUM 2.2 mg/dL (1.8-2.4); PHOSPHORUS 2.3 mg/dL (2.5-4.9); POTASSIUM 3.4 mmol/L (3.5-5.1)
--- NOTE | 2019-09-20 07:15 | NUR ---
RN NOTE PT IN BED ASLEEP WITH HEAD OF BED ELEVATED. NO SIGNS OR SYMPTOMS OF PAIN OR DISCOMFORT. NO SIGNS OF ACUTE RESPIRATORY DISTRESS. PRODUCTIVE COUGH ANDCOARSE CRACKLE LUNG SOUNDS NOTED. SUCTIONING DONE NEEDED BY RT. AROUSABLE TO NAME. ON TELE MONITOR. KO CATHETER INTACT AND PATENT. GT FEEDING INFUSING WELL WITHOUT ISSUES, 25 ML RESIDUAL NOTED. CALL LIGHT WITHIN REACH.
[2019-09-20 07:21] LABS: WHITE BLOOD COUNT (AUTO) 33.9 K/uL (4.3-11.0)
[2019-09-20] MEDS ORDERED: POTASSIUM CHLORIDE 20 MEQ TAB.PRT.SR PO ONE (08:00)
[2019-09-20] MEDS ORDERED: NEUTRA PHOS 1 POWD.PACKET PO ONE (08:00)
[2019-09-20] MEDS ORDERED: POTASSIUM CHLORIDE 20 MEQ POWDER PACKET GT ONE (08:30)
[2019-09-20] MEDS: DOCUSATE SODIUM LIQ 100 MG/10 ML UDC GT SCH ×2 (08:56→16:00)
[2019-09-20] MEDS: DONEPEZIL 5 MG TABLET GT SCH (08:56)
[2019-09-20] MEDS: PANTOPRAZOLE 40 MG VIAL IV SCH (08:56)
[2019-09-20] MEDS: LACTOBACILLUS RHAMNOSUS GG 1 EACH CAP.SPRINK GT SCH ×2 (08:56→16:00)
[2019-09-20] MEDS: LEVOTHYROXINE SODIUM 50 MCG TABLET PO SCH (08:56)
[2019-09-20] MEDS: TAMSULOSIN 0.4 MG CAP.SR.24H GT SCH (08:56)
[2019-09-20] MEDS: Z GUARD REMEDY 2 OZ OINT TP SCH ×2 (09:04→20:26)
[2019-09-20 09:06] LABS: LYMPHOCYTES % (MANUAL) 7 % (16-48); MONOCYTES % (MANUAL) 6 % (0-11.0); NEUTROPHILS % (MANUAL) 87 (42-76)
[2019-09-20] MEDS: ACETAMINOPHEN 325 MG TABLET PO PRN (12:47)
[2019-09-20] MEDS ORDERED: LORAZEPAM INJ 2 MG/ML VIAL IV STA (13:19)
[2019-09-20] MEDS ORDERED: ALBUTEROL HALF STRENGTH 1.25 MG/3 ML VIAL.NEB NEB PRN (14:15)
[2019-09-20] MEDS ORDERED: IPRATROPIUM NEB FS 0.5 MG/2.5 ML AMPUL.NEB NEB PRN (14:30)
--- NOTE | 2019-09-20 15:15 | NUR ---
rn note around 1300 pt became short of breath, rr 38 p/m, temp 100.4, axillary, cooling measures initiated [employer]EV[employer] Ervin contacted and got order cxr, ativan 0.5mg iv, once, and breathing treatment. After deep suctioning, tylenol 650 mg, ativan pt calmed down a little bit. will monitor.
[2019-09-20] MEDS ORDERED: LORAZEPAM INJ 2 MG/ML VIAL IV PRN (20:00)
[2019-09-20] MEDS: HYDROCODONE/APAP 5/325MG 1 EACH TABLET PO PRN (22:36)
[2019-09-20 23:17] LABS: APPEARANCE,URINE CLEAR (CLEAR); BILIRUBIN,URINE NEGATIVE (NEGATIVE); BLOOD, URINE TRACE-INTA Ery/uL (NEGATIVE); COLOR,URINE YELLOW (YELLOW); KETONES,URINE NEGATIVE (NEGATIVE); LEUKOCYTE ESTERASE ,URINE NEGATIVE (NEGATIVE); NITRITE, URINE NEGATIVE (NEGATIVE); PROTEIN,URINE 30 mg/dl (NEGATIVE); UGLUCOSE NEGATIVE (NEGATIVE); UROBILINOGEN,URINE >=8.0 EU/dL (0.2)
[2019-09-20 23:32] LABS: BACTERIA,URINE Rare /HPF (None Seen); RBC,URINE 0-2 /HPF (0-2); SQUAMOUS EPITHELIAL CELL,UR Rare /HPF (None Seen)
[2019-09-21] VITALS (23 sets, daily range): BP systolic 103–150; BP diastolic 47–86
[2019-09-21] MEDS: JEVITY 1.2 CAL 1,000 ML BOTTLE GT PRN (00:58)
[2019-09-21] MEDS: ACETAMINOPHEN 325 MG TABLET PO PRN (01:26)
[2019-09-21] MEDS: ZOSYN IVPB 4.5 G in IV D5W 50ml IV SCH ×2 (06:15→11:54)
[2019-09-21 06:38] LABS: BASOPHILS # (AUTO) 0.4 /CMM (0.0-0.2); BASOPHILS % (AUTO) 0.9 % (0.0-2.0); EOSINOPHILS % (AUTO) 0.7 % (0.0-6.0); HEMATOCRIT 28 % (39-51); HEMOGLOBIN 8.6 g/dL (13.5-17.5); LYMPHOCYTES # (AUTO) 1.8 /CMM (0.8-4.8); LYMPHOCYTES % (AUTO) 4.2 % (20.0-44.0); MEAN CORPUSCULAR HGB CONC 31 g/dl (31.0-36.0); MEAN CORPUSCULAR VOLUME 84 fL (80-96); MONOCYTES # (AUTO) 2.5 /CMM (0.1-1.30); MONOCYTES % (AUTO) 5.6 % (2.0-12.0); NEUTROPHILS # (AUTO) 38.8 /CMM (1.8-8.9); NEUTROPHILS % (AUTO) 88.6 % (43.0-81.0); PLATELET COUNT (AUTO) 501 /CMM (150-450); RED BLOOD CELL COUNT(AUTO) 3.28 MIL/uL (4.5-6.0)
[2019-09-21 07:00] LABS: WHITE BLOOD COUNT (AUTO) 43.8 K/uL (4.3-11.0)
[2019-09-21 07:47] LABS: CARBON DIOXIDE 29 mmol/L (21-32); CHLORIDE 103 mmol/L (98-107); CREATININE 0.8 mg/dL (0.6-1.3); GLUCOSE 142 mg/dL (74-106); MAGNESIUM 2.3 mg/dL (1.8-2.4); PHOSPHORUS 4.3 mg/dL (2.5-4.9); POTASSIUM 3.8 mmol/L (3.5-5.1); SODIUM SERUM 140 mmol/L (136-145); UREA NITROGEN, BLOOD 13 mg/dL (7-18)
--- NOTE | 2019-09-21 07:52 | NUR ---
RN OPENING NOTES RECEIVED PATIENT ON BED , ASLEEP BUT EASILY AROUSABLE, ON 10l VIA SIMPLE MASK, NOTED WITH CHEST CONGESTION, NASAL PHARYNGAL SUCTION DONE, TELEMONITOR SR, HR 78, ON F/C TO GRAVITY WITH YELLOW COLOR URINE. ON GTUBE IN PLACE, RESIDUAL CHECKED, JEVITY AT 65ML/HR, IV SITE ON RIGHT UA MIDLINE AT TKO, FLUSHED WELL. BED LOCK IN LOW POSITION , CONTINUE TO MONITOR CLOSELY. CALL LIGHT WITHIN REACH.
[2019-09-21 08:15] LABS: BAND % (MANUAL) 8 % (0.0-5.0); LYMPHOCYTES % (MANUAL) 4 % (16-48); MONOCYTES % (MANUAL) 5 % (0-11.0); MYELOCYTES % 1 % (0-0); NEUTROPHILS % (MANUAL) 82 (42-76)
--- NOTE | 2019-09-21 08:30 | NUR ---
KATTY RN NOTES RT AT BEDSIDE,DEEP SUCTION DONE, KEPT CLEAN AND DRY, REPOSITIONED.
--- NOTE | 2019-09-21 09:30 | NUR ---
KATTY SRIVASTAVA NOTES DR ISAAC AT BED SIDE, ORDER ABG STAT, WAS TRANSFERRED TO ICU Addendum: 09/21/19 at 0959 by [address]ALLY R[address]EE RN [address] ISAAC NOTIFIED THAT LACTIC ACID IS 3.5 AND WBC 43.8
[2019-09-21 09:43] LABS: BILIRUBIN,DIRECT 0.3 mg/dL (0.0-0.2); BILIRUBIN,TOTAL 0.6 mg/dL (0.2-1.0)
--- NOTE | 2019-09-21 09:45 | NUR ---
SENIOR SVP NOTE RECEIVED REPORT FROM KATTY NURSE SAIRA. RECEIVED PATIENT LETHARGIC, SOB, CONGESTED, ON SIMPLE MASK. RT AND DR. ISAAC AT BEDSIDE WITH ORDERS TO DEEP SUCTION PATIENT AND PLACE PATIENT ON BIPAP. SKIN WARM AND DRY TO TOUCH. F/C PATENT, INTACT, DRAINING BY GRAVITY. WITH GT PATENT, INTACT, IN PLACE. SUNIL MIDLINE PATENT AND INTACT. HOB ELEVATED. SIDE RAILS UP AND LOCKED. BED KEPT AT LOWEST POSITION. WILL CONTINUE TO MONITOR.
[2019-09-21 09:46] LABS: ABG BASE EXCESS 3.5 mmol/L; ABG OXYGEN SATURATION 97.1 % (92.0-98.5); ABG PCO2 57.9 mmHg (35.0-45.0); ABG PH 7.336 (7.350-7.450); ABG PO2 103.9 mmHg (75.0-100.0); AaDO2 231.1 mmHg; COHb 0.3 % (0.5-1.5); MetHb 0.6 % (0.0-1.5); O2Hb 96.2 % (94.0-97.0); SITE, ABG Right Brachial; VENT MODE, BG Simple Mask
--- NOTE | 2019-09-21 09:50 | NUR ---
KATTY SRIVASTAVA NOTES REPORTED TO JOELLE BRIGHT THAT WBC 43.8, LACTIC ACID 3.5 AND AWARE THAT PATIENT IS GOING TO ICU Addendum: 09/21/19 at 1116 by WALLY RENEE RN REPORT GIVEN TO ASHTYN SRIVASTAVA ICU, TRANSFERRED PT BY ACLS PROTOCOL BY BED
--- NOTE | 2019-09-21 09:57 | NUR ---
MONUMENTAL STONEMASON NOTE DR. ISAAC SPOKE WITH SISTER, SISTER AGREED TO DNR/DNI. PER MD HOLD GTF FOR NOW AND START D5NS AT 75ML/HR. WILL CONTINUE TO MONITOR.
[2019-09-21] MEDS: VANCOMYCIN 1 GM in IV D5W 250 ML IV SCH ×3 (10:10→22:55)
[2019-09-21] MEDS: LEVOTHYROXINE SODIUM 50 MCG TABLET PO SCH (10:16)
[2019-09-21] MEDS: LACTOBACILLUS RHAMNOSUS GG 1 EACH CAP.SPRINK GT SCH ×2 (10:16→17:15)
[2019-09-21] MEDS: DOCUSATE SODIUM LIQ 100 MG/10 ML UDC GT SCH ×2 (10:16→17:15)
[2019-09-21] MEDS: Z GUARD REMEDY 2 OZ OINT TP SCH ×2 (10:16→21:33)
[2019-09-21] MEDS: DONEPEZIL 5 MG TABLET GT SCH (10:16)
[2019-09-21] MEDS: PANTOPRAZOLE 40 MG VIAL IV SCH (10:16)
[2019-09-21] MEDS: TAMSULOSIN 0.4 MG CAP.SR.24H GT SCH (10:17)
[2019-09-21] MEDS: IV D5/ 0.9% NACL 1,000 ML IV PRN (10:45)
[2019-09-21 12:17] LABS: ABG BASE EXCESS 4.3 mmol/L; ABG OXYGEN SATURATION 97.4 % (92.0-98.5); ABG PCO2 49.4 mmHg (35.0-45.0); ABG PH 7.398 (7.350-7.450); ABG PO2 105.7 mmHg (75.0-100.0); AaDO2 267.8 mmHg; COHb 0.3 % (0.5-1.5); MetHb 0.5 % (0.0-1.5); O2Hb 96.6 % (94.0-97.0); SITE, ABG Right Brachial; VENT MODE, BG S/T 15/5 RR16 60%
[2019-09-21] MEDS: MEROPENEM 1 G in IV NS 0.9% 100 ML IV SCH ×2 (13:45→21:32)
[2019-09-21] MEDS: SCOPOLAMINE HBR 1 EA PATCH.TD72 TD SCH (13:45)
--- NOTE | 2019-09-21 19:23 | NUR ---
TUG CAPTAIN CLOSING NOTE RESTING COMFORTABLY AT THIS TIME. NO RESPIRATORY DISTRESS NOTED. TOLERATING BIPAP. F/C PATENT, INTACT, DRAINING BY GRAVITY. KEPT CLEAN AND DRY. TURNED AND REPOSITIONED Q2 AND PRN. CONTINUITY OF CARE ENDORSED TO PM NURSE.
--- NOTE | 2019-09-21 19:55 | NUR ---
SELF PROPELLED MINING MACHINE OPERATOR, INITIAL ASSESSMENT. RECEIVED THE PT REST ON THE BED. PT AWAKE, VERY LETHARGIC, OPEN EYES. HOB ELEVATED. BIPAP ON, SETTINGS 15/5, RATE IS 16,FIO2 60%, SAT 98%. NO ACUTE DISTRESS NOTED. PARKING LOT ATTENDANT AND CASHIER SHOWING NSR, IV RT UPPER ARM MID LINE. IVF D5W 75ML/H, FC PATENT, TURN AND REPOSITION Q2H. WILL CONTINUE TO MONITOR VITALS.
--- NOTE | 2019-09-21 20:38 | NUR ---
RT NOTE PT RECEIVED ON BIPAP WITH MEPELIX IN PLACE. MASK SECURED. BIPAP PLUGGED TO RED OUTLET. ALARMS ON AND AUDIBLE. NO DISTRESS NOTED AT THIS TIME. WILL MONITOR CLOSELY. Addendum: 09/21/19 at 2038 by MIA HERRERA RT Amended: Links added.
[2019-09-22] VITALS (26 sets, daily range): BP systolic 107–173; BP diastolic 49–76
--- NOTE | 2019-09-22 02:52 | NUR ---
TUBING MILL SETTER. AM CARE, ORAL CARE, BED BATH GIVEN. LINEN CHANGED. REMAINING SAME BIPAP DSETTING TOLERATED WELL. SAT 99%. CHIEF RECORDIST SHOWING NSR, IV RT UPPER ARM MID LINE IVF D5NS 75ML/H. HOB ELEVATED. FC PATENT URINE DRAINING. TURN AND REPOSITION Q2H. WILL CONTINUE TO MONITOR VITALS.
[2019-09-22] MEDS: IV D5/ 0.9% NACL 1,000 ML IV PRN ×2 (02:58→22:54)
[2019-09-22] MEDS: MEROPENEM 1 G in IV NS 0.9% 100 ML IV SCH ×3 (04:42→20:18)
[2019-09-22 05:03] LABS: BASOPHILS # (AUTO) 0.1 /CMM (0.0-0.2); BASOPHILS % (AUTO) 0.3 % (0.0-2.0); HEMATOCRIT 27 % (39-51); HEMOGLOBIN 8.2 g/dL (13.5-17.5); LYMPHOCYTES # (AUTO) 3.3 /CMM (0.8-4.8); LYMPHOCYTES % (AUTO) 8.1 % (20.0-44.0); MEAN CORPUSCULAR HGB CONC 31 g/dl (31.0-36.0); MEAN CORPUSCULAR VOLUME 84 fL (80-96); MONOCYTES # (AUTO) 2.7 /CMM (0.1-1.30); MONOCYTES % (AUTO) 6.8 % (2.0-12.0); NEUTROPHILS # (AUTO) 33.7 /CMM (1.8-8.9); NEUTROPHILS % (AUTO) 83.8 % (43.0-81.0); PLATELET COUNT (AUTO) 496 /CMM (150-450); RED BLOOD CELL COUNT(AUTO) 3.16 MIL/uL (4.5-6.0)
[2019-09-22 05:08] LABS: CALCIUM, SERUM 8.7 mg/dL (8.5-10.1); CREATININE 0.6 mg/dL (0.6-1.3); POTASSIUM 2.9 mmol/L (3.5-5.1)
[2019-09-22 05:17] LABS: WHITE BLOOD COUNT (AUTO) 40.2 K/uL (4.3-11.0)
[2019-09-22 05:45] LABS: EOSINOPHILS % (MANUAL) 1 % (0-4); LYMPHOCYTES % (MANUAL) 9 % (16-48); MONOCYTES % (MANUAL) 7 % (0-11.0); NEUTROPHILS % (MANUAL) 83 (42-76)
[2019-09-22] MEDS: VANCOMYCIN 1 GM in IV D5W 250 ML IV SCH ×3 (07:41→22:51)
[2019-09-22 07:58] LABS: ABG BASE EXCESS 4.1 mmol/L; ABG OXYGEN SATURATION 98.9 % (92.0-98.5); ABG PCO2 48.3 mmHg (35.0-45.0); ABG PH 7.402 (7.350-7.450); AaDO2 180.7 mmHg; COHb 0.3 % (0.5-1.5); MetHb 0.9 % (0.0-1.5); O2Hb 97.7 % (94.0-97.0); SITE, ABG Left Radial; VENT MODE, BG ST 15/5 16 60%
--- NOTE | 2019-09-22 08:00 | NUR ---
MANAGING ATTORNEY: K+ 2.9, sent message for
--- NOTE | 2019-09-22 08:15 | NUR ---
RADIOLOGY NURSE: is in room, updated with pt.current status, ABG, VS, neurostatus, NPO, ordered: remove Bipap, monitoring, ABG in 1 hr, if Ok: resume GTF, if distress: place back to Bipap
--- NOTE | 2019-09-22 08:20 | NUR ---
GREEN CHAIN MARKER: is in room, updated with pt.current condition, VS, I/O, neuro status, NPO now/resume GTF if ok with off of Bipap per
--- NOTE | 2019-09-22 08:40 | NUR ---
PROPOSAL SPECIALIST: K+ 2.9, creat 0.6, spoke with , ordered: 40 meq K via GT now, 40 meq K in 4 hrs, recheck K in morning time
--- NOTE | 2019-09-22 08:50 | NUR ---
ARTIFICIAL INSEMINATOR: answered/said: follow Dr.Peleg rodríguez
[2019-09-22] MEDS: FLUCONAZOLE IN NS,PREMIX 400 MG in PREMIX 1 EA IV SCH ×2 (09:00)
[2019-09-22] MEDS: DOCUSATE SODIUM LIQ 100 MG/10 ML UDC GT SCH ×2 (09:00→17:07)
[2019-09-22] MEDS ORDERED: POTASSIUM CHLORIDE 20 MEQ POWDER PACKET GT ONE ×2 (09:05→13:00)
[2019-09-22] MEDS: PANTOPRAZOLE 40 MG VIAL IV SCH (09:44)
[2019-09-22] MEDS: DONEPEZIL 5 MG TABLET GT SCH (09:44)
[2019-09-22] MEDS: TAMSULOSIN 0.4 MG CAP.SR.24H GT SCH (09:44)
[2019-09-22] MEDS: LEVOTHYROXINE SODIUM 50 MCG TABLET PO SCH (09:44)
[2019-09-22] MEDS: LACTOBACILLUS RHAMNOSUS GG 1 EACH CAP.SPRINK GT SCH ×2 (09:44→17:07)
[2019-09-22] MEDS: Z GUARD REMEDY 2 OZ OINT TP SCH ×2 (09:51→20:19)
--- NOTE | 2019-09-22 10:00 | NUR ---
BOARD MIXER TENDER: pt.is A/Ox1, can follow simple commands, weak arms activity, no pain, O2sat. 93-94% on 4L n/c, no SOB, SR, SBP WNL, will restart GTF
--- NOTE | 2019-09-22 10:30 | NUR ---
HAM CURER: is in room, updated with pt.current status, VS, off of Bipap since 829, order, O2sat., labs, meds, ok to restart GTF
--- NOTE | 2019-09-22 12:00 | NUR ---
AUTOMATIC DEVELOPER: pt.is A/O2, more awake, no pain, rest, no SOB, O2sat 92-95% on 4L n/c, SR, SBP over 100, below 160, GTF started, keep HOB 45, PCG, pt.sister are in room, suctioned well orally deeply/removed thick saliva clots
[2019-09-22] MEDS: JEVITY 1.2 CAL 1,000 ML BOTTLE GT PRN (12:10)
--- NOTE | 2019-09-22 14:18 | NUR ---
TRUCKMAN: pt is deeply nasopharyngeally suctioned well by RT, lungs sounds are better
--- NOTE | 2019-09-22 14:49 | NUR ---
WINDING RACK OPERATOR: pt c/o SOB, said: hard to breath, O2sat. 87-88%, ST 110-120, suctioned deeply and placed back on Bipap, hold GTF
--- NOTE | 2019-09-22 15:32 | NUR ---
FINE ARTS TEACHER: is in room, updated with pt current status, VS, orders, POC
[2019-09-22] MEDS: ACETAMINOPHEN 325 MG TABLET PO PRN (17:10)
--- NOTE | 2019-09-22 18:00 | NUR ---
PLASTICS HEAT WELDER: pt is drowsy, reactive by touch, rest, weak, eyes contact+, no grimacing, O2sat. over 94% on Bipap, SR, SBP over 100, all skin,PM,wound care done
--- NOTE | 2019-09-22 19:29 | NUR ---
CYCLE REPAIRER. INITIAL ASSESSMENT. RECEIVED THE PT REST ON THE BED. OPEN EYES. DOES NOT FOLLOW COMMANDS. NPO. BIPAP ON. SETTINGS 15/5,RATE IS 16,FIO2 50%. SAT 98%. IV RT UPPER ARM MID LINE IVF D5NS 75ML/H. FC PATENT. URINE DRAINING. GT INTACT. CLAMPED. HOB ELEVATED. AFEBRILE. AT THIS TIME. WILL CONTINUE TO MONITOR VITALS.
[2019-09-23] VITALS (24 sets, daily range): BP systolic 119–164; BP diastolic 50–80
--- NOTE | 2019-09-23 03:32 | NUR ---
HEADING PINNER. AM CARE, ORAL CARE, BED BATH GIVEN. LINEN CHANGED. REMAINING SAME BIPAP SETTING TOLERATED WELL SAT 97%. SMALL PARTS ASSEMBLER SHOWING NSR,IN RT UPPER ARM MID LINE IVF D5NS 75ML/H. HOB ELEVATED, FC PATENT URINE DRAINING. GT CLAMPED. TURN AND REPOSITION Q2H. WILL CONTINUE TO MONITOR VITALS.
--- NOTE | 2019-09-23 03:58 | NUR ---
PT TAKEN OFF BIPAP AND PLACED ON 4L NC. NOTIFIED MARISEL SRIVASTAVA. WILL CONTINUE TO MONITOR.
[2019-09-23] MEDS: MEROPENEM 1 G in IV NS 0.9% 100 ML IV SCH ×3 (04:39→20:52)
--- NOTE | 2019-09-23 04:40 | NUR ---
LIFEGUARD. AROUND 0330. BIPAP OFF. OXYGEN 4L VIA NASAL CANNULA. SAT 95. WILL CONTINUE TO MONITOR.
--- NOTE | 2019-09-23 04:41 | NUR ---
UNDERGROUND TRUCK OPERATOR. AROUND 0430 DISTRESS NOTED. BIPAP PLACED SAME SETTINGS. . WILL CONTINUE TO MONITOR
--- NOTE | 2019-09-23 04:44 | NUR ---
PT PLACED BACK ON BIPAP DO TO INCREASED WOB.
[2019-09-23 05:15] LABS: BASOPHILS # (AUTO) 0.1 /CMM (0.0-0.2); BASOPHILS % (AUTO) 0.2 % (0.0-2.0); EOSINOPHILS % (AUTO) 0.5 % (0.0-6.0); HEMATOCRIT 26 % (39-51); HEMOGLOBIN 8.2 g/dL (13.5-17.5); LYMPHOCYTES % (AUTO) 7.5 % (20.0-44.0); MEAN CORPUSCULAR HGB CONC 31 g/dl (31.0-36.0); MEAN CORPUSCULAR VOLUME 83 fL (80-96); MONOCYTES # (AUTO) 2.5 /CMM (0.1-1.30); MONOCYTES % (AUTO) 6.2 % (2.0-12.0); NEUTROPHILS # (AUTO) 34.1 /CMM (1.8-8.9); NEUTROPHILS % (AUTO) 85.6 % (43.0-81.0); PLATELET COUNT (AUTO) 493 /CMM (150-450); RED BLOOD CELL COUNT(AUTO) 3.17 MIL/uL (4.5-6.0)
[2019-09-23 05:33] LABS: CALCIUM, SERUM 8.5 mg/dL (8.5-10.1); CREATININE 0.6 mg/dL (0.6-1.3); MAGNESIUM 1.9 mg/dL (1.8-2.4); PHOSPHORUS 1.9 mg/dL (2.5-4.9); POTASSIUM 3.3 mmol/L (3.5-5.1)
[2019-09-23 05:36] LABS: WHITE BLOOD COUNT (AUTO) 39.8 K/uL (4.3-11.0)
[2019-09-23 06:18] LABS: BAND % (MANUAL) 3 % (0.0-5.0); LYMPHOCYTES % (MANUAL) 6 % (16-48); MONOCYTES % (MANUAL) 5 % (0-11.0); NEUTROPHILS % (MANUAL) 85 (42-76); REACTIVE LYMPHOCYTES 1 % (0-0)
--- NOTE | 2019-09-23 07:38 | NUR ---
BLADE WORKER: pt.is very weak, awake/Ox, can answer y/n, denies pain now, SR, had junctional bits over night, SBP over 100 below 160 now, O2sat. over 95% on Bipap, no SOB, GTF on hold until on Bipap, no SOB, RT is in room/updated, K 3.3, phos 1.9/will speak with
[2019-09-23] MEDS: VANCOMYCIN 1 GM in IV D5W 250 ML IV SCH (07:50)
[2019-09-23] MEDS: FLUCONAZOLE IN NS,PREMIX 400 MG in PREMIX 1 EA IV SCH ×2 (08:31)
--- NOTE | 2019-09-23 08:35 | NUR ---
DICE PERSON: PCG called/updated with VS, POC
--- NOTE | 2019-09-23 08:50 | NUR ---
PLATING OPERATOR: is in room, updated with pt.current condition, VS, I/O, neurostatus, pt was without Bipap yesterday around 4 hrs, got distress, RT is in room, plan: place back to O2 n/c, monitoring, upper airway toilet, PO meds, ok for GTF if no respiratory problem, with distress: ABG, back to Bipap as needed
--- NOTE | 2019-09-23 09:20 | NUR ---
FUNERAL LIMOUSINE DRIVER: NORAH Day is in room, updated with pt.status, VS, orders, POC, I/O, respiratory status, see new order
[2019-09-23] MEDS: Z GUARD REMEDY 2 OZ OINT TP SCH ×2 (09:36→20:52)
[2019-09-23] MEDS: PANTOPRAZOLE 40 MG VIAL IV SCH (09:36)
[2019-09-23] MEDS: LACTOBACILLUS RHAMNOSUS GG 1 EACH CAP.SPRINK GT SCH ×2 (09:54→16:10)
[2019-09-23] MEDS: TAMSULOSIN 0.4 MG CAP.SR.24H GT SCH (09:54)
[2019-09-23] MEDS: LEVOTHYROXINE SODIUM 50 MCG TABLET PO SCH (09:54)
[2019-09-23] MEDS: DONEPEZIL 5 MG TABLET GT SCH (09:54)
[2019-09-23] MEDS: DOCUSATE SODIUM LIQ 100 MG/10 ML UDC GT SCH ×2 (10:04→16:09)
--- NOTE | 2019-09-23 10:15 | NUR ---
GAS SHOVEL OPERATOR: RT reported: pt got distress, labored breathing in 10-15 mins after Bipap removal, got back to Bipap, now pt is rest, no SOB, reactive by touch, can follow simple commands, but still very weak, no pain, O2sat. over 95%, SR, SBP over 100, repositioned q2h
[2019-09-23] MEDS ORDERED: POTASSIUM CHLORIDE 20 MEQ POWDER PACKET GT SCH (11:30)
[2019-09-23] MEDS ORDERED: NEUTRA PHOS 1 POWD.PACKET GT ONE (12:00)
--- NOTE | 2019-09-23 13:20 | NUR ---
DIRECTOR OF PROGRAMMING: 13.05 second attempt switch off Bipap, O2sat 92-94% on 4L n/c, no SOB, oral cavity care done, nose bridge skin care done, PCG at BS, continue monitoring
--- NOTE | 2019-09-23 13:52 | NUR ---
NECK CUTTER: is in room, updated with all above, neurostatus, VS, I/O, IVF, GTF for Bipap off time, visit and orders, spoke with PCG, plan: meeting with pt for next POC/decisions on Wednesday
[2019-09-23] MEDS: JEVITY 1.2 CAL 1,000 ML BOTTLE GT PRN (14:03)
--- NOTE | 2019-09-23 14:08 | NUR ---
CROP RANCH HAND: Bipap is off, O2sat.92-93%, no SOB, no distress, keep HOB 45, started GTF with qh residual V
--- NOTE | 2019-09-23 14:21 | NUR ---
ELECTRONICS ENGINEERING MANAGER: is in room, updated with pt.current condition, POC, VS, GTF during bipap off time, I/O, orders, spoke with pt PCG
--- NOTE | 2019-09-23 15:08 | NUR ---
MINING DETAIL DRAFTSPERSON: GTF residual 10 ml
--- NOTE | 2019-09-23 15:50 | NUR ---
DIRECTOR INTEGRATED: pt. is desaturated rapidly to 84-88% with laboring chest breathing, SOB, [id number], called RT to place back to Bipap. Pt.sister Radha notified re meeting with , got phone#. GTF residual is 10ml, hold GTF.
[2019-09-23] MEDS: ACETAMINOPHEN 325 MG TABLET PO PRN (16:09)
[2019-09-23] MEDS: IV D5/ 0.9% NACL 1,000 ML IV PRN (17:32)
--- NOTE | 2019-09-23 17:40 | NUR ---
HARBOR TUG CAPTAIN: pt.is rest, reactive by touch, no pain, no SOB, no laboring, tolerated well with Bipap, O2 sat. over 96%, SR, all PM, skin, wound, oral care done, pt.son is in room, updated with pt.current condition, VS, POC, aware re possible meeting with on Wednesday
--- NOTE | 2019-09-23 19:45 | NUR ---
ICU/BIOFUELS TECHNOLOGY MANAGER RECEIVED REPORT FROM DAY SHIFT NURSE. SEE FLOWSHEET FOR ASSESSMENT. THERE ARE A COUPLE SKIN ISSUES THAT PT HAS, WHICH IS ADDRESSED ON FLOWSHEET ALONG WITH THE INTERVENTION TO EACH.PT HAS NO G-TUBE FEEDING DUE TO THE FACT PT IS ON BIPAP. PT WAS TURNING AND REPOSITIONING FOR COMFORT AND CARE. WILL CONTINUE TO MONITOR THIS PT.
--- NOTE | 2019-09-23 22:10 | NUR ---
ICU/INSTALLATION AND REPAIR TECHNICIAN PT WAS GIVEN PM CARE, ALONG WITH ORAL CARE. PT TOLERATED THIS WELL, REMAINS ON CURRENT BIPAP SETTINGS WITH SATURATION AT 95-96%. PT WAS TURNED AND REPOSITIONED FOR COMFORT AND CARE. WILL CONTINUE TO MONITOR THIS PT.
[2019-09-24] VITALS (26 sets, daily range): BP systolic 128–167; BP diastolic 57–81
--- NOTE | 2019-09-24 00:05 | NUR ---
ICU/EQUITY DIRECTOR PT WAS TURNED AND REPOSITIONED FOR COMFORT AND CARE. WILL CONTINUE TO MONITOR THIS PT. NO ACUTE DISTRESS SEEN AT THIS TIME.
--- NOTE | 2019-09-24 02:18 | NUR ---
ICU/GEOLOGICAL ENGINEERING TEACHER PT WAS GIVEN AM CARE, ALONG WITH ORAL CARE. PT TOLERATED THIS WELL, REMAINS ON CURRENT BIPAP SETTINGS WITH SATURATION AT 95-96%. PT WAS TURNED AND REPOSITIONED FOR COMFORT AND CARE. WILL CONTINUE TO MONITOR THIS PT.
[2019-09-24] MEDS: MEROPENEM 1 G in IV NS 0.9% 100 ML IV SCH ×3 (04:47→20:37)
[2019-09-24] MEDS: IV D5/ 0.9% NACL 1,000 ML IV PRN (04:47)
[2019-09-24 04:50] LABS: EOSINOPHILS % (AUTO) 0.7 % (0.0-6.0); HEMATOCRIT 26 % (39-51); HEMOGLOBIN 8.2 g/dL (13.5-17.5); LYMPHOCYTES # (AUTO) 0.3 /CMM (0.8-4.8); LYMPHOCYTES % (AUTO) 0.8 % (20.0-44.0); MEAN CORPUSCULAR HGB CONC 32 g/dl (31.0-36.0); MEAN CORPUSCULAR VOLUME 83 fL (80-96); MONOCYTES # (AUTO) 25.7 /CMM (0.1-1.30); MONOCYTES % (AUTO) 67.1 % (2.0-12.0); NEUTROPHILS % (AUTO) 31.4 % (43.0-81.0); PLATELET COUNT (AUTO) 494 /CMM (150-450); RED BLOOD CELL COUNT(AUTO) 3.13 MIL/uL (4.5-6.0)
[2019-09-24 05:13] LABS: CALCIUM, SERUM 8.9 mg/dL (8.5-10.1); CARBON DIOXIDE 31 mmol/L (21-32); CHLORIDE 108 mmol/L (98-107); CREATININE 0.5 mg/dL (0.6-1.3); GLUCOSE 105 mg/dL (74-106); PHOSPHORUS 1.8 mg/dL (2.5-4.9); POTASSIUM 2.9 mmol/L (3.5-5.1); SODIUM SERUM 146 mmol/L (136-145); UREA NITROGEN, BLOOD 7 mg/dL (7-18)
[2019-09-24 05:44] LABS: LYMPHOCYTES % (MANUAL) 2 % (16-48); MONOCYTES % (MANUAL) 1 % (0-11.0); NEUTROPHILS % (MANUAL) 97 (42-76)
[2019-09-24 06:23] LABS: WHITE BLOOD COUNT (AUTO) 38.3 K/uL (4.3-11.0)
[2019-09-24 07:07] LABS: BILIRUBIN,TOTAL 0.6 mg/dL (0.2-1.0)
--- NOTE | 2019-09-24 07:30 | NUR ---
MOLD TECHNICIAN INITIAL NOTE RECEIVED PATIENT AWAKE, RESPONSIVE TO NAME, DENIES PAIN OR DISCOMFORT. NO RESPIRATORY DISTRESS NOTED, ON BIPAP. ON TELE MONITOR SR. F/C PATENT, INTACT, DRAINING BY GRAVITY. GT PATENT, INTACT, IN PLACE. SUNIL MIDLINE PATENT AND INTACT, WITH GOOD BLOOD RETURN, IVF RUNNING. HOB ELEVATED. SIDE RAILS UP AND LOCKED. BED KEPT AT LOWEST POSITION. WILL CONTINUE TO MONITOR.
--- NOTE | 2019-09-24 08:00 | NUR ---
SYSTEMS DEVELOPMENT CONSULTANT NOTE RT AT BEDSIDE REMOVED BIPAP AND PLACED ON NC. WILL CONTINUE TO MONITOR.
[2019-09-24] MEDS: DOCUSATE SODIUM LIQ 100 MG/10 ML UDC GT SCH ×2 (08:52→17:28)
[2019-09-24] MEDS: FLUCONAZOLE IN NS,PREMIX 400 MG in PREMIX 1 EA IV SCH ×2 (08:52)
[2019-09-24] MEDS: LEVOTHYROXINE SODIUM 50 MCG TABLET PO SCH (08:52)
[2019-09-24] MEDS: PANTOPRAZOLE 40 MG VIAL IV SCH (08:52)
[2019-09-24] MEDS: TAMSULOSIN 0.4 MG CAP.SR.24H GT SCH (08:52)
[2019-09-24] MEDS: ACETAMINOPHEN 325 MG TABLET PO PRN ×2 (08:52→17:28)
[2019-09-24] MEDS: LACTOBACILLUS RHAMNOSUS GG 1 EACH CAP.SPRINK GT SCH ×2 (08:52→17:28)
[2019-09-24] MEDS: DONEPEZIL 5 MG TABLET GT SCH (08:52)
[2019-09-24] MEDS: Z GUARD REMEDY 2 OZ OINT TP SCH ×2 (09:09→20:39)
[2019-09-24] MEDS: POTASSIUM CL. PREMIX PERIPHER. 50 ML IV SCH ×4 (09:54→13:21)
--- NOTE | 2019-09-24 10:45 | NUR ---
CAR REPAIRER NOTE NOTED PATIENT WITH ELEVATED HR, BP, RESPIRATIONS. DENIES SOB. SUCTIONED NEEDED. RT INFORMED, PATIENT PLACED BACK ON BIPAP.
[2019-09-24] MEDS ORDERED: NEUTRA PHOS 1 POWD.PACKET GT ONE (11:30)
[2019-09-24] MEDS: SCOPOLAMINE HBR 1 EA PATCH.TD72 TD SCH (13:21)
--- NOTE | 2019-09-24 18:31 | NUR ---
PULLER THROUGH NOTE SISTER AND CAREGIVER AT BEDSIDE. REQUESTED FOR BIPAP TO BE REMOVED. PLACED PATIENT ON 5LPM O2 VIA NC, WILL CONTINUE TO MONITOR. Addendum: 09/24/19 at 1832 by ASHTYN SILVER RN ORAL CARE RENDERED.
--- NOTE | 2019-09-24 19:00 | NUR ---
RADIO TIME SALES SUPERVISOR CLOSING NOTE PATIENT RESTING COMFORTABLY AT THIS TIME, PLACED BACK ON BIPAP, TOLERATING CURRENT SETTINGS. GT PATENT AND INTACT, IN PLACE. F/C PATENT, AND IN PLACE DRAINING BY GRAVITY. KEPT CLEAN AND DRY. TURNED AND REPOSITIONED Q2 AND PRN. HOB ELEVATED. SIDE RAILS UP AND LOCKED. BED KEPT AT LOWEST POSITION. CALL LIGHT KEPT WITHIN EASY REACH. CONTINUITY OF CARE ENDORSED TO PM NURSE.
--- NOTE | 2019-09-24 20:00 | NUR ---
BIOMATERIALS ENGINEER NOTE PT IN BED WITH BIPAP ON. TOLERATING THE SETTING, SLEEPING AROUSABLE. NO DISTRESS OR DISCOMFORT NOTED. NO S/S OF PAIN NOTED. GT IS CLAMPED, PT REMAIN NPO DUE TO ON BIPAP PER MD ORDERS. F/C INTACT AND PATENT DRAINING ANJALI COLOR URINE WITH SEDIMENTS. ON TELE SR HR 87. VSS. SIDE RAILS UP X 3 AND CALL LIGHT WITHIN REACH. SITTER AND ELECTRONIC SCIENCE TEACHER AT BED SIDE. CONTINUE TO MONITOR HIM.
--- NOTE | 2019-09-24 20:10 | NUR ---
ATTENUATOR NOTE INFORMED PT'S SISTER TO MEET IN THE MORNING WITH MD TO DISCUSS PLAN OF CARE. PER SISTER, SHE CAN'T COME BEFORE 12:30 PM.
[2019-09-25] VITALS (24 sets, daily range): BP systolic 135–173; BP diastolic 59–83
[2019-09-25] MEDS: IV D5/ 0.9% NACL 1,000 ML IV PRN ×2 (00:50→15:11)
[2019-09-25 04:30] LABS: BASOPHILS # (AUTO) 0.1 /CMM (0.0-0.2); BASOPHILS % (AUTO) 0.2 % (0.0-2.0); EOSINOPHILS % (AUTO) 0.3 % (0.0-6.0); HEMATOCRIT 25 % (39-51); HEMOGLOBIN 7.8 g/dL (13.5-17.5); LYMPHOCYTES # (AUTO) 3.3 /CMM (0.8-4.8); LYMPHOCYTES % (AUTO) 8.4 % (20.0-44.0); MEAN CORPUSCULAR HGB CONC 31 g/dl (31.0-36.0); MEAN CORPUSCULAR VOLUME 83 fL (80-96); MONOCYTES # (AUTO) 2.3 /CMM (0.1-1.30); MONOCYTES % (AUTO) 5.9 % (2.0-12.0); NEUTROPHILS # (AUTO) 33.5 /CMM (1.8-8.9); NEUTROPHILS % (AUTO) 85.2 % (43.0-81.0); PLATELET COUNT (AUTO) 498 /CMM (150-450); RED BLOOD CELL COUNT(AUTO) 3.05 MIL/uL (4.5-6.0)
[2019-09-25 04:33] LABS: WHITE BLOOD COUNT (AUTO) 39.4 K/uL (4.3-11.0)
[2019-09-25 04:53] LABS: CALCIUM, SERUM 9.1 mg/dL (8.5-10.1); CARBON DIOXIDE 31 mmol/L (21-32); CHLORIDE 108 mmol/L (98-107); CREATININE 0.5 mg/dL (0.6-1.3); GLUCOSE 115 mg/dL (74-106); PHOSPHORUS 2.4 mg/dL (2.5-4.9); POTASSIUM 3.2 mmol/L (3.5-5.1); SODIUM SERUM 149 mmol/L (136-145); UREA NITROGEN, BLOOD 9 mg/dL (7-18)
[2019-09-25] MEDS: MEROPENEM 1 G in IV NS 0.9% 100 ML IV SCH ×3 (05:06→20:30)
--- NOTE | 2019-09-25 06:50 | NUR ---
RADIOLOGICAL ENGINEER NOTE PT IN BED ON BIPAP SLEEPING, NO DISTRESS OR DISCOMFORT NOTED. NO S/S OF PAIN NOTED. ON TELE MONITOR SR 79. IVF D5NS INFUSING AT 75 ML/HR, 0 ML RESIDUAL NOTED. GT REMAIN CLAMPED. REPOSITION HIM Q2H, KEPT HIM DRY AND CLEAN. ALL NEEDS ATTENDED. WILL ENDORSE TO DAY SHIFT NURSE FOR CONTINUE TO CARE.
[2019-09-25 07:36] LABS: LYMPHOCYTES % (MANUAL) 9 % (16-48); MONOCYTES % (MANUAL) 10 % (0-11.0); NEUTROPHILS % (MANUAL) 81 (42-76)
[2019-09-25] MEDS: DOCUSATE SODIUM LIQ 100 MG/10 ML UDC GT SCH ×2 (08:03→17:40)
[2019-09-25] MEDS: LACTOBACILLUS RHAMNOSUS GG 1 EACH CAP.SPRINK GT SCH ×2 (08:03→17:40)
[2019-09-25] MEDS: PANTOPRAZOLE 40 MG VIAL IV SCH (08:03)
[2019-09-25] MEDS: TAMSULOSIN 0.4 MG CAP.SR.24H GT SCH (08:03)
[2019-09-25] MEDS: DONEPEZIL 5 MG TABLET GT SCH (08:03)
[2019-09-25] MEDS: LEVOTHYROXINE SODIUM 50 MCG TABLET PO SCH (08:03)
[2019-09-25] MEDS: FLUCONAZOLE IN NS,PREMIX 400 MG in PREMIX 1 EA IV SCH ×2 (08:06)
[2019-09-25] MEDS: Z GUARD REMEDY 2 OZ OINT TP SCH ×2 (09:00→20:30)
[2019-09-25] MEDS: ACETAMINOPHEN 325 MG TABLET PO PRN ×2 (09:59→17:52)
--- NOTE | 2019-09-25 10:17 | NUR ---
RN NOTES 0730-RECEIVED PATIENT FROM RN. PATIENT REMAINS ON BiPAP FOR RESPIRATORY ASSIATNCE. OPENS EYES TO VOICE, FOLLOWS 1 SIMPLE COMMAND. DENIES PAIN WHEN ASKED. ORAL CARE DONE. HOB UP TO 40 DEGREES. IVF INFUSING WELL VIA RUE MIDLINE. 1000-PATIENT RESTLESS, SUCTIONED SAFELY LEFT NASOTRACHEALLY, HOB AT 40 DEGREES. OTIC, TOASTER OPERATOR, IN FOR VISIT.
[2019-09-25] MEDS ORDERED: NEUTRA PHOS 1 POWD.PACKET GT ONE (11:00)
[2019-09-25] MEDS: POTASSIUM CHLORIDE 20 MEQ POWDER PACKET GT SCH ×2 (11:42→12:41)
--- NOTE | 2019-09-25 14:09 | NUR ---
RN NOTES 1300-PATIENT SISTER, CAREGIVER (FAMILY) SPOKE WITH DR. LALA, PER DR LALA FAMILY WILL TALK TO PATIENT.
[2019-09-25] MEDS ORDERED: FEE PK DOSING 1 MIN EA MC ONE (16:06)
--- NOTE | 2019-09-25 17:35 | NUR ---
RN NOTES 1500-PATIENT SISTER, BRANDEN AND CAREGIVER, ANGELA UNABLE TO MAKE DECISION AT THIS TIME.THEY HAVE BEEN TRYING TO ELICIT RESPONSE FROM PATIENT BUT PATIENT IS UNABLE TO CONVERSE OR TALK IN FULL SENTENCE. 1700-PATIENT SUCTIONED SAFELY VIA LEFT NARE.
[2019-09-25] MEDS: VANCOMYCIN 1 GM in IV D5W 250 ML IV SCH (18:51)
--- NOTE | 2019-09-25 19:03 | NUR ---
RN NOTES 1900-PATIENT PERKS UP AFTER SUCTIONING SAFELY. REMINDED HIM TO KEEP MASK ON SINCE HE IS NOT ABLE TO MAINTAIN SATURATION >90 AFTER SEVERAL MINUTES OFF BiPAP. SAFETY MAINTAINED
--- NOTE | 2019-09-25 20:00 | NUR ---
MANAGER ECONOMIC NOTE RECEIVED PT IN BED ON BIPAP, TOLERATING SETTINGS WELL,RESPONSIVE TO VERBAL AND TACTILE STIMULATION. ON TELE MONITOR SR WITH BBB HR 74. NO DISTRESS OR DISCOMFORT NOTED. NO S/S OF PAIN NOTED. KEPT HOB ELEVATED 40 DEGREES. GT REMAIN CLAMPED. PT IS NPO. IVF D5NS INFUSING AT 75 ML/HR, NO S/S OF INFILTRATION NOTED. REPOSITION HIM FOR SKIN MANAGEMENT. F/C INTACT AND PATENT DRAINING ANJALI COLOR CLOUDY URINE. SIDE RAILS UP X 3 AND CALL LIGHT WITHIN REACH. VSS. CONTINUE TO MONITOR HIM.
[2019-09-25 20:15] LABS: APPEARANCE,URINE CLEAR (CLEAR); BILIRUBIN,URINE NEGATIVE (NEGATIVE); BLOOD, URINE NEGATIVE Ery/uL (NEGATIVE); COLOR,URINE YELLOW (YELLOW); KETONES,URINE NEGATIVE (NEGATIVE); LEUKOCYTE ESTERASE ,URINE NEGATIVE (NEGATIVE); NITRITE, URINE NEGATIVE (NEGATIVE); PROTEIN,URINE NEGATIVE (NEGATIVE); UGLUCOSE NEGATIVE (NEGATIVE)
[2019-09-25 20:23] LABS: BACTERIA,URINE Rare /HPF (None Seen); RBC,URINE 0-2 /HPF (0-2); SQUAMOUS EPITHELIAL CELL,UR Few /HPF (None Seen); WBC,URINE 0-2 /HPF (0-3)
[2019-09-26] VITALS (24 sets, daily range): BP systolic 132–168; BP diastolic 61–88
[2019-09-26] MEDS: HYDROCODONE/APAP 5/325MG 1 EACH TABLET PO PRN (01:14)
[2019-09-26] MEDS: IV D5/ 0.9% NACL 1,000 ML IV PRN ×2 (03:23→20:12)
[2019-09-26 04:26] LABS: BASOPHILS # (AUTO) 0.1 /CMM (0.0-0.2); BASOPHILS % (AUTO) 0.3 % (0.0-2.0); EOSINOPHILS % (AUTO) 0.4 % (0.0-6.0); HEMATOCRIT 26 % (39-51); HEMOGLOBIN 8.2 g/dL (13.5-17.5); LYMPHOCYTES # (AUTO) 3.4 /CMM (0.8-4.8); LYMPHOCYTES % (AUTO) 9.3 % (20.0-44.0); MEAN CORPUSCULAR HGB CONC 31 g/dl (31.0-36.0); MEAN CORPUSCULAR VOLUME 84 fL (80-96); MONOCYTES # (AUTO) 2.4 /CMM (0.1-1.30); MONOCYTES % (AUTO) 6.6 % (2.0-12.0); NEUTROPHILS % (AUTO) 83.4 % (43.0-81.0); PLATELET COUNT (AUTO) 451 /CMM (150-450); RED BLOOD CELL COUNT(AUTO) 3.15 MIL/uL (4.5-6.0)
[2019-09-26] MEDS: MEROPENEM 1 G in IV NS 0.9% 100 ML IV SCH ×3 (04:28→20:30)
[2019-09-26 04:38] LABS: CREATININE 0.6 mg/dL (0.6-1.3); MAGNESIUM 1.8 mg/dL (1.8-2.4); PHOSPHORUS 2.3 mg/dL (2.5-4.9)
[2019-09-26 05:02] LABS: WHITE BLOOD COUNT (AUTO) 37.1 K/uL (4.3-11.0)
[2019-09-26] MEDS: VANCOMYCIN 1 GM in IV D5W 250 ML IV SCH ×2 (05:08→16:46)
[2019-09-26 05:44] LABS: LYMPHOCYTES % (MANUAL) 6 % (16-48); MONOCYTES % (MANUAL) 9 % (0-11.0); NEUTROPHILS % (MANUAL) 85 (42-76)
--- NOTE | 2019-09-26 06:58 | NUR ---
COUNCIL ON AGING DIRECTOR NOTE NO CHANGE IN CONDITION. PT IS RESPONSIVE AND AWAKE. REMAIN ON BIPAP TOLERATING IT WELL. NO DISTRESS OR DISCOMFORT NOTED. NO S/S OF PAIN NOTED. IVF INFUSING WELL. ON TELE SR WITH BBB HR 85. F/C INTACT AND PATENT DRAINING WELL ANJALI COLOR URINE WITH SEDIMENTS. REPOSITION HIM Q2H, KEPT HIM DRY AND CLEAN. ALL NEEDS ATTENDED. SIDE RAILS UP X 2 AND CALL LIGHT WITHIN REACH. WILL ENDORSE TO DAY SHIFT NURSE FOR CONTINUE TO CARE.
[2019-09-26] MEDS ORDERED: POTASSIUM CHLORIDE 20 MEQ POWDER PACKET GT ONE ×3 (08:30→17:00)
[2019-09-26] MEDS: LACTOBACILLUS RHAMNOSUS GG 1 EACH CAP.SPRINK GT SCH ×2 (08:58→16:44)
[2019-09-26] MEDS: DONEPEZIL 5 MG TABLET GT SCH (08:58)
[2019-09-26] MEDS: PANTOPRAZOLE 40 MG VIAL IV SCH (08:58)
[2019-09-26] MEDS: FLUCONAZOLE IN NS,PREMIX 400 MG in PREMIX 1 EA IV SCH ×2 (08:58)
[2019-09-26] MEDS: LEVOTHYROXINE SODIUM 50 MCG TABLET PO SCH (08:58)
[2019-09-26] MEDS: TAMSULOSIN 0.4 MG CAP.SR.24H GT SCH (08:58)
[2019-09-26] MEDS: DOCUSATE SODIUM LIQ 100 MG/10 ML UDC GT SCH ×2 (08:58→16:43)
[2019-09-26] MEDS: Z GUARD REMEDY 2 OZ OINT TP SCH ×2 (08:59→20:56)
[2019-09-26 09:30] LABS: BILIRUBIN,DIRECT 0.2 mg/dL (0.0-0.2); BILIRUBIN,TOTAL 0.4 mg/dL (0.2-1.0)
--- NOTE | 2019-09-26 09:56 | NUR ---
WOUND CARE CONSULT: PT SEEN FOR SKIN ASSESSMENT AND NOTED TO HAVE SACRAL DEEP TISSUE INJURY IN EVOLUTION. PT NOTED TO HAVE MULTIPLE COMORBIDITIES INCLUDING RESPIRATORY FAILURE, METASTATIC DISEASE, ANEMIA, MALNUTRITION AND PARKINSONS DISEASE. RECOMMENDATIONS MADE FOR SKIN PROTECTION AND WOUND CARE. DISCUSSED WITH NURSING STAFF. [facility]. CURRENT JOSE ALBERTO SCORE IS 12. MD IN AGREEMENT WITH PLAN OF CARE. Addendum: 09/26/19 at 0959 by SUKUMAR GUILLAUME WNDNU Amended: Links added.
[2019-09-26] MEDS ORDERED: NEUTRA PHOS 1 POWD.PACKET GT ONE (12:00)
--- NOTE | 2019-09-26 14:49 | NUR ---
RN NOTE 0715: Received patient resting, able to arouse by calling his name. On Bipap, no respiratory distress noted at this time. With SUNIL midline intact. IVF infusing as ordered. With Simon cath intact, noted with clear hayden colored urine drained to BSD. Will keep patient comfortable. 1425: RT placed patient on Venturi mask at 50%, in about 10 minutes noted patient with increased work of breathing and Sat 88%. Able to answer yes/no question and states he prefers to have the Bipap(mask pushing air for him) 1445: Kept patient comfortable. Kept clean, warm and dry. Needs attended.
--- NOTE | 2019-09-26 16:50 | NUR ---
RN NOTE Sister and caregiver [place] at bedside, updated re:m patient's condition, made them aware for the trial off Bipap but only lasted about 15 min and he had increased work of breathing and desat 88%. Made them aware patient was able to answer yes/no questions at times, and was able to request to place him back on Bipap because he is more comfortable on Bipap machine as evidenced by he became calm and BP is not high when placed back on Bipap.
--- NOTE | 2019-09-26 17:43 | NUR ---
RN NOTE Made pharmacy aware for the Vanco tr result 9, said to gave the 1 gm dose and they will adjust next dose.
--- NOTE | 2019-09-26 18:33 | NUR ---
RN NOTE Tried suctioning patient via NT but patient is dry. Noted having hard time breathing when off Bipap, Deshawn and sister are there during suctioning, asked patient if wants to say something to loved ones but patient wanted to place back on Bipap due to hard time breathing.
--- NOTE | 2019-09-26 19:30 | NUR ---
ICU NOTES RECEIVED PT ON BIPAP 40% FIO2 SATURATION OF 98%,RATE 16,E/I 15/5 +PS OF 10.OPENS EYES WHEN NAME CALLED.FOLLOWS SIMPLE VERBAL COMMANDS.MONITOR SHOWS NSR W/BBB.KO PATENT W/ANJALI URINE.
--- NOTE | 2019-09-26 19:47 | NUR ---
PT found on Bipap with noted setting. Pt tolerating setting well. No sob or distress noted at this time. No skin breakdown noted under mask. will continue to monitor. Addendum: 09/26/19 at 1949 by CARA HUSSEIN RT Amended: Links added.
[2019-09-26] MEDS ORDERED: IV NS 0.9% 250 ML IV ONE (20:30)
[2019-09-26] MEDS ORDERED: IV NS 0.9% 250 ML BAG IV PRN (21:00)
[2019-09-27] VITALS (24 sets, daily range): BP systolic 113–171; BP diastolic 59–90
--- NOTE | 2019-09-27 02:00 | NUR ---
ICU NOTES REPOSITION AND TURNED.TOLERATING BIPAP WELL W/SAT 95-96%.
--- NOTE | 2019-09-27 04:00 | NUR ---
ICU NOTES COMPLETE BED BATH DONE MEPILEX VIA SACRUM CHANGED WOUND CLEAN AND DRY.REPOSITIONED ONTO RT. SIDE.
[2019-09-27] MEDS: MEROPENEM 1 G in IV NS 0.9% 100 ML IV SCH ×3 (04:39→21:38)
[2019-09-27 04:41] LABS: BASOPHILS % (AUTO) 0.1 % (0.0-2.0); EOSINOPHILS % (AUTO) 0.5 % (0.0-6.0); HEMATOCRIT 28 % (39-51); HEMOGLOBIN 8.5 g/dL (13.5-17.5); LYMPHOCYTES # (AUTO) 3.9 /CMM (0.8-4.8); LYMPHOCYTES % (AUTO) 9.6 % (20.0-44.0); MEAN CORPUSCULAR HGB CONC 31 g/dl (31.0-36.0); MEAN CORPUSCULAR VOLUME 83 fL (80-96); MONOCYTES # (AUTO) 2.5 /CMM (0.1-1.30); MONOCYTES % (AUTO) 6.2 % (2.0-12.0); NEUTROPHILS # (AUTO) 33.7 /CMM (1.8-8.9); NEUTROPHILS % (AUTO) 83.6 % (43.0-81.0); PLATELET COUNT (AUTO) 424 /CMM (150-450); RED BLOOD CELL COUNT(AUTO) 3.33 MIL/uL (4.5-6.0)
[2019-09-27 04:57] LABS: CREATININE 0.7 mg/dL (0.6-1.3); MAGNESIUM 1.9 mg/dL (1.8-2.4); PHOSPHORUS 2.7 mg/dL (2.5-4.9); POTASSIUM 3.7 mmol/L (3.5-5.1)
[2019-09-27] MEDS ORDERED: VANCOMYCIN 1.25 GM in IV D5W 250 ML IV SCH (05:00)
[2019-09-27 05:11] LABS: WHITE BLOOD COUNT (AUTO) 40.3 K/uL (4.3-11.0)
[2019-09-27 05:59] LABS: EOSINOPHILS % (MANUAL) 1 % (0-4); LYMPHOCYTES % (MANUAL) 3 % (16-48); MONOCYTES % (MANUAL) 4 % (0-11.0); NEUTROPHILS % (MANUAL) 92 (42-76)
--- NOTE | 2019-09-27 07:00 | NUR ---
ICU NOTES REPORT AND CARE GIVEN TO ONOFRE SRIVASTAVA.
--- NOTE | 2019-09-27 07:40 | NUR ---
ICU/RN PT IS ON THE BI-PAP,FIO2-100%, SAT 02-96%.V/S STABLE AFEBRILE.PT IS AWAKE,OPEN HIS EYES.IV INFUSING ORDERED.PT G-TUNE CLAMPED,PT IS NPO.HIGH RISK OF ASPIRATION. F/C DRAING WITH YELLOW URINE.WOUND ON THE LOWER BACK COVERED WITH DRESSING REPOSITION FOR COMFORT.
[2019-09-27] MEDS: DOCUSATE SODIUM LIQ 100 MG/10 ML UDC GT SCH ×2 (08:10→16:35)
[2019-09-27] MEDS: LEVOTHYROXINE SODIUM 50 MCG TABLET PO SCH (08:10)
[2019-09-27] MEDS: FLUCONAZOLE IN NS,PREMIX 400 MG in PREMIX 1 EA IV SCH ×2 (08:10)
[2019-09-27] MEDS: DONEPEZIL 5 MG TABLET GT SCH (08:10)
[2019-09-27] MEDS: TAMSULOSIN 0.4 MG CAP.SR.24H GT SCH (08:10)
[2019-09-27] MEDS: PANTOPRAZOLE 40 MG VIAL IV SCH (08:10)
[2019-09-27] MEDS: LACTOBACILLUS RHAMNOSUS GG 1 EACH CAP.SPRINK GT SCH ×2 (08:10→16:34)
[2019-09-27] MEDS: Z GUARD REMEDY 2 OZ OINT TP SCH ×2 (08:11→21:41)
--- NOTE | 2019-09-27 09:10 | NUR ---
ICU/RN DUE MEDS ARE GIVEN ORDERED.
[2019-09-27] MEDS: IV D5/ 0.9% NACL 1,000 ML IV PRN (12:21)
[2019-09-27] MEDS: SCOPOLAMINE HBR 1 EA PATCH.TD72 TD SCH (15:08)
--- NOTE | 2019-09-27 19:30 | NUR ---
GLAZE MAKER: RECEIVED PT ON BIPAP WT SETTINGS ORDERED. OPENS EYES, LETHARGIC, ABLE TO FOLLOW COMMANDS AT TIMES. SR ON POLICE SERGEANT PRECINCT. AFEBRILE. HOB AT 45 DEGREES. BED IN LOWEST POSITION AND LOCKED, SIDE RAILS UP X 2. WILL CONTINUE TO MONITOR.
--- NOTE | 2019-09-27 21:40 | NUR ---
ICU/RN- PT. GRIMACING, PAIN SCALE 5/10 USING THE FLACC PAIN SCALE. BP-162/75, HR-102. NORCO 1 TAB PER GT GIVEN. WILL REASSESS FOR PRN EFFECTIVENESS.
[2019-09-27] MEDS: HYDROCODONE/APAP 5/325MG 1 EACH TABLET PO PRN (21:45)
--- NOTE | 2019-09-27 22:40 | NUR ---
OTTER TRAWLER [place]IN: PT REASSESSED AFTER GIVEN NORCO WT GOOD EFFECT. NO FACIAL GRIMACE NOTED. CAREGIVER AT BEDSIDE. STILL ON BIPAP AT 40% FI02. REMAINS LETHARGIC. FOLLOWS COMMANDS AT TIMES. WILL CONTINUE TO MONITOR.
[2019-09-28] VITALS: BP 104/63
[2019-09-28 01:00] VITALS: BP 128/71
[2019-09-28 02:00] VITALS: BP 130/61
--- NOTE | 2019-09-28 02:08 | NUR ---
fiO2 increased to 100% do to low o2 sat 77%. CAROLA Lewis notified.
--- NOTE | 2019-09-28 02:15 | NUR ---
MIGRATION AGENT: CALLED AND NOTIFIED SISTER BRANDEN OF PT DESATURATION AND SINUS BRADYCARDIA WT WT SHALLOW BREATHING. SISTER SAID SHE WILL COME TO SEE PT. COMFORT MEASURES PROVIDED AT ALL TIMES.
--- NOTE | 2019-09-28 02:35 | NUR ---
RAND TACKER: PT NOTED ASYSTOLE ON PUBLIC UTILITIES SALES REPRESENTATIVE. NO BP APPRECIATED, NO PULSE PALPATED ON MAJOR ARTERIES AND NO RISING AND FALLING OF CHEST. CHARGE NURSE JOSE MARTIN PRONOUNCED EXPIRATION TIME AT 0230. NOTIFIED KELLE COPELAND, INFANT ROOM TEACHER. NURSING CANCELING AND CUTTING CONTROL CLERK MADELINE MADE AWARE, ADMITTING STAFF JOSE MARTIN NOTIFIED. [facility] CALLED AND SPOKE SURYA HERNANDEZ, REFERENCE ID # [id number] AND SAID THAT CASE IS CLOSED.
--- NOTE | 2019-09-28 02:50 | NUR ---
ELECTROPLATER HELPER: POST MORTEM CARE RENDERED. SISTER AND CAREGIVER AT BEDSIDE.
--- NOTE | 2019-09-28 04:00 | NUR ---
TRUCK SALES REPRESENTATIVE: CALLED [facility] AND SPOKE WT FANTASMA. PT INFO GIVEN AND SAID THEY WILL CALL BACK FOR TIME OF BODY DRAW FURNACE TENDER.
--- NOTE | 2019-09-28 04:12 | NUR ---
ICU /RN- PRONOUNCEMENT OF :CODE STATUS:DNR,DNI". PT. UNRESPONSIVE, PUPILS ARE FIXED AND DILATED. APNEIC. RESPIRATIONS ARE ZERO.EKG ASYSTOLE X 2 LEADS. HEART TONES ARE ABSENT. PERIPHERAL PULSES ARE NON PALPABLE. NO SIGNS OF LIFE. PT. PRONOUNCED AT 0230. BY:JOSE MARTIN SEGAL RN,BSN.
--- NOTE | 2019-09-28 04:15 | NUR ---
HAND STAMPER: SHIV FROM [facility] CALLED BACK AND SAID SISTER BRANDEN NEEDS TO CALL THEM THERE IS NO CURRENT PRE-MADE ARRANGEMENT. CALLED AND LEFT A MESSAGE TO SISTER WELL CAREGIVER ANGELA AT [phone].
--- NOTE | 2019-09-28 05:35 | NUR ---
VETERINARY SURGERY TECHNICIAN: BODY PICKED UP BY SECURITY AND BROUGHT TO [facility] ACCOMPANIED BY RN WT NO BELONGINGS.
== END 2019-09-28 02:30 | disposition expired | DRG 871 ==
LOC: ER 22:09 → ICU 23:56 → TELE-TD 09-18 15:55 → ICU 09-21 09:45
PROVIDERS: ADMIT Student in an Organized Health Care Education/Training Program; ATTEND Internal Medicine
PROC: 5A09357 Assistance with Respiratory Ventilation, Less than 24 Consecutive Hours, Continuous Positive Airway Pressure (ICD-10-PCS; 2019-09-15)
PROC: 05H933Z Insertion of Infusion Device into Right Brachial Vein, Percutaneous Approach (ICD-10-PCS; 2019-09-15)
PROC: 5A09557 Assistance with Respiratory Ventilation, Greater than 96 Consecutive Hours, Continuous Positive Airway Pressure (ICD-10-PCS; principal; 2019-09-22)
DX: A41.9 Sepsis, unspecified organism (principal); J15.6 Pneumonia due to other Gram-negative bacteria; Z66 Do not resuscitate; J96.01 Acute respiratory failure with hypoxia; E43 Unspecified severe protein-calorie malnutrition; R53.2 Functional quadriplegia; J69.0 Pneumonitis due to inhalation of food and vomit; N39.0 Urinary tract infection, site not specified; D68.59 Other primary thrombophilia; E87.2 Acidosis; C78.01 Secondary malignant neoplasm of right lung; C78.02 Secondary malignant neoplasm of left lung; C77.8 Secondary and unspecified malignant neoplasm of lymph nodes of multiple regions; C78.1 Secondary malignant neoplasm of mediastinum; Z93.1 Gastrostomy status; E87.6 Hypokalemia; D72.829 Elevated white blood cell count, unspecified; R74.0 Nonspecific elevation of levels of transaminase and lactic acid dehydrogenase [LDH]; R13.10 Dysphagia, unspecified; K22.0 Achalasia of cardia; D47.3 Essential (hemorrhagic) thrombocythemia; Z68.21 Body mass index [BMI] 21.0-21.9, adult; E88.09 Other disorders of plasma-protein metabolism, not elsewhere classified; Z74.01 Bed confinement status; N40.0 Benign prostatic hyperplasia without lower urinary tract symptoms; I10 Essential (primary) hypertension; G20 Parkinson's disease; F03.90 Unspecified dementia, unspecified severity, without behavioral disturbance, psychotic disturbance, mood disturbance, and anxiety; D63.8 Anemia in other chronic diseases classified elsewhere; S22.41XD Multiple fractures of ribs, right side, subsequent encounter for fracture with routine healing; E04.2 Nontoxic multinodular goiter; C73 Malignant neoplasm of thyroid gland
CPT/HCPCS: 31720; 36415; 36600; 71045-TC; 80048-TC; 80053-TC; 80061-TC; 80076-TC; 80202-TC; 81000-TC; 82040-TC; 82105; 82247-TC; 82248-TC; 82803-TC; 83605-TC; 83615-TC; 83735-TC; 83880; 84100-TC; 84439-TC; 84443-TC; 84484-TC; 84702-TC; 85025-TC; 85730-TC; 87040-TC; 87070-TC; 87081-TC; 87086-TC; 94640-TC; 94760-TC; 94762-TC; 94799-TC; A4216; A4624; C9113; G0378; J0744; J1450; J2060; J2185; J2543; J3370; J3480; J7030; J7042; J7050; J7060; P9047